=== PATIENT | female | born 1955 | race Caucasian/White ===

== ENCOUNTER 2016-05-21 22:08 | Observation (INO) | payer MEDICAID ==
[~2016-05-21 22:08] MED LIST: ALBU0.086 INH; ASCO500C PO; BECL80AE3 INH; CRAN450T PO; DIPH25 PO; DOCU1CAP39 PO; FURO1TAB93 PO; HYDR-4197 PO; INSU100V2 SQ; ISOS30 PO; KCL20 PO; LISI-363 PO; METF1000 PO; MULTTAB6 PO; NITR0.4S SL; PERC5TAB12 PO; PHEN12.5 PR; PREG25 PO; PROM25TA5 PO; PROT40TA PO; REST30CA PO; RIVA20 PO
[2016-05-21 22:14] VITALS: BP 189/84; PULSE 92; RESP 16; TEMP 98.6; O2SAT 96
[2016-05-21] MEDS ORDERED: ceFAZolin 2 GM PREMIX 50 ML IV ONE (22:45)
[2016-05-21] MEDS ORDERED: SODIUM CHLOR 0.9% 1000 ML INJ 1,000 ML IV SCH (22:45)
[2016-05-21] MEDS ORDERED: DIPHTH/TETANUS/ACEL PERTUSSIS (BOOSTER) 0.5 ML VIAL/PFS IM ONE (22:45)
[2016-05-21 23:09] LABS: AUTOMATED NEUTROPHIL # 3.4 TH/MM3 (1.8-7.7); BASOPHIL # 0.1 TH/MM3 (0-0.2); BASOPHIL % 1.3 % (0.0-2.0); EOSINOPHIL % 0.7 % (0.0-4.0); HEMATOCRIT 42.6 % (35.0-46.0); HEMO FLAGS DIFF FINAL; LYMPH % 26.2 % (9.0-44.0); LYMPHOCYTE # 1.4 TH/MM3 (1.0-4.8); MEAN CELL VOLUME 92.3 FL (80.0-100.0); MEAN CORPUSCULAR HEMOGLOBIN 32.4 PG (27.0-34.0); MEAN CORPUSCULAR HGB CONC 35.1 % (32.0-36.0); MONO % 7.5 % (0.0-8.0); NEUT % 64.3 % (16.0-70.0); PLATELET COUNT 162 TH/MM3 (150-450); RED BLOOD COUNT 4.62 MIL/MM3 (4.00-5.30); RED CELL DISTRIBUTION WIDTH 15.2 % (11.6-17.2); WHITE BLOOD COUNT 5.3 TH/MM3 (4.0-11.0)
[2016-05-21 23:19] LABS: APTT (PATIENT) 23.5 SEC (24.3-30.1)
[2016-05-21 23:25] LABS: ALKALINE PHOSPHATASE 113 U/L (45-117); ALT (GPT) 88 U/L (10-53); ANION GAP 12 MEQ/L (5-15); AST (GOT) 120 U/L (15-37); BICARBONATE 24.5 MEQ/L (21.0-32.0); BLOOD UREA NITROGEN 8 MG/DL (7-18); CHLORIDE 109 MEQ/L (98-107); GLOMERULAR FILTRATION RATE 57 ML/MIN (>89); SODIUM (NA) 145 MEQ/L (136-145); TOTAL BILIRUBIN ADULT 0.4 MG/DL (0.2-1.0)
[2016-05-21 23:27] LABS: CREATINE KINASE 55 U/L (26-192)
[2016-05-21 23:28] LABS: POTASSIUM 2.7 MEQ/L (3.5-5.1)
[2016-05-21 23:50] LABS: BACTERIA, URINE OCC /hpf; BLOOD, URINE NEG (NEG); GLUCOSE,URINE NEG (NEG); HYALINE CAST, URINE 1 /lpf (RARE); KETONE, URINE NEG (NEG); MUCUS URINE FEW /lpf (OCC); NITRITE,URINE NEG (NEG); PH, URINE 5.5 (5.0-8.5); SQUAMOUS EPITHELIAL CELL URINE 1 /hpf (0-5); URINE COLOR LIGHT-YELLOW (YELLW/STRAW)
[2016-05-21 23:55] LABS: AMPHETAMINE, URINE NEG (NEG); BARBITURATES, URINE NEG (NEG); COCAINE, URINE NEG (NEG)
[2016-05-21 23:58] LABS: COMMENT (UR) CULT NOT INDICATED; CULTURE IF INDICATED CULT NOT INDICATED
[2016-05-22] VITALS (11 sets, daily range): BP systolic 117–206; BP diastolic 67–118; PULSE 68–116; RESP 16–20; TEMP 96.8–98.6; O2SAT 95–99
--- NOTE | 2016-05-22 00:07 | RADRPT ---
EXAM DATE/TIME: 05/21/2016 23:37 [facility] COMPARISON: No previous studies available for comparison. INDICATIONS : Pelvic pain after fall. MEDICAL HISTORY : Chronic obstructive pulmonary disease. Cerebrovascular disease. Cardiovascular disease. Uterine cance r. Hypothryoidsim. Myocardial infarction. Hernia. Bladder suspension. Diabetes. Hepatitis C. SURGICAL HISTORY : Appendectomy. Cholecystectomy. Hysterectomy. ENCOUNTER: Initial ACUITY: 1 week PAIN SCORE: 5/10 LOCATION: Bilateral pelvis FINDINGS: There is motion blurring on image. A single frontal view of the pelvis demonstrates no evidence of fr acture. The bony pelvic ring is intact. Bony mineralization is normal. The soft tissues are intact . CONCLUSION: No acute disease. Jared Hathaway MD on May 22, 2016 at 0:04 Board Certified Radiologist. This report was verified electronically.
--- NOTE | 2016-05-22 00:09 | RADRPT ---
EXAM DATE/TIME: 05/21/2016 23:39 [facility] COMPARISON: CT THORAX W/O CONTRAST, July 08, 2015, 12:54. CHEST SINGLE AP, February 25, 2015, 17:02. INDICATIONS : Chest pain after fall. MEDICAL HISTORY : Chronic obstructive pulmonary disease. Cerebrovascular disease. Cardiovascular disease. Uterine cance r. Hypothryoidsim. Myocardial infarction. Hernia. Bladder suspension. Diabetes. Hepatitis C. SURGICAL HISTORY : Appendectomy. Cholecystectomy. Hysterectomy. ENCOUNTER: Initial ACUITY: 1 week PAIN SCORE: 5/10 LOCATION: Bilateral chest FINDINGS: A single view of the chest demonstrates the lungs to be symmetrically aerated without evidence of mas s, infiltrate or effusion. The cardiomediastinal contours are unremarkable. There is an old left rib fracture seen. CONCLUSION: No acute disease. Jared Hathaway MD on May 22, 2016 at 0:06 Board Certified Radiologist. This report was verified electronically.
--- NOTE | 2016-05-22 00:22 | RADRPT ---
EXAM DATE/TIME: 05/21/2016 23:52 [facility] COMPARISON: No previous studies available for comparison. INDICATIONS : ETOH, possible fall. RADIATION DOSE: 41.98 CTDIvol (mGy) MEDICAL HISTORY : Cardiovascular disease. Seizures. Hypertension. SURGICAL HISTORY : Cholecystectomy. Appendectomy.Hysterectomy. ENCOUNTER: Initial ACUITY: 1 day PAIN SCALE: 0/10 LOCATION: cranial TECHNIQUE: Multiple contiguous axial images were obtained of the head. Using automated exposure control and adj ustment of the mA and/or kV according to patient size, radiation dose was kept as low as reasonably a chievable to obtain optimal diagnostic quality images. FINDINGS: CEREBRUM: The ventricles are normal for age. No evidence of midline shift, mass lesion, hemorrhage or acute in farction. No extra-axial fluid collections are seen. POSTERIOR FOSSA: The cerebellum and brainstem are intact. The 4th ventricle is midline. The cerebellopontine angle i s unremarkable. EXTRACRANIAL: The visualized portion of the orbits is intact. SKULL: The calvaria is intact. No evidence of skull fracture. CONCLUSION: No acute disease. Jared Hathaway MD on May 22, 2016 at 0:20 Board Certified Radiologist. This report was verified electronically.
--- NOTE | 2016-05-22 00:23 | PD ---
HPI Chief Complaint: Fall Time Seen by Provider: 22:34 Travel History International Travel<30 days: No Contact w/Intl Traveler<30days: No Traveled to known affect area: No History of Present Illness HPI The patient is a 61 year old female who presents to the [facility] emergency department with a history of reportedly being trespassed by the police due to rolling onto a person's property prior to arrival. The patient was noted to be intoxicated. The patient reportedly passed out and struck her left ear on the ground. The patient arrives awake and alert in full C-spine immobilization on a backboard. The patient reports that she's had a 12 pack of beer today. The patient denies having any acute complaints. The patient has slurred speech and an odor of alcohol about her. The patient denies any recent fevers, cough, congestion, neck pain, chest pain, shortness of breath, abdominal pain, vomiting, diarrhea, urinary symptoms, or neurologic symptoms. PFSH Past Medical History Narrative Medical The patient's past medical history is significant for alcohol abuse, arthritis, asthma, anxiety and depression, COPD, diabetes mellitus, acid reflux, history of hepatitis C, hiatal hernia, hypertension, fibromyalgia, history of DVT, hypothyroidism, history of uterine cancer. Hx Anticoagulant Therapy: Yes Arthritis: Yes Asthma: Yes Autoimmune Disease: Yes Blood Disorders: No Anxiety: Yes Depression: Yes Heart Rhythm Problems: Yes Cancer: Yes (UTERINE) High Cholesterol: No Chemotherapy: Yes Chest Pain: Yes Congestive Heart Failure: Yes COPD: Yes Cerebrovascular Accident: Yes Diabetes: Yes Patient Takes Glucophage: Yes Diminished Hearing: No Gastrointestinal Disorders: Yes GERD: Yes Glaucoma: No Headaches: Yes Hepatitis: Yes (C, INTERFERON [place]) Hiatal Hernia: Yes Hypertension: Yes Immune Disorder: Yes (FIBROMYALGIA) Kidney Stones: No Psychiatric: Yes Respiratory: Yes Integumentary: Yes Myocardial Infarction: Yes Pneumonia: Yes Seizures: Yes Sickle Cell Disease: No Sleep Apnea: No Thyroid Disease: Yes (HYPO) Ulcer: No Past Surgical History Narrative Surgical The patient's past surgical history is significant for an appendectomy, C- section 3, cholecystectomy, bladder suspension, hysterectomy, dental extractions, tonsillectomy, nasal surgery, exploratory laparoscopy. Abdominal Surgery: Yes (EX LAP x4, BOWEL BLOCKAGE X 4) AICD: No Appendectomy: Yes Arteriovenous Shunt: No Section: Yes (X 3) Cholecystectomy: Yes Genitourinary Surgery: Yes (BLADDER SUSPENSION) Hysterectomy: Yes Insulin Pump: No Joint Replacement: No Oral Surgery: Yes (DENTAL EXTRACTION) Tonsillectomy: Yes Social History Alcohol Use: Yes (12 beers this evening) Tobacco Use: Yes (1 PPD) Substance Use: No (DENIES ) Allergies-Medications (Allergen,Severity, Reaction): Coded Allergies: Dairy (Verified Allergy, Severe, Anaphylaxis, 05/21/16) Iodine (Verified Allergy, Severe, Swelling, 05/21/16) Nonsteroidal Anti-Inflammatory Agts (Verified Allergy, Severe, HAS ULCERS , 05/21/16) Sulfa (Verified Allergy, Severe, HIVES AND RASH, 05/21/16) Tylenol (Verified Adverse Reaction, Unknown, STATES REFUSES DUE TO HEP C, 05/21/16) Reported Meds & Prescriptions Reported Meds & Active Scripts Active Reported Cranberry (Cranberry (Vaccinium Macrocarpon)) 450 Mg Tab 1 Tab PO BID Restoril (Temazepam) 30 Mg Cap 30 Mg PO HS PRN Xarelto (Rivaroxaban) 20 Mg Tab 20 Mg PO DAILY Phenergan (Promethazine HCl) 25 Mg Tab 25 Mg PO QID Lyrica (Pregabalin) 25 Mg Cap 25 Mg PO TID Potassium Chloride ER (Potassium Chloride) 20 Meq Tab 20 Meq PO DAILY Protonix (Pantoprazole Sodium) 40 Mg Tab 40 Mg PO DAILY Percocet (Oxycodone-Acetaminophen) 5-325 mg Tab 1-2 Tab PO Q6H PRN Nitroglycerin SL (Nitroglycerin) 0.4 Mg Subl 0.4 Mg SL DIRECTED PRN ONE TABLET UNDER THE TONGUE NEEDED FOR CHEST PAIN, MAY REPEAT EVERY FIVE MINUTES FOR A TOTAL OF 3 DOSES OR CALL 911 IF NO RELIEF Multivitamin Adults (Multiple Vitamins W/ Minerals) 1 Tab 1 Tab PO DAILY Metformin (Metformin HCl) 1,000 Mg Tab 1,000 Mg PO DAILY With a meal Lisinopril 20 Mg Tab 20 Mg PO DAILY Novolin R Inj (Insulin Human Regular) 1,000 Unit/10 Ml Vial 0 SQ DIRECTED Sliding Scale As Directed. Hydromorphone (Hydromorphone HCl) 4 Mg Tab 4 Mg PO Q4H PRN Lasix (Furosemide) 40 Mg Tab 40 Mg PO DAILY Colace (Docusate Sodium) 100 Mg Cap 100 Mg PO BID PRN Benadryl Allergy (Diphenhydramine HCl) 25 Mg Tab 25 Mg PO QID PRN Qvar Inh (Beclomethasone Dipropionate) 80 Mcg/Act Aero 2 Puff INH BID Ascorbic Acid 500 Mg Tab 500 Mg PO BID Albuterol Neb (Albuterol Sulfate) 2.5 Mg/3 Ml Neb 2.5 Mg NEB Q4HR NEB PRN While awake Review of Systems Except as stated in HPI: all other systems reviewed are Neg General / Constitutional: No: Fever Eyes: No: Visual changes HENT: No: Headaches Cardiovascular: No: Chest Pain or Discomfort Respiratory: No: Shortness of Breath Gastrointestinal: No: Abdominal Pain Genitourinary: No: Dysuria Musculoskeletal: No: Pain Skin: No Rash Neurologic: Positive: Weakness (generalized), Syncope, Slurred Speech, No: Focal Abnormalities, Change in Mentation, Sensory Disturbance Psychiatric: No: Depression Endocrine: No: Polydipsia Hematologic/Lymphatic: No: Easy Bruising Physical Exam Narrative General: The patient is a well-developed, thin appearing female, highly intoxicated on examination with slurred speech and an odor of alcohol about her. Head and Neck exam: Head is normocephalic, with an abrasion noted to the left ear. No active bleeding. Eyes: Pupils are equal round and reactive to light. Nose: Midline septum with pink mucous membranes Mouth: Dentition unremarkable. Moist mucus membranes. Posterior oropharynx is not erythematous. No tonsillar hypertrophy. Uvula midline. Airway patent. Neck: No palpable lymphadenopathy. No nuchal rigidity. No thyromegaly. Cardiovascular: Regular rate and rhythm without murmurs, gallops, or rubs. Lungs: Clear to auscultation bilaterally. No wheezes, rhonchi, or rales. Abdomen: Soft, midepigastric abdominal discomfort on palpation. No other tenderness on palpation of the other 4 quadrants of the abdomen. No guarding, rebound, or rigidity. Negative Brandywine sign. No tenderness on palpation of McBurney's point. Normal bowel sounds are audible. Extremities: No clubbing, cyanosis, or edema. 2+ pulses in all 4 extremities. No Tenderness on palpation. Back: No spinous process tenderness to palpation. No costovertebral angle tenderness to palpation. Neurologic Exam: Cranial nerves 2-12 were intact on exam. Strength is 5/5 in all 4 extremities. No sensory deficits noted. She has slurred speech with an odor of alcohol about her. She is oriented to person, place, however not time or situation. Data Data Last Documented VS Vital Signs Date Time Temp Pulse Resp B/P Pulse Ox O2 Delivery O2 Flow Rate FiO2 05/21/16 22:14 98.6 92 16 189/84 96 Orders Alcohol (Ethanol) (05/21/16 22:35) Urinalysis - C+S If Indicated (05/21/16 22:35) Chest, Single Ap (05/21/16 22:35) Pelvis, Ap Only (Routine) (05/21/16 22:35) Ct Brain W/O Iv Contrast(Rout) (05/21/16 22:35) Ct Cerv Spine W/O Contrast (05/21/16 22:35) Electrocardiogram (05/21/16 22:35) Iv Access Insert/Monitor (05/21/16 22:35) Ecg Monitoring (05/21/16 22:35) Oximetry (05/21/16 22:35) Cefazolin 2 Gm Premix (Ancef 2 Gm Premix (05/21/16 22:45) Etpv-Yff-Hrzfdv (Booster) Inj (Boostrix (05/21/16 22:45) Drug Screen, Random Urine (05/21/16 22:35) Complete Blood Count With Diff (05/21/16 22:35) Comprehensive Metabolic Panel (05/21/16 22:35) Creatine Kinase (Cpk) (05/21/16 22:35) Ckmb (Isoenzyme) Profile (05/21/16 22:35) Troponin I (05/21/16 22:35) B-Type Natriuretic Peptide (05/21/16 22:35) Prothrombin Time / Inr (Pt) (05/21/16 22:35) Act Partial Throm Time (Ptt) (05/21/16 22:35) Lipase (05/21/16 22:35) Sodium Chlor 0.9% 1000 Ml Inj (Ns 1000 M (05/21/16 22:45) Potassium Chloride Eff (K-Lyte Cl Eff) (05/22/16 02:15) Ns + Kcl 20 Meq Inj (Ns + Kcl 20 Meq Inj (05/22/16 02:15) Admit Order (Ed Use Only) (05/22/16 02:11) Labs Laboratory Tests Test 05/21/16 05/21/16 22:45 23:00 White Blood Count 5.3 TH/MM3 Red Blood Count 4.62 MIL/MM3 Hemoglobin 15.0 GM/DL Hematocrit 42.6 % Mean Corpuscular Volume 92.3 FL Mean Corpuscular Hemoglobin 32.4 PG Mean Corpuscular Hemoglobin 35.1 % Concent Red Cell Distribution Width 15.2 % Platelet Count 162 TH/MM3 Mean Platelet Volume 8.2 FL Neutrophils (%) (Auto) 64.3 % Lymphocytes (%) (Auto) 26.2 % Monocytes (%) (Auto) 7.5 % Eosinophils (%) (Auto) 0.7 % Basophils (%) (Auto) 1.3 % Neutrophils # (Auto) 3.4 TH/MM3 Lymphocytes # (Auto) 1.4 TH/MM3 Monocytes # (Auto) 0.4 TH/MM3 Eosinophils # (Auto) 0.0 TH/MM3 Basophils # (Auto) 0.1 TH/MM3 CBC Comment DIFF FINAL Differential Comment Prothrombin Time 11.0 SEC Prothromb Time International 1.0 RATIO Ratio Activated Partial 23.5 SEC Thromboplast Time Sodium Level 145 MEQ/L Potassium Level 2.7 MEQ/L Chloride Level 109 MEQ/L Carbon Dioxide Level 24.5 MEQ/L Anion Gap 12 MEQ/L Blood Urea Nitrogen 8 MG/DL Creatinine 0.99 MG/DL Estimat Glomerular Filtration 57 ML/MIN Rate Random Glucose 176 MG/DL Calcium Level 7.6 MG/DL Total Bilirubin 0.4 MG/DL Aspartate Amino Transf 120 U/L (AST/SGOT) Alanine Aminotransferase 88 U/L (ALT/SGPT) Alkaline Phosphatase 113 U/L Total Creatine Kinase 55 U/L Troponin I LESS THAN 0.02 NG/ML B-Type Natriuretic Peptide 42 PG/ML Total Protein 6.5 GM/DL Albumin 2.9 GM/DL Lipase 520 U/L Ethyl Alcohol Level 360 MG/DL Urine Color LIGHT-YELLOW Urine Turbidity CLEAR Urine pH 5.5 Urine Specific [place] 1.003 Urine Protein NEG mg/dL Urine Glucose (UA) NEG mg/dL Urine Ketones NEG mg/dL Urine Occult Blood NEG Urine Nitrite NEG Urine Bilirubin NEG Urine Urobilinogen LESS THAN 2.0 MG/DL Urine Leukocyte Esterase MOD Urine RBC 1 /hpf Urine WBC 1 /hpf Urine Squamous Epithelial 1 /hpf Cells Urine Bacteria OCC /hpf Urine Hyaline Casts 1 /lpf Urine Mucus FEW /lpf Microscopic Urinalysis Comment CULT NOT INDICATED Urine Opiates Screen NEG Urine Barbiturates Screen NEG Urine Amphetamines Screen NEG Urine Benzodiazepines Screen NEG Urine Cocaine Screen NEG Urine Cannabinoids Screen NEG MDM Medical Decision Making Medical Screen Exam Complete: Yes Emergency Medical Condition: Yes Medical Record Reviewed: Yes Interpretation(s) Last Impressions Pelvis X-Ray 05/21/[id number] Signed Impressions: Service Date/Time: Saturday, May 21, 2016 23:37 - CONCLUSION: No acute disease. Jared Hathaway MD Head CT [id number]/21/162234 Signed Impressions: Service Date/Time: Saturday, May 21, 2016 23:52 - CONCLUSION: No acute disease. Jared Hathaway MD Chest X-Ray [id number]/21/[id number] Signed Impressions: Service Date/Time: Saturday, May 21, 2016 23:39 - CONCLUSION: No acute disease. Jared Hathaway MD Cervical Spine CT 05/21/162234 Signed Impressions: Service Date/Time: Saturday, May 21, 2016 23:52 - CONCLUSION: 1. No acute bony injury seen. 2. Degenerative change. Jared Hathaawy MD Differential Diagnosis Syncope related to acute alcohol intoxication, versus electrolyte abnormality, versus cardiac arrhythmia, versus intracranial abnormality Narrative Course During the course of the patients emergency department visit, the patients history, examination, and differential diagnosis were reviewed with the patient. The patient had IV access obtained and blood work sent for analysis. The patient was placed on a educational institution president with oximetry and blood pressure monitoring. An EKG was done on arrival. The patient's EKG shows a sinus rhythm heart rate of 82, minimal voltage criteria for LVH, moderate T-wave abnormality, T waves inverted in V1, no acute ST segment elevation is noted. T waves are also inverted in V2, V3. The patient was provided normal saline IV fluids, tetanus was updated. Ancef 2 g were given IV. The patients laboratory studies were reviewed and remarkable for a CMP that is remarkable for an elevated AST and ALT, ALT greater than AST suspicious for viral hepatitis and the patient does have a known history of hepatitis C. The patient's lipase is elevated at 520, potassium 2.7 which will be supplemented orally and in her IV fluids, PTT 23.5, PT 11, urine drug screen is negative, alcohol level CCCLX, urinalysis is unremarkable. Radiology studies were reviewed and remarkable for a chest x-ray shows no acute abnormality. CT scan of the head and neck show no acute abnormality. Pelvic x- ray shows no acute abnormality. The patient will be admitted to the hospital for acute alcohol intoxication with syncope, acute pancreatitis and hypokalemia. The patients results were discussed with the patient, including the plan of care. I explained that further testing and/ or monitoring is indicated based on the patients history, examination, and/ or laboratory findings. Therefore, I recommended admission for additional evaluation. The patient expressed understanding and was agreeable with this plan. The patient was admitted to the hospital in stable condition and sent to a bed under the care of the [facility]. Physician Communication Physician Communication The patient's case was discussed with Dr. Sanchez who did agree to admit the patient for further evaluation and treatment at this time. Diagnosis Primary Impression: Syncope Qualified Code: R55 - Syncope, unspecified syncope type Additional Impressions: Alcohol intoxication Qualified Code: F10.129 - Alcohol intoxication, with unspecified complication Acute pancreatitis Qualified Code: K85.20 - Alcohol-induced acute pancreatitis, unspecified complication status Hypokalemia Admitting Information Admitting Physician Requests: Admit Scripts Pregabalin (Lyrica)25 Mg Cap25 Mg PO TID #60 CAP Ref 0 Prov:Deedee Cisneros MD 05/23/16 Oxycodone-Acetaminophen (Percocet)5-325 mg Tab1-2 Tab PO Q6H PRN (PAIN) #14 TAB Ref 0 Prov:Deedee Cisneros MD 05/23/16 Sharri Spencer MD May 22, 2016 00:23
--- NOTE | 2016-05-22 00:30 | RADRPT ---
EXAM DATE/TIME: 05/21/2016 23:52 [facility] COMPARISON: No previous studies available for comparison. INDICATIONS : ETOH, possible fall. RADIATION DOSE: 35.65 CTDIvol (mGy) MEDICAL HISTORY : Cerebrovascular disease. Seizures. Hypertension. SURGICAL HISTORY : Hysterectomy. Cholecystectomy.Appendectomy. ENCOUNTER: Initial ACUITY: 1 day PAIN SCALE: 0/10 LOCATION: neck TECHNIQUE: Volumetric scanning of the cervical spine was performed. Multiplanar reconstructions in the sagittal, coronal and oblique axial planes were performed. Using automated exposure control and adjustment o f the mA and/or kV according to patient size, radiation dose was kept as low as reasonably achievable to obtain optimal diagnostic quality images. FINDINGS: VERTEBRAE: Normal vertebral body height. ALIGNMENT: No evidence of subluxation. C2-C3: The bony spinal canal is normal in size. No evidence of disc bulge or herniation. The neural forami na are bilaterally patent. C3-C4: The disc demonstrates mild decrease height. There is minimal old and posterior osteophytic ridging. T he bony spinal canal is normal in size. The neural foramina are bilaterally patent. C4-C5: The bony spinal canal is normal in size. No evidence of disc bulge or herniation. The neural forami na are bilaterally patent. C5-C6: The disc demonstrates decreased height. There is minimal bulging and posterior osteophytic ridging. T here is uncovertebral hypertrophy particular on the left. There is mild narrowing of the left neural foramina. The right neural foramina is patent. C6-C7: The bony spinal canal is normal in size. No evidence of disc bulge or herniation. The neural forami na are bilaterally patent. C7-T1: The bony spinal canal is normal in size. No evidence of disc bulge or herniation. The neural forami na are bilaterally patent. CONCLUSION: 1. No acute bony injury seen. 2. Degenerative change. Jared Hathaway MD on May 22, 2016 at 0:21 Board Certified Radiologist. This report was verified electronically.
[2016-05-22] MEDS ORDERED: NS + KCL 20 MEQ INJ 1,000 ML IV SCH (02:15)
[2016-05-22] MEDS ORDERED: POTASSIUM CHLORIDE 25 MEQ EFFERVESCENT TAB PO ONE (02:15)
[2016-05-22] MEDS ORDERED: NALOXONE HCL 0.4 MG/ML AMP IV PRN (02:30)
[2016-05-22] MEDS ORDERED: SODIUM CHLORIDE 0.9% FLUSH 5 ML FLUSH FLUSH PRN (02:30)
[2016-05-22 04:09] LABS: BASOPHIL % 0.4 % (0.0-2.0); EOSINOPHIL % 0.7 % (0.0-4.0); HEMATOCRIT 43.2 % (35.0-46.0); HEMO FLAGS DIFF FINAL; LYMPH % 33.1 % (9.0-44.0); LYMPHOCYTE # 1.7 TH/MM3 (1.0-4.8); MEAN CELL VOLUME 92.5 FL (80.0-100.0); MEAN CORPUSCULAR HEMOGLOBIN 30.9 PG (27.0-34.0); MEAN CORPUSCULAR HGB CONC 33.4 % (32.0-36.0); NEUT % 56.8 % (16.0-70.0); PLATELET COUNT 150 TH/MM3 (150-450); RED BLOOD COUNT 4.67 MIL/MM3 (4.00-5.30); RED CELL DISTRIBUTION WIDTH 15.6 % (11.6-17.2); WHITE BLOOD COUNT 5.3 TH/MM3 (4.0-11.0)
[2016-05-22 04:42] LABS: ALKALINE PHOSPHATASE 111 U/L (45-117); ALT (GPT) 88 U/L (10-53); ANION GAP 7 MEQ/L (5-15); AST (GOT) 116 U/L (15-37); BICARBONATE 29.1 MEQ/L (21.0-32.0); BLOOD UREA NITROGEN 6 MG/DL (7-18); CHLORIDE 114 MEQ/L (98-107); GLOMERULAR FILTRATION RATE 68 ML/MIN (>89); SODIUM (NA) 150 MEQ/L (136-145); TOTAL BILIRUBIN ADULT 0.3 MG/DL (0.2-1.0)
[2016-05-22] MEDS: SODIUM CHLOR 0.45% 1000 ML INJ 1,000 ML IV SCH ×4 (07:05→20:13)
--- NOTE | 2016-05-22 07:09 | HHI.HP ---
HPI Service [facility] Primary Care Physician Elkin Rodriguez MD Admission Diagnosis ETOH intoxication, pancreatitis, hypokalemia Diagnoses: Chief Complaint: altered mental status Travel History International Travel<30 Days: No Contact w/Intl Traveler <30 Da: No Traveled to Known Affected Are: No History of Present Illness 61 year old female with multiple medical problems who presented to the [facility] emergency department with a history of reportedly being trespassed by the police due to rolling onto a person's property prior to arrival. The patient was noted to be intoxicated. The patient reportedly passed out and struck her left ear on the ground. The patient arrived awake and alert in full C-spine immobilization on a backboard. The patient reported that she's had a 12 pack of beer. The patient denies having any acute complaints. The patient has slurred speech and an odor of alcohol and tobacco. The patient denies any recent fevers, cough, congestion, neck pain, chest pain, shortness of breath, abdominal pain, vomiting, diarrhea, urinary symptoms, or neurologic symptoms. Says she is homeless now. Patient denies cp, sob, n/v/d/c. Says she has pain, chronic pain in her back. Says also that her Bp is gettign into a higher side at times. and is not controlled. She is also having tremors. Review of Systems 12 system ROS reviewed and negative except as noted in HPI Past Family Social History Past Medical History Arthritis Asthma Anxiety with depression COPD Diabetes mellitus GERD History of hepatitis C, status post treatment with interferon Hiatal hernia Hypertension Fibromyalgia History of DVT Hypothyroidism History of uterine cancer Past Surgical History Appendectomy section x3 Cholecystectomy Bladder suspension Hysterectomy Dental extraction Tonsillectomy Nasal surgery Exploratory laparoscopy Allergies: Coded Allergies: Dairy (Verified Allergy, Severe, Anaphylaxis, 05/21/16) Iodine (Verified Allergy, Severe, Swelling, 05/21/16) Nonsteroidal Anti-Inflammatory Agts (Verified Allergy, Severe, HAS ULCERS , 05/21/16) Sulfa (Verified Allergy, Severe, HIVES AND RASH, 05/21/16) Tylenol (Verified Adverse Reaction, Unknown, STATES REFUSES DUE TO HEP C, 05/21/16) Family History Brother had CAD and bipass at ~50 ya Mother with lymphoma, at 50 ya Social History Smokes one pack per day. Denies illicit drug use. Physical Exam Vital Signs Vital Signs Date Time Temp Pulse Resp B/P Pulse Ox O2 Delivery O2 Flow Rate FiO2 05/22/16 06:47 82 05/22/16 05:42 98.4 68 18 141/74 97 05/22/16 03:00 75 16 146/78 96 Room Air 05/21/16 22:14 98.6 92 16 189/84 96 Physical Exam GENERAL: This is a 61 yo female, appearing older than the stated age, well- nourished, well-developed patient, in no apparent distress. SKIN: No rashes. Some ecchymoses noted on the left shoulder. Cool and dry. HEAD: Atraumatic. Normocephalic. No temporal or scalp tenderness. EYES: Pupils equal round and reactive. Extraocular motions intact. No scleral icterus. No injection or drainage. ENT: Nose without bleeding, purulent drainage or septal hematoma. Throat without erythema, tonsillar hypertrophy or exudate. Uvula midline. Airway patent. NECK: Trachea midline. No JVD or lymphadenopathy. Supple, nontender, no meningeal signs. CARDIOVASCULAR: Regular rate and rhythm without murmurs, gallops, or rubs. RESPIRATORY: Clear to auscultation. Breath sounds equal bilaterally. No wheezes , rales, or rhonchi. GASTROINTESTINAL: Surgical scars on abdomen from prior surgeries. Abdomen soft , non-tender, nondistended. No hepato-splenomegaly, or palpable masses. No guarding. MUSCULOSKELETAL: Extremities without clubbing, cyanosis, or edema. No joint tenderness, effusion, or edema noted. No calf tenderness. Negative Homans sign bilaterally. NEUROLOGICAL: Awake and alert. Cranial nerves II through XII intact. Motor and sensory grossly within normal limits. Five out of 5 muscle strength in all muscle groups. Normal speech. Laboratory Laboratory Tests Test 05/21/16 05/21/16 05/22/16 22:45 23:00 03:53 White Blood Count 5.3 5.3 Red Blood Count 4.62 4.67 Hemoglobin 15.0 14.4 Hematocrit 42.6 43.2 Mean Corpuscular Volume 92.3 92.5 Mean Corpuscular Hemoglobin 32.4 30.9 Mean Corpuscular Hemoglobin 35.1 33.4 Concent Red Cell Distribution Width 15.2 15.6 Platelet Count 162 150 Mean Platelet Volume 8.2 7.6 Neutrophils (%) (Auto) 64.3 56.8 Lymphocytes (%) (Auto) 26.2 33.1 Monocytes (%) (Auto) 7.5 9.0 Eosinophils (%) (Auto) 0.7 0.7 Basophils (%) (Auto) 1.3 0.4 Neutrophils # (Auto) 3.4 3.0 Lymphocytes # (Auto) 1.4 1.7 Monocytes # (Auto) 0.4 0.5 Eosinophils # (Auto) 0.0 0.0 Basophils # (Auto) 0.1 0.0 CBC Comment DIFF FINAL DIFF FINAL Differential Comment Prothrombin Time 11.0 Prothromb Time International 1.0 Ratio Activated Partial 23.5 Thromboplast Time Sodium Level 145 150 Potassium Level 2.7 4.0 Chloride Level 109 114 Carbon Dioxide Level 24.5 29.1 Anion Gap 12 7 Blood Urea Nitrogen 8 6 Creatinine 0.99 0.85 Estimat Glomerular Filtration 57 68 Rate Random Glucose 176 96 Calcium Level 7.6 7.7 Total Bilirubin 0.4 0.3 Aspartate Amino Transf 120 116 (AST/SGOT) Alanine Aminotransferase 88 88 (ALT/SGPT) Alkaline Phosphatase 113 111 Total Creatine Kinase 55 Troponin I LESS THAN 0.02 B-Type Natriuretic Peptide 42 Total Protein 6.5 6.5 Albumin 2.9 3.0 Lipase 520 267 Ethyl Alcohol Level 360 Urine Color LIGHT-YELLOW Urine Turbidity CLEAR Urine pH 5.5 Urine Specific [place] 1.003 Urine Protein NEG Urine Glucose (UA) NEG Urine Ketones NEG Urine Occult Blood NEG Urine Nitrite NEG Urine Bilirubin NEG Urine Urobilinogen LESS THAN 2.0 Urine Leukocyte Esterase MOD Urine RBC 1 Urine WBC 1 Urine Squamous Epithelial 1 Cells Urine Bacteria OCC Urine Hyaline Casts 1 Urine Mucus FEW Microscopic Urinalysis Comment CULT NOT INDICATED Urine Opiates Screen NEG Urine Barbiturates Screen NEG Urine Amphetamines Screen NEG Urine Benzodiazepines Screen NEG Urine Cocaine Screen NEG Urine Cannabinoids Screen NEG Result Diagram: 05/22/16 0353 05/22/16 0353 Imaging Last Impressions Pelvis X-Ray 05/21/16 1041 Signed Impressions: Service Date/Time: Saturday, May 21, 2016 23:37 - CONCLUSION: No acute disease. Jared Hathaway MD Head CT 05/21/162234 Signed Impressions: Service Date/Time: Saturday, May 21, 2016 23:52 - CONCLUSION: No acute disease. Jared Hathaway MD Chest X-Ray 05/21/162234 Signed Impressions: Service Date/Time: Saturday, May 21, 2016 23:39 - CONCLUSION: No acute disease. Jared Hathaway MD Cervical Spine CT 05/21/162234 Signed Impressions: Service Date/Time: Saturday, May 21, 2016 23:52 - CONCLUSION: 1. No acute bony injury seen. 2. Degenerative change. Jared Hathaway MD Assessment and Plan Assessment and Plan Alcohol intoxication: EtOH level on admission 300s. Monitor. Seizure precautions. EtOH withdrawal,. protocol. Patient with multiple admission with the same. Monitor VS Hypokalemia: K 2.8 on admission replaced , repeat K level of 4. Monitor and replace. Patient is on lasix and replace with daily KCl Hypertension uncontrolled at this time. Resume home meds. Chronic medical problems including asthma, anxiety/depression, COPD, hepatitis C , fibromyalgia, chronic pain, hypothyroidism: Continue home medications. Diabetes mellitus: Monitor Accu-Cheks and cover with sliding scale insulin. H/o DVT/on xarelto DVT prophylaxis: xarelto CM consult for DC plan Code Status full Discussed Condition With patient, nurse Deedee Cisneros MD May 22, 2016 07:09
[2016-05-22] MEDS ORDERED: FLUMAZENIL 0.5 MG/5 ML VIAL IV PUSH PRN ×2 (07:15→10:15)
[2016-05-22] MEDS ORDERED: MAGNESIUM HYDROXIDE SUSP 30 ML CUP PO PRN (07:15)
[2016-05-22] MEDS ORDERED: ONDANSETRON HCL 4 MG/2 ML VIAL IVP PRN (07:15)
[2016-05-22] MEDS ORDERED: BISACODYL 10 MG SUPP PR PRN (07:15)
[2016-05-22] MEDS ORDERED: ENOXAPARIN SODIUM 40 MG/0.4 ML SYRINGE SQ SCH (08:00)
[2016-05-22 08:05] LABS: MAGNESIUM 1.7 MG/DL (1.5-2.5)
[2016-05-22] MEDS: THIAMINE HCL 100 MG TAB PO SCH (09:00)
[2016-05-22] MEDS: FAMOTIDINE 20 MG TAB PO SCH ×2 (09:00→20:04)
[2016-05-22] MEDS: FOLIC ACID 1 MG TAB PO SCH (09:00)
[2016-05-22] MEDS: SODIUM CHLORIDE 0.9% FLUSH 5 ML FLUSH FLUSH SCH ×2 (09:00→20:02)
[2016-05-22] MEDS ORDERED: GLUCAGON 1 MG/ML VIAL OTHER PRN (10:00)
[2016-05-22] MEDS ORDERED: DEXTROSE 50% IN WATER 50 ML VIAL(D50) IV PUSH PRN (10:00)
[2016-05-22] MEDS ORDERED: cloNIDine HCL 0.1 MG TAB PO PRN (10:15)
[2016-05-22] MEDS ORDERED: LORazepam 2 MG/ML VIAL IV PUSH PRN ×4 (10:15)
[2016-05-22] MEDS ORDERED: LORazepam 2 MG TAB PO PRN (10:15)
[2016-05-22] MEDS ORDERED: HALOPERIDOL LACTATE 5 MG/ML AMP IM PRN (10:15)
[2016-05-22] MEDS: INSULIN ASPART SUPPLEMENTAL SCALE SQ SCH ×3 (11:00→20:05)
[2016-05-22] MEDS ORDERED: ALBU0.08 NEB (11:40)
[2016-05-22] MEDS ORDERED: ASCO500T PO (11:44)
[2016-05-22] MEDS ORDERED: BECL80AE3 INH (11:47)
[2016-05-22] MEDS ORDERED: BENA25TA3 PO (11:50)
[2016-05-22] MEDS ORDERED: COLA100C3 PO (11:51)
[2016-05-22] MEDS ORDERED: FURO1TAB60 PO (11:52)
[2016-05-22] MEDS ORDERED: HYDR4TAB PO (11:53)
[2016-05-22] MEDS ORDERED: NOVORP2 SQ (11:57)
[2016-05-22] MEDS ORDERED: LISI-515 PO (11:59)
[2016-05-22] MEDS ORDERED: METF1000 PO (11:59)
[2016-05-22] MEDS ORDERED: MULT1TAB84 PO (12:00)
[2016-05-22] MEDS ORDERED: NITR1SUB3 SL (12:00)
[2016-05-22] MEDS ORDERED: PROT40TA PO (12:01)
[2016-05-22] MEDS ORDERED: PERC5TAB12 PO (12:01)
[2016-05-22] MEDS ORDERED: POTA-163 PO (12:02)
[2016-05-22] MEDS ORDERED: PREG25 PO (12:03)
[2016-05-22] MEDS ORDERED: PROM25TA5 PO (12:05)
[2016-05-22] MEDS ORDERED: XARE20TA PO (12:06)
[2016-05-22] MEDS ORDERED: REST30CA PO (12:08)
[2016-05-22] MEDS ORDERED: CRAN450T PO (12:12)
[2016-05-22] MEDS: LORazepam 1 MG TAB PO PRN ×3 (12:26→23:13)
[2016-05-22] MEDS ORDERED: DOCUSATE SODIUM 100 MG CAP PO PRN (12:30)
[2016-05-22] MEDS ORDERED: NITROGLYCERIN 0.4 MG SL 25 TABS/BTL SL PRN (12:30)
[2016-05-22] MEDS ORDERED: RESP: ALBUTEROL 2.5 MG/3 ML NEB (PRN) NEB (12:30)
[2016-05-22] MEDS: PREGABALIN 25 MG CAP PO SCH ×2 (13:00→18:00)
[2016-05-22] MEDS ORDERED: FUROSEMIDE 40 MG TAB PO ONE (13:00)
[2016-05-22] MEDS: PROMETHAZINE HCL 25 MG TAB PO SCH ×3 (14:16→20:03)
[2016-05-22] MEDS: RIVAROXABAN 20 MG TAB PO SCH (14:18)
[2016-05-22] MEDS: oxyCODONE/ACETAMINOPHEN 5 MG/325 MG TAB PO PRN (14:18)
[2016-05-22] MEDS: LISINOPRIL 20 MG TAB PO SCH (14:19)
[2016-05-22] MEDS: PANTOPRAZOLE SOD 40 MG DELAYED RELEASE TAB PO SCH (14:19)
--- NOTE | 2016-05-22 17:01 | EKG ---
Date Performed: 05/22/2016 Time Performed: 00:14:27 PTAGE: 61 years EKG: Sinus rhythm MINIMAL VOLTAGE CRITERIA FOR LVH, CONSIDER NORMAL VARIANT MODERATE T-WAVE ABNORMALITY, CONSIDER ANTE RIOR ISCHEMIA Since previous tracing, no significant change noted ABNORMAL ECG PREVIOUS TRACING : 07/08/2015 11.58 DOCTOR: Arturo Chen Interpretating Date/Time 05/22/2016 16:59:47
[2016-05-22] MEDS: ASCORBIC ACID 500 MG TAB PO SCH (20:04)
[2016-05-22] MEDS: BECLOMETHASONE DIPROPIONATE 80 MCG/ACT 8.7 GM INHALER INH SCH (20:48)
[2016-05-22] MEDS ORDERED: CRANBERRY PO SCH (21:00)
[2016-05-23 04:03] VITALS: BP 164/77; PULSE 81; RESP 16; TEMP 97; O2SAT 96
[2016-05-23] MEDS: LORazepam 1 MG TAB PO PRN ×2 (04:55→09:55)
[2016-05-23 04:56] LABS: ANION GAP 4 MEQ/L (5-15); AST (GOT) 72 U/L (15-37); BICARBONATE 31.1 MEQ/L (21.0-32.0); BLOOD UREA NITROGEN 9 MG/DL (7-18); CHLORIDE 108 MEQ/L (98-107); GLOMERULAR FILTRATION RATE 71 ML/MIN (>89); POTASSIUM 3.7 MEQ/L (3.5-5.1); SODIUM (NA) 143 MEQ/L (136-145)
[2016-05-23] MEDS: oxyCODONE/ACETAMINOPHEN 5 MG/325 MG TAB PO PRN (04:56)
[2016-05-23 04:59] LABS: ALKALINE PHOSPHATASE 109 U/L (45-117); ALT (GPT) 62 U/L (10-53); TOTAL BILIRUBIN ADULT 0.4 MG/DL (0.2-1.0)
[2016-05-23] MEDS: INSULIN ASPART SUPPLEMENTAL SCALE SQ SCH ×2 (06:27→11:00)
[2016-05-23] MEDS ORDERED: METF1000 PO (07:47)
[2016-05-23] MEDS ORDERED: PREG25 PO (07:47)
[2016-05-23] MEDS ORDERED: COLA100C3 PO (07:47)
[2016-05-23] MEDS ORDERED: XARE20TA PO (07:47)
[2016-05-23] MEDS ORDERED: PROM25TA5 PO (07:47)
[2016-05-23] MEDS ORDERED: PROT40TA PO (07:47)
[2016-05-23] MEDS ORDERED: NOVORP2 SQ (07:47)
[2016-05-23] MEDS ORDERED: POTA-163 PO (07:47)
[2016-05-23] MEDS ORDERED: LISI-515 PO (07:47)
[2016-05-23] MEDS ORDERED: PERC5TAB12 PO (07:47)
[2016-05-23] MEDS ORDERED: ALBU0.08 NEB (07:47)
[2016-05-23] MEDS ORDERED: FURO1TAB60 PO (07:47)
[2016-05-23] MEDS ORDERED: BECL80AE3 INH (07:47)
--- NOTE | 2016-05-23 07:47 | HHI.DCPOC ---
Discharge Care Plan Goals to Promote Your Health * To prevent worsening of your condition and complications * To maintain your health at the optimal level Directions to Meet Your Goals Take your medications as prescribed Follow your dietary instruction Follow activity as directed Keep your appointments as scheduled Take your immunizations and boosters as scheduled If your symptoms worsen call your PCP, if no PCP go to Urgent Care Center or Emergency Room Smoking is Dangerous to Your Health. Avoid second hand smoke Call the 24-hour hour crisis hotline for domestic abuse at Deedee Cisneros MD May 23, 2016 07:47
[2016-05-23] MEDS ORDERED: VITA100T2 PO (07:48)
[2016-05-23] MEDS ORDERED: CHLO10CA2 PO (07:48)
[2016-05-23 07:56] VITALS: BP 186/84; PULSE 64; RESP 17; TEMP 98; O2SAT 95
--- NOTE | 2016-05-23 07:57 | HHI.PR ---
Subjective Remarks Back to baseline mentation. Patient say sshe run out of her medications. Says she has an upcoming appointment with a new PCP. No fever or chills. Appear in nad. No n/v/d/c. Denies fever or chills. Objective Vitals Vital Signs Date Time Temp Pulse Resp B/P Pulse Ox O2 Delivery O2 Flow Rate FiO2 05/23/16 04:03 97.0 81 16 164/77 96 05/22/16 23:30 98.3 116 16 154/82 95 05/22/16 20:00 82 05/22/16 19:55 98.6 108 18 142/90 95 05/22/16 15:18 20 05/22/16 15:12 98 18 199/91 97 05/22/16 14:13 101 204/118 05/22/16 11:54 86 18 206/103 96 05/22/16 09:00 91 18 180/100 99 I/O 05/22/16 05/22/16 05/22/16 05/23/16 05/23/16 05/23/16 07:00 15:00 23:00 07:00 15:00 23:00 Intake Total 500 ml 550 ml Balance 500 ml 550 ml Intake Oral 500 ml 550 ml # Voids 1 2 # Bowel Movements 0 0 Result Diagram: 05/22/16 0353 05/23/16 0353 Imaging Last Impressions Pelvis X-Ray 05/21/162234 Signed Impressions: Service Date/Time: Saturday, May 21, 2016 23:37 - CONCLUSION: No acute disease. Jared Hathaway MD Head CT 05/21/162234 Signed Impressions: Service Date/Time: Saturday, May 21, 2016 23:52 - CONCLUSION: No acute disease. Jared Hathaway MD Chest X-Ray 05/21/162234 Signed Impressions: Service Date/Time: Saturday, May 21, 2016 23:39 - CONCLUSION: No acute disease. Jared Hathaway MD Cervical Spine CT 05/21/162234 Signed Impressions: Service Date/Time: Saturday, May 21, 2016 23:52 - CONCLUSION: 1. No acute bony injury seen. 2. Degenerative change. Jared Hathaway MD Objective Remarks GENERAL: This is a 61 yo female, appearing older than the stated age, well- nourished, well-developed patient, in no apparent distress. SKIN: No rashes. Some ecchymoses noted on the left shoulder. Cool and dry. HEAD: Atraumatic. Normocephalic. No temporal or scalp tenderness. EYES: Pupils equal round and reactive. Extraocular motions intact. No scleral icterus. No injection or drainage. ENT: Nose without bleeding, purulent drainage or septal hematoma. Throat without erythema, tonsillar hypertrophy or exudate. Uvula midline. Airway patent. NECK: Trachea midline. No JVD or lymphadenopathy. Supple, nontender, no meningeal signs. CARDIOVASCULAR: Regular rate and rhythm without murmurs, gallops, or rubs. RESPIRATORY: Clear to auscultation. Breath sounds equal bilaterally. No wheezes , rales, or rhonchi. GASTROINTESTINAL: Surgical scars on abdomen from prior surgeries. Abdomen soft , non-tender, nondistended. No hepato-splenomegaly, or palpable masses. No guarding. MUSCULOSKELETAL: Extremities without clubbing, cyanosis, or edema. No joint tenderness, effusion, or edema noted. No calf tenderness. Negative Homans sign bilaterally. NEUROLOGICAL: Awake and alert. Cranial nerves II through XII intact. Motor and sensory grossly within normal limits. Five out of 5 muscle strength in all muscle groups. Normal speech. A/P Assessment and Plan Alcohol intoxication: EtOH level on admission 300s. Monitor. Seizure precautions. EtOH withdrawal,. protocol. Patient with multiple admission with the same. Monitor VS Hypokalemia: K 2.8 on admission replaced , repeat K level of 4. Monitor and replace. Patient is on lasix and replace with daily KCl. K level normal Hypertension uncontrolled on admission. Resume home meds. Patient says she run out of meds. BP better controlled. Monitor. Chronic medical problems including asthma, anxiety/depression, COPD, hepatitis C , fibromyalgia, chronic pain, hypothyroidism: Continue home medications. Diabetes mellitus: Monitor Accu-Cheks and cover with sliding scale insulin. H/o DVT/on xarelto DVT prophylaxis: xarelto CM consult for DC plan Code Status full Discussed Condition With patient, nurse,? family at bedside Discharge plan DC home in fairly stable condition Meds per med reconciliations, meds refilled. To follow up with PCP and consultants Diet healthy heart diet and diabetic diet Activity ad juan carlos as tolerated. Stop EtOH use. Cosma,Deedee MD May 23, 2016 07:57
[2016-05-23] MEDS ORDERED: ENALAPRILAT 2.5 MG/2 ML VIAL IV PUSH PRN (08:00)
[2016-05-23] MEDS: SODIUM CHLORIDE 0.9% FLUSH 5 ML FLUSH FLUSH SCH (08:25)
[2016-05-23] MEDS: PROMETHAZINE HCL 25 MG TAB PO SCH ×2 (08:25→12:09)
[2016-05-23] MEDS: RIVAROXABAN 20 MG TAB PO SCH (08:26)
[2016-05-23] MEDS: ASCORBIC ACID 500 MG TAB PO SCH (08:26)
[2016-05-23] MEDS: PANTOPRAZOLE SOD 40 MG DELAYED RELEASE TAB PO SCH (08:26)
[2016-05-23] MEDS: THIAMINE HCL 100 MG TAB PO SCH (08:26)
[2016-05-23] MEDS: PREGABALIN 25 MG CAP PO SCH ×2 (08:26→12:09)
[2016-05-23] MEDS: FAMOTIDINE 20 MG TAB PO SCH (08:27)
[2016-05-23] MEDS: BECLOMETHASONE DIPROPIONATE 80 MCG/ACT 8.7 GM INHALER INH SCH (08:27)
[2016-05-23] MEDS: FOLIC ACID 1 MG TAB PO SCH (08:27)
[2016-05-23] MEDS: LISINOPRIL 20 MG TAB PO SCH (08:27)
[2016-05-23] MEDS ORDERED: POTASSIUM CHLORIDE 20 MEQ CONTROLLED RELEASE TAB PO SCH (09:00)
[2016-05-23] MEDS ORDERED: FUROSEMIDE 40 MG TAB PO SCH (09:00)
[2016-05-23] MEDS ORDERED: LORA-475 PO (11:12)
[2016-05-23 11:25] VITALS: BP 173/86
[2016-05-23 13:11] VITALS: RESP 18
[2016-05-23] MEDS ORDERED: LORA-392 PO (13:20)
[2016-05-23] MEDS ORDERED: WALKER/ADULT/FO1 MIS (13:22)
== END 2016-05-23 14:03 | disposition home or self-care (01) ==
LOC: NEPC 22:08 → NEDA 05-22 02:13 → NEPFCDU 05-22 04:41
PROVIDERS: ADMIT Hospitalist; ATTEND Hospitalist
DX: F10.239 Alcohol dependence with withdrawal, unspecified (principal); K85.20 Alcohol induced acute pancreatitis without necrosis or infection; Y90.8 Blood alcohol level of 240 mg/100 ml or more; E87.6 Hypokalemia; B19.20 Unspecified viral hepatitis C without hepatic coma; R47.81 Slurred speech; F17.210 Nicotine dependence, cigarettes, uncomplicated; I11.0 Hypertensive heart disease with heart failure; I50.9 Heart failure, unspecified; J44.9 Chronic obstructive pulmonary disease, unspecified; E11.9 Type 2 diabetes mellitus without complications; I25.2 Old myocardial infarction; M79.7 Fibromyalgia; J45.909 Unspecified asthma, uncomplicated; G89.29 Other chronic pain; Z86.718 Personal history of other venous thrombosis and embolism; Z59.0 Homelessness; Z79.84 Long term (current) use of oral hypoglycemic drugs; Z79.01 Long term (current) use of anticoagulants; Z86.73 Personal history of transient ischemic attack (TIA), and cerebral infarction without residual deficits; Z23 Encounter for immunization
CPT/HCPCS: 70450; 71010; 72125; 72170; 80053; 80307; 80320; 81001; 82550; 82948; 83690; 83735; 83880; 84100; 84484; 85025; 85610; 85730; 90471; 90715; 93005; 96374; 97161; 99285; G0378; J0690; J1815; J3480; J7030; Q0169

== ENCOUNTER 2017-05-11 14:36 | Emergency (ER) | payer MEDICAID, OTHER ==
[~2017-05-11] VITALS: Ht 152.4 cm; Wt 56.0 kg
[~2017-05-11 14:36] MED LIST changes: +ALBU0.08 NEB; -ALBU0.086 INH; -ASCO500C PO; +ASCO500T PO; -CRAN450T PO; -DIPH25 PO; -DOCU1CAP39 PO; +FURO1TAB60 PO; -FURO1TAB93 PO; -HYDR-4197 PO; -INSU100V2 SQ; -ISOS30 PO; -KCL20 PO; +LACT PO; -LISI-363 PO; +LISI-515 PO; -MULTTAB6 PO; -NITR0.4S SL; +NITR1SUB3 SL; +NOVORP2 SQ; -PERC5TAB12 PO; -PHEN12.5 PR; +POTA-163 PO; -PROM25TA5 PO; +REME30TA PO; -REST30CA PO; -RIVA20 PO; +WALKER/ADULT/FO1 MIS; +XARE20TA PO
[2017-05-11 14:50] VITALS: BP 139/69; PULSE 80; RESP 18; TEMP 98.4; O2SAT 98
--- NOTE | 2017-05-11 16:00 | PD ---
HPI Chief Complaint: Alcohol/Drug Intoxication Time Seen by Provider: 14:46 Travel History International Travel<30 days: No Contact w/Intl Traveler<30days: No Traveled to known affect area: No History of Present Illness HPI 62-year-old female arrives to the emergency department under [place] act for alcohol intoxication. Patient reports drinking 1-1/2 beers and vodka. She denies suicidal or homicidal ideations. Denies illicit drug use. Reports alcohol use is "very rare." She has no emergent medical complaints at this time. Denies chest pain, shortness of breath, abdominal pain, vomiting, fevers. Duration unknown. Onset unknown. No known aggravating or relieving factors. Primary care provider is Dr. Blackwood. History of non-Hodgkin's lymphoma. Multiple allergies as listed on the chart. Has no other medical complaints. No other modifying factors or associated signs and symptoms. PFSH Past Medical History Hx Anticoagulant Therapy: Yes Arthritis: Yes Asthma: Yes Autoimmune Disease: Yes Blood Disorders: No Anxiety: Yes Depression: Yes Heart Rhythm Problems: Yes Cancer: Yes (UTERINE) High Cholesterol: No Chemotherapy: Yes Chest Pain: Yes Congestive Heart Failure: Yes COPD: Yes Cerebrovascular Accident: Yes Diabetes: Yes Patient Takes Glucophage: No (UNKNOWN) Diminished Hearing: No Endocrine: Yes (DM) Gastrointestinal Disorders: Yes (see emr) GERD: Yes Glaucoma: No Headaches: Yes Hepatitis: Yes (C, INTERFERON TX) Hiatal Hernia: Yes Heparin Induced Thrombocytopen: No Hypertension: Yes Immune Disorder: Yes (FIBROMYALGIA) Implanted Vascular Access Dvce: No Kidney Stones: No Psychiatric: Yes Respiratory: Yes Integumentary: Yes Myocardial Infarction: Yes Pneumonia: Yes Radiation Therapy: Yes Seizures: Yes Sickle Cell Disease: No Sleep Apnea: No Thyroid Disease: Yes (HYPO) Ulcer: No Past Surgical History Abdominal Surgery: Yes (exploratory x4, BOWEL BLOCKAGE X 4) AICD: No Appendectomy: Yes Arteriovenous Shunt: No Section: Yes (X 3) Cholecystectomy: Yes Genitourinary Surgery: Yes (BLADDER SUSPENSION) Hysterectomy: Yes Insulin Pump: No Joint Replacement: No Oral Surgery: Yes (DENTAL EXTRACTION) Tonsillectomy: Yes Social History Alcohol Use: Yes (12 beers DAILY) Tobacco Use: Yes (1 PPD) Substance Use: Yes Allergies-Medications (Allergen,Severity, Reaction): Coded Allergies: Sulfa (Sulfonamide Antibiotics) (Verified Allergy, Severe, HIVES AND RASH , 04/14/17) diclofenac (Verified Allergy, Severe, HAS ULCERS, 04/14/17) etodolac (Verified Allergy, Severe, HAS ULCERS, 04/14/17) flurbiprofen (Verified Allergy, Severe, HAS ULCERS, 04/14/17) ibuprofen (Verified Allergy, Severe, HAS ULCERS, 04/14/17) indomethacin (Verified Allergy, Severe, HAS ULCERS, 04/14/17) iodine (Verified Allergy, Severe, Swelling, 04/14/17) ketoprofen (Verified Allergy, Severe, HAS ULCERS, 04/14/17) ketorolac (Verified Allergy, Severe, HAS ULCERS, 04/14/17) naproxen (Verified Allergy, Severe, HAS ULCERS, 04/14/17) oxaprozin (Verified Allergy, Severe, HAS ULCERS, 04/14/17) potassium iodide (Verified Allergy, Severe, Swelling, 04/14/17) povidone-iodine (Verified Allergy, Severe, Swelling, 04/14/17) sodium iodide (Verified Allergy, Severe, Swelling, 04/14/17) sodium iodide (Verified Allergy, Severe, Swelling, 04/14/17) acetaminophen (Verified Adverse Reaction, Unknown, STATES REFUSES DUE TO HEP C, 04/14/17) Reported Meds & Prescriptions Reported Meds & Active Scripts Active Remeron (Mirtazapine) 30 Mg Tab 30 Mg PO HS Acidophilus/l-Sporogenes (Lactobacillus Acidophilus) 35 Million Cell-25 Million Cell Tab 1 Tab PO TID Xarelto (Rivaroxaban) 20 Mg Tab 20 Mg PO DAILY Lyrica (Pregabalin) 25 Mg Cap 25 Mg PO TID Potassium Chloride ER (Potassium Chloride) 20 Meq Tab 20 Meq PO DAILY Protonix (Pantoprazole Sodium) 40 Mg Tab 40 Mg PO DAILY Metformin (Metformin HCl) 1,000 Mg Tab 1,000 Mg PO DAILY With a meal Lisinopril 20 Mg Tab 20 Mg PO DAILY Lasix (Furosemide) 40 Mg Tab 40 Mg PO DAILY Qvar Inh (Beclomethasone Dipropionate) 80 Mcg/Act Aero 2 Puff INH BID Albuterol Neb (Albuterol Sulfate) 2.5 Mg/3 Ml Neb 2.5 Mg NEB Q4HR NEB PRN While awake Nitroglycerin SL (Nitroglycerin) 0.4 Mg Subl 0.4 Mg SL DIRECTED PRN ONE TABLET UNDER THE TONGUE NEEDED FOR CHEST PAIN, MAY REPEAT EVERY FIVE MINUTES FOR A TOTAL OF 3 DOSES OR CALL 911 IF NO RELIEF Ascorbic Acid 500 Mg Tab 500 Mg PO BID Walker/Adult/Folding (Device) 1 Mis Mis 1 Ea .ROUTE DIRECTED Novolin R Inj (Insulin Human Regular) 1,000 Unit/10 Ml Vial 0 SQ DIRECTED Sliding Scale As Directed. Review of Systems Except as stated in HPI: all other systems reviewed are Neg Physical Exam Narrative GENERAL: Well-nourished, well-developed female patient, in no acute distress; disheveled, smells of EtOH SKIN: Warm and dry. HEAD: Atraumatic. Normocephalic. EYES: Pupils equal and round. ENT: Mucosa pink and moist. NECK: Supple. Trachea midline. CARDIOVASCULAR: Regular rate and rhythm. No murmur appreciated. RESPIRATORY: No accessory muscle use. Clear to auscultation. Breath sounds equal bilaterally. GASTROINTESTINAL: Abdomen soft, non-tender, nondistended. Hepatic and splenic margins not palpable. Bowel sounds are active 4 quadrants. MUSCULOSKELETAL: No obvious deformities. No clubbing. No cyanosis. No edema. NEUROLOGICAL: Awake and alert. Oriented 3. No obvious cranial nerve deficits. Motor grossly within normal limits. Normal speech. Moves all extremities. 5/5 strength to all extremities. PSYCHIATRIC: No delusional thought processes. No hallucinations. Data Data Last Documented VS Vital Signs Date Time Temp Pulse Resp B/P (MAP) Pulse Ox O2 Delivery O2 Flow Rate FiO2 05/11/17 16:38 78 18 130/76 (94) 95 Room Air 05/11/17 14:50 98.4 Orders Orders Lorazepam Inj (Ativan Inj) (05/11/17 16:15) Haloperidol Inj (Haldol Inj) (05/11/17 16:15) [facility] Medical Decision Making Medical Screen Exam Complete: Yes Emergency Medical Condition: Yes Medical Record Reviewed: Yes Differential Diagnosis Alcohol intoxication, alcohol abuse, alcohol dependence, medical clearance Narrative Course 62-year-old female presents under [place] act for alcohol intoxication. Physical exam is unremarkable. Patient has no emergent medical complaints. Patient is being verbally aggressive at times but is easily calmed. She is yelling and cussing intermittently. Patient will be given time to sleep and sober up and will be reevaluated at a later time. 1600: Patient is up ambulating in the hallway and continuing to yell and cuss and be verbally aggressive towards staff and getting in staffs face. I called the patients next of kin and he said he is unable to come pick her up. 1606: Patient continues to be verbally aggressive and threatening. I do not feel the patient is safe for discharge at this time. Patient will be given Haldol and Ativan to calm her and give her time to sober up. Instructed patient to follow up with primary care provider. Patient verbalizes understanding and agreement with treatment plan. Patient is medically cleared and stable for discharge. Discussed reasons to return to the emergency department. Patient agrees with treatment plan. The patients vital signs are stable and the patient is stable for outpatient follow-up and treatment. Patient discharged home, stable and in no acute distress. Diagnosis Primary Impression: Alcohol intoxication Qualified Codes: F10.920 - Alcohol use, unspecified with intoxication, uncomplicated Referrals: [facility] Primary Care Physician Patient Instructions: Alcohol Intoxication (ED), General Instructions Additional Instructions: Stop drinking alcohol Follow-up with primary care provider Follow-up with Duy Velázquez/DAVID Return to the emergency department immediately with worsening of symptoms Med/Other Pt SpecificInfo: No Change to Meds, No Meds Exist/No RX given Disposition: DISCHARGE HOME Condition: Stable Laly Messer May 11, 2017 16:00
[2017-05-11] MEDS ORDERED: HALOPERIDOL LACTATE 5 MG/ML AMP IM ONE (16:15)
[2017-05-11] MEDS ORDERED: LORazepam 2 MG/ML VIAL IM ONE (16:15)
[2017-05-11 16:38] VITALS: BP 130/76; PULSE 78; RESP 18; O2SAT 95
[2017-05-11 20:51] VITALS: PULSE 68; RESP 17; O2SAT 97
== END 2017-05-12 01:14 | disposition home or self-care (01) ==
LOC: NEPD 14:36 → NEDAMB 05-12 01:14
DX: F10.920 Alcohol use, unspecified with intoxication, uncomplicated (principal); J45.909 Unspecified asthma, uncomplicated; E11.9 Type 2 diabetes mellitus without complications; I10 Essential (primary) hypertension; E03.9 Hypothyroidism, unspecified; F17.210 Nicotine dependence, cigarettes, uncomplicated; Z85.72 Personal history of non-Hodgkin lymphomas; Z79.01 Long term (current) use of anticoagulants
CPT/HCPCS: 96372; 99283; J1630; J2060

== ENCOUNTER 2017-07-31 13:04 | Emergency (ER) | payer MEDICAID ==
[~2017-07-31] VITALS: Ht 160 cm; Wt 62.0 kg
[2017-07-31] MEDS ORDERED: TETANUS/DIPHTHERIA TOXOID ADULT 0.5 ML VIAL IM ONE (13:15)
--- NOTE | 2017-07-31 13:21 | PD ---
HPI Chief Complaint: Fall Time Seen by Provider: 13:11 Travel History International Travel<30 days: No Contact w/Intl Traveler<30days: No Traveled to known affect area: No History of Present Illness HPI The patient is a 62-year-old female who presents to the emergency department via EMS after she apparently fell out of a chair while intoxicated. Upon arrival the patient is a somewhat limited historian, does admit to drinking alcohol earlier today. She complains of left-sided facial pain. She is unsure if there is any loss of consciousness during the fall. Last tetanus shot is unknown. EMS did note the patient had a contusion to the left face as well as an abrasion to the left ear. The patient was able to move her upper and lower extremities. She denies any chest pain, shortness breath, nausea, vomiting, or abdominal pain. Symptoms are moderate. PFSH Past Medical History Hx Anticoagulant Therapy: Yes Arthritis: Yes Asthma: Yes Autoimmune Disease: Yes Blood Disorders: No Anxiety: Yes Depression: Yes Heart Rhythm Problems: Yes Cancer: Yes (UTERINE) High Cholesterol: No Chemotherapy: Yes Chest Pain: Yes Congestive Heart Failure: Yes COPD: Yes Cerebrovascular Accident: Yes Diabetes: Yes Diminished Hearing: No Endocrine: Yes (DM) Gastrointestinal Disorders: Yes (see emr) GERD: Yes Glaucoma: No Headaches: Yes Hepatitis: Yes (C, INTERFERON TX) Hiatal Hernia: Yes Heparin Induced Thrombocytopen: No Hypertension: Yes Immune Disorder: Yes (FIBROMYALGIA) Implanted Vascular Access Dvce: No Kidney Stones: No Psychiatric: Yes Respiratory: Yes Integumentary: Yes Myocardial Infarction: Yes Pneumonia: Yes Radiation Therapy: Yes Seizures: Yes Sickle Cell Disease: No Sleep Apnea: No Thyroid Disease: Yes (HYPO) Ulcer: No Past Surgical History Abdominal Surgery: Yes (exploratory x4, BOWEL BLOCKAGE X 4) AICD: No Appendectomy: Yes Arteriovenous Shunt: No Section: Yes (X 3) Cholecystectomy: Yes Genitourinary Surgery: Yes (BLADDER SUSPENSION) Hysterectomy: Yes Insulin Pump: No Joint Replacement: No Oral Surgery: Yes (DENTAL EXTRACTION) Tonsillectomy: Yes Social History Alcohol Use: Yes (12 beers DAILY) Tobacco Use: Yes (1 PPD) Substance Use: Yes Allergies-Medications (Allergen,Severity, Reaction): Coded Allergies: Sulfa (Sulfonamide Antibiotics) (Verified Allergy, Severe, HIVES AND RASH , 07/31/17) diclofenac (Verified Allergy, Severe, HAS ULCERS, 07/31/17) etodolac (Verified Allergy, Severe, HAS ULCERS, 07/31/17) flurbiprofen (Verified Allergy, Severe, HAS ULCERS, 07/31/17) ibuprofen (Verified Allergy, Severe, HAS ULCERS, 07/31/17) indomethacin (Verified Allergy, Severe, HAS ULCERS, 07/31/17) iodine (Verified Allergy, Severe, Swelling, 07/31/17) ketoprofen (Verified Allergy, Severe, HAS ULCERS, 07/31/17) ketorolac (Verified Allergy, Severe, HAS ULCERS, 07/31/17) naproxen (Verified Allergy, Severe, HAS ULCERS, 07/31/17) oxaprozin (Verified Allergy, Severe, HAS ULCERS, 07/31/17) potassium iodide (Verified Allergy, Severe, Swelling, 07/31/17) povidone-iodine (Verified Allergy, Severe, Swelling, 07/31/17) sodium iodide (Verified Allergy, Severe, Swelling, 07/31/17) sodium iodide (Verified Allergy, Severe, Swelling, 07/31/17) acetaminophen (Verified Adverse Reaction, Unknown, STATES REFUSES DUE TO HEP C, 07/31/17) Reported Meds & Prescriptions Reported Meds & Active Scripts Active Remeron (Mirtazapine) 30 Mg Tab 30 Mg PO HS Acidophilus/l-Sporogenes (Lactobacillus Acidophilus) 35 Million Cell-25 Million Cell Tab 1 Tab PO TID Xarelto (Rivaroxaban) 20 Mg Tab 20 Mg PO DAILY Lyrica (Pregabalin) 25 Mg Cap 25 Mg PO TID Potassium Chloride ER (Potassium Chloride) 20 Meq Tab 20 Meq PO DAILY Protonix (Pantoprazole Sodium) 40 Mg Tab 40 Mg PO DAILY Metformin (Metformin HCl) 1,000 Mg Tab 1,000 Mg PO DAILY With a meal Lisinopril 20 Mg Tab 20 Mg PO DAILY Lasix (Furosemide) 40 Mg Tab 40 Mg PO DAILY Qvar Inh (Beclomethasone Dipropionate) 80 Mcg/Act Aero 2 Puff INH BID Albuterol Neb (Albuterol Sulfate) 2.5 Mg/3 Ml Neb 2.5 Mg NEB Q4HR NEB PRN While awake Nitroglycerin SL (Nitroglycerin) 0.4 Mg Subl 0.4 Mg SL DIRECTED PRN ONE TABLET UNDER THE TONGUE NEEDED FOR CHEST PAIN, MAY REPEAT EVERY FIVE MINUTES FOR A TOTAL OF 3 DOSES OR CALL 911 IF NO RELIEF Ascorbic Acid 500 Mg Tab 500 Mg PO BID Walker/Adult/Folding (Device) 1 Mis Mis 1 Ea .ROUTE DIRECTED Novolin R Inj (Insulin Human Regular) 1,000 Unit/10 Ml Vial 0 SQ DIRECTED Sliding Scale As Directed. Review of Systems Except as stated in HPI: all other systems reviewed are Neg Eyes: No: Blurred Vision HENT: Positive: Headaches, Other (Left-sided facial pain), No: Neck Pain Cardiovascular: No: Chest Pain or Discomfort Respiratory: No: Shortness of Breath Gastrointestinal: No: Nausea, Vomiting, Abdominal Pain Musculoskeletal: No: Weakness Neurologic: No: Headache, Change in Mentation Psychiatric: Positive: Substance Abuse (Alcohol use) Physical Exam Narrative GENERAL: Awake, alert, 62-year-old female who appears her stated age and is in no acute respiratory distress. Initially evaluated on a backboard with cervical collar in place. SKIN: Contusion and swelling noted over the left maxilla as well as an abrasion to the left ear. HEAD: Contusion and swelling over the left maxilla. Abrasion to the left ear. EYES: Pupils equal and round. 3 mm bilateral and reactive. ENT: No nasal bleeding or discharge. Poor dentition with very few teeth left. Cervical collar in place. Smell of alcohol on the patient's breath. NECK: Trachea midline. No JVD. CARDIOVASCULAR: Regular rate and rhythm. No murmur appreciated. RESPIRATORY: No accessory muscle use. Clear to auscultation. Breath sounds equal bilaterally. GASTROINTESTINAL: Abdomen soft, non-tender, nondistended. No rebound tenderness. MUSCULOSKELETAL: Superficial abrasion lateral aspect of the left knee. The patient is able flex the hips and knees bilaterally. NEUROLOGICAL: Awake and alert. No obvious cranial nerve deficits. Motor grossly within normal limits. Normal speech. Nonfocal. PSYCHIATRIC: Appears intoxicated. Data Data Last Documented VS Vital Signs Date Time Temp Pulse Resp B/P (MAP) Pulse Ox O2 Delivery O2 Flow Rate FiO2 07/31/17 13:33 97.9 81 20 144/67 (92) 96 Orders Orders Basic Metabolic Panel (Bmp) (07/31/17 13:14) Alcohol (Ethanol) (07/31/17 13:14) Ct Brain W/O Iv Contrast(Rout) (07/31/17 ) Ct Cerv Spine W/O Contrast (07/31/17 ) Ct Facial Bones W/O Iv Cont (07/31/17 ) Tetanus/Diphtheria Tox Adult (Tetanus/Di (07/31/17 13:15) Labs Laboratory Tests Test 07/31/17 13:30 Blood Urea Nitrogen 8 MG/DL Creatinine 0.72 MG/DL Random Glucose 96 MG/DL Calcium Level 8.5 MG/DL Sodium Level 137 MEQ/L Potassium Level 3.5 MEQ/L Chloride Level 104 MEQ/L Carbon Dioxide Level 23.0 MEQ/L Anion Gap 10 MEQ/L Estimat Glomerular Filtration Rate 82 ML/MIN Ethyl Alcohol Level 307 MG/DL [facility] Medical Decision Making Medical Screen Exam Complete: Yes Emergency Medical Condition: Yes Medical Record Reviewed: Yes Interpretation(s) Laboratory Tests Test 07/31/17 13:30 Blood Urea Nitrogen 8 MG/DL Creatinine 0.72 MG/DL Random Glucose 96 MG/DL Calcium Level 8.5 MG/DL Sodium Level 137 MEQ/L Potassium Level 3.5 MEQ/L Chloride Level 104 MEQ/L Carbon Dioxide Level 23.0 MEQ/L Anion Gap 10 MEQ/L Estimat Glomerular Filtration Rate 82 ML/MIN Ethyl Alcohol Level 307 MG/DL Last Impressions Maxillofacial CT 07/31/17 0000 Signed Impressions: Service Date/Time: Monday, July 31, 2017 14:05 - CONCLUSION: 1. Soft tissue swelling over the left orbit. 2. No acute bony fractures. Alfonso Aranda MD Head CT 07/31/17 0000 Signed Impressions: Service Date/Time: Monday, July 31, 2017 14:05 - CONCLUSION: Normal examination for a patient of this age. No significant change has occurred. Alfonso Aranda MD Cervical Spine CT 07/31/17 0000 Signed Impressions: Service Date/Time: Monday, July 31, 2017 14:05 - CONCLUSION: Stable CT Cervical Spine compared to the prior study. Alfonso Aranda MD Differential Diagnosis Differential diagnosis includes alcohol intoxication, closed head injury, intracranial hemorrhage, facial fracture, cervical fracture, hyponatremia. Narrative Course CT of the brain, facial bones, cervical spine was ordered. Alcohol level and BMP were sent to lab. BMP is unremarkable. Alcohol level is elevated at 307. CT of the brain is negative. Diagnosis Primary Impression: Alcohol intoxication Qualified Codes: F10.920 - Alcohol use, unspecified with intoxication, uncomplicated Additional Impressions: Closed head injury Qualified Codes: S09.90XA - Unspecified injury of head, initial encounter Facial contusion Qualified Codes: S00.83XA - Contusion of other part of head, initial encounter Ear abrasion Qualified Codes: S00.412A - Abrasion of left ear, initial encounter Patient Instructions: General Instructions Additional Instructions: Decrease alcohol intake. Wound care instructions. Please provide the patient a copy of her CT results and lab results at discharge. Follow-up with your primary physician. Ride home. Disposition: DISCHARGE HOME Condition: Stable Troy Kramer MD July 31, 2017 13:20
[2017-07-31 13:33] VITALS: BP 144/67; PULSE 81; RESP 20; TEMP 97.9; O2SAT 96
--- NOTE | 2017-07-31 14:17 | RADRPT ---
EXAM DATE/TIME: 07/31/2017 14:05 [facility] COMPARISON: CT BRAIN W/O CONTRAST, January 15, 2017, 19:25. INDICATIONS : TRauma, patient fell, hitting head. RADIATION DOSE: 46.08 CTDIvol (mGy) MEDICAL HISTORY : Cerebrovascular disease. Cardiovascular disease Seizures.diabetic SURGICAL HISTORY : Pacemaker. Hysterectomy. ENCOUNTER: Initial ACUITY: 1 day PAIN SCALE: 5/10 LOCATION: cranial TECHNIQUE: Multiple contiguous axial images were obtained of the head. Using automated exposure control and adj ustment of the mA and/or kV according to patient size, radiation dose was kept as low as reasonably a chievable to obtain optimal diagnostic quality images. DICOM format image data is available electro nically for review and comparison. FINDINGS: CEREBRUM: The ventricles are normal for age. No evidence of midline shift, mass lesion, hemorrhage or acute in farction. No extra-axial fluid collections are seen. POSTERIOR FOSSA: The cerebellum and brainstem are intact. The 4th ventricle is midline. The cerebellopontine angle i s unremarkable. EXTRACRANIAL: The visualized portion of the orbits is intact. SKULL: The calvaria is intact. No evidence of skull fracture. CONCLUSION: Normal examination for a patient of this age. No significant change has occurred. Alfonso Aranda MD on July 31, 2017 at 14:14 Board Certified Radiologist. This report was verified electronically.
[2017-07-31 14:23] LABS: CALCIUM 8.5 MG/DL (8.5-10.1); CREATININE 0.72 MG/DL (0.50-1.00)
--- NOTE | 2017-07-31 15:02 | RADRPT ---
EXAM DATE/TIME: 07/31/2017 14:05 [facility] COMPARISON: CT CERVICAL SPINE W/O CONTRAST, January 15, 2017, 19:25. INDICATIONS : Trauma, patient fell hit head. RADIATION DOSE: 31.52 CTDIvol (mGy) MEDICAL HISTORY : Cerebrovascular disease. Cardiovascular disease Seizures.diabetic SURGICAL HISTORY : Pacemaker. Hysterectomy. ENCOUNTER: Initial ACUITY: 1 day PAIN SCALE: 5/10 LOCATION: neck TECHNIQUE: Volumetric scanning of the cervical spine was performed. Multiplanar reconstructions in the sagittal, coronal and oblique axial planes were performed. Using automated exposure control and adjustment o f the mA and/or kV according to patient size, radiation dose was kept as low as reasonably achievable to obtain optimal diagnostic quality images. DICOM format image data is available electronically f or review and comparison. FINDINGS: Today's exam is compared to the prior study of 01/15/2017. There's been no new or significant changes with the overall appearance of the cervical spine. No acute bony fractures. There continues to be de generative changes involving the cervical spine with disc space narrowing at multiple levels includin g C3-4, C4-5 and C5-6. No spondylolisthesis. CONCLUSION: Stable CT Cervical Spine compared to the prior study. Alfonso Aranda MD on July 31, 2017 at 14:57 Board Certified Radiologist. This report was verified electronically.
--- NOTE | 2017-07-31 15:05 | RADRPT ---
EXAM DATE/TIME: 07/31/2017 14:05 [facility] COMPARISON: No previous studies available for comparison. INDICATIONS : Trauma, abrasion left side of face. RADIATION DOSE: 55.35 CTDIvol (mGy) MEDICAL HISTORY : Cerebrovascular disease. Cardiovascular disease Seizures.diabetic SURGICAL HISTORY : Pacemaker. Hysterectomy. ENCOUNTER: Initial ACUITY: 1 day PAIN SCORE: 5/10 LOCATION: facial TECHNIQUE: Volumetric scanning of the facial bones was performed. Using automated exposure control and adjustme nt of the mA and/or kV according to patient size, radiation dose was kept as low as reasonably achiev able to obtain optimal diagnostic quality images. DICOM format image data is available electronicall y for review and comparison. FINDINGS: ORBITS: The orbital and infraorbital osseous structures are intact. The retroconal structures have a normal configuration. No radiopaque foreign bodies are seen. There is soft tissue swelling overlying the le ft orbit. NASAL BONE: The nasal bone and maxillary spine are intact ZYGOMATIC ARCHES: Symmetric without evidence of fracture. SINUSES: The maxillary, ethmoid and frontal sinuses are intact. No air-fluid levels seen. NASAL CAVITY: Mild nasal septal deviation to the left. SOFT TISSUES: Soft-tissue swelling over left orbit. INTRACRANIAL: No intracranial air seen. CRIBIFORM PLATE: Grossly intact. CONCLUSION: 1. Soft tissue swelling over the left orbit. 2. No acute bony fractures. Alfonso Aranda MD on July 31, 2017 at 15:00 Board Certified Radiologist. This report was verified electronically.
[2017-07-31] MEDS ORDERED: IBUPROFEN 600 MG TAB PO ONE (18:45)
[2017-07-31 19:29] VITALS: BP 135/69; PULSE 85; RESP 18; O2SAT 97
[2017-07-31] MEDS ORDERED: methylPREDNISolone SOD SUCC 125 MG/2 ML VIAL IM ONE (19:45)
--- NOTE | 2017-07-31 19:55 | PD ---
Physical Exam Date Seen by Provider: July 31, 2017 Time Seen by Provider: 19:53 Narrative For full history and physical examination please see previous providers note. Patient was a sleep it off in the emergency department, she was medically cleared by previous provider. She then woke up complaining of feeling short of breath. She has a history of COPD but does not use any inhalers. Symptoms seem to have started when she was about to be discharged from the hospital. Data Data Last Documented VS Vital Signs Date Time Temp Pulse Resp B/P (MAP) Pulse Ox O2 Delivery O2 Flow Rate FiO2 07/31/17 19:29 85 18 135/69 (91) 97 Room Air 07/31/17 13:33 97.9 Orders Orders Basic Metabolic Panel (Bmp) (07/31/17 13:14) Alcohol (Ethanol) (07/31/17 13:14) Ct Brain W/O Iv Contrast(Rout) (07/31/17 ) Ct Cerv Spine W/O Contrast (07/31/17 ) Ct Facial Bones W/O Iv Cont (07/31/17 ) Tetanus/Diphtheria Tox Adult (Tetanus/Di (07/31/17 13:15) Ibuprofen (Motrin) (07/31/17 18:45) Oximetry (07/31/17 19:37) Chest, Single Ap (07/31/17 19:37) Methylprednisolone So Succ Inj (Solumedr (07/31/17 19:45) Albuterol-Ipratropium Neb (Duoneb Neb) (07/31/17 19:45) Labs Laboratory Tests Test 07/31/17 13:30 Blood Urea Nitrogen 8 MG/DL Creatinine 0.72 MG/DL Random Glucose 96 MG/DL Calcium Level 8.5 MG/DL Sodium Level 137 MEQ/L Potassium Level 3.5 MEQ/L Chloride Level 104 MEQ/L Carbon Dioxide Level 23.0 MEQ/L Anion Gap 10 MEQ/L Estimat Glomerular Filtration Rate 82 ML/MIN Ethyl Alcohol Level 307 MG/DL [facility] Medical Record Reviewed: Yes Supervised Visit with LINDA: No Interpretation(s) Vital Signs Date Time Temp Pulse Resp B/P (MAP) Pulse Ox O2 Delivery O2 Flow Rate FiO2 07/31/17 19:29 85 18 135/69 (91) 97 Room Air 07/31/17 19:29 97 Room Air 07/31/17 13:33 97.9 81 20 144/67 (92) 96 Laboratory Tests Test 07/31/17 13:30 Blood Urea Nitrogen 8 MG/DL Creatinine 0.72 MG/DL Random Glucose 96 MG/DL Calcium Level 8.5 MG/DL Sodium Level 137 MEQ/L Potassium Level 3.5 MEQ/L Chloride Level 104 MEQ/L Carbon Dioxide Level 23.0 MEQ/L Anion Gap 10 MEQ/L Estimat Glomerular Filtration Rate 82 ML/MIN Ethyl Alcohol Level 307 MG/DL Vital Signs Date Time Temp Pulse Resp B/P (MAP) Pulse Ox O2 Delivery O2 Flow Rate FiO2 07/31/17 19:29 85 18 135/69 (91) 97 Room Air 07/31/17 19:29 97 Room Air 07/31/17 13:33 97.9 81 20 144/67 (92) 96 Differential Diagnosis COPD exacerbation versus bronchitis versus pneumonia versus malingering versus other Narrative Course Patient is a 62-year-old female initially seen and evaluated by previous provider. She is medically cleared and was sleeping off a blood alcohol level of 307. She awoke complaining of feeling short of breath. Chest x-ray and duo nebs as well as Solu-Medrol IM ordered. On exam patient has coarse breath sounds bilaterally. No wheezes noted. Chest x-ray shows no acute disease, cardiomegaly noted. Lung sounds improved after administration of DuoNeb's. Patient will be given refills of Qvar and albuterol nebulizers. She is advised to follow-up with her primary doctor. She was educated on the [place] [facility] because she states she can get to [place] to see her primary doctor. Case management has arranged a taxi voucher to bring patient home. Patient was given a dose of Librium prior to discharge. Patient stable for discharge. Diagnosis Primary Impression: Alcohol intoxication Qualified Codes: F10.920 - Alcohol use, unspecified with intoxication, uncomplicated Additional Impressions: Ear abrasion Qualified Codes: S00.412A - Abrasion of left ear, initial encounter Closed head injury Qualified Codes: S09.90XA - Unspecified injury of head, initial encounter Facial contusion Qualified Codes: S00.83XA - Contusion of other part of head, initial encounter COPD (chronic obstructive pulmonary disease) Qualified Codes: J44.9 - Chronic obstructive pulmonary disease, unspecified Patient Instructions: General Instructions Additional Instruction: Decrease alcohol intake. Wound care instructions. Please provide the patient a copy of her CT results and lab results at discharge. Follow-up with your primary physician. Ride home. Med/Other Pt SpecificInfo: Prescription(s) given Scripts Beclomethasone Inh (Qvar Inh) 80 Mcg/Act Aero 2 PUFF INH BID for Asthma Management, #1 INHALER 0 Refills Prov: Arleen Sinha 07/31/17 Albuterol Neb (Albuterol Neb) 2.5 Mg/3 Ml Neb 2.5 MG NEB Q4HR NEB Y for SHORTNESS OF BREATH, #60 NEBULE 0 Refills While awake Prov: Arleen Sinha 07/31/17 Disposition: 01 DISCHARGE HOME Condition: Stable Arleen Sinha July 31, 2017 19:55
--- NOTE | 2017-07-31 19:59 | RADRPT ---
EXAM DATE/TIME: 07/31/2017 19:43 [facility] COMPARISON: CHEST SINGLE AP, April 14, 2017, 5:06. INDICATIONS : Short of breath. MEDICAL HISTORY : Chronic obstructive pulmonary disease. Congestive heart failure. asthma. SURGICAL HISTORY : None. ENCOUNTER: Initial ACUITY: 1 day PAIN SCORE: 0/10 LOCATION: Bilateral chest FINDINGS: A single view of the chest demonstrates the lungs to be symmetrically aerated without evidence of mas s, infiltrate or effusion. Cardiomegaly. The cardiomediastinal contours are unremarkable. Old left-s ided rib fractures. CONCLUSION: No acute disease. Cardiomegaly. [place] Jo MD on July 31, 2017 at 19:57 Board Certified Radiologist. This report was verified electronically.
[2017-07-31] MEDS: RESP: ALBUTEROL 2.5 MG/IPRATROPIUM 0.5 MG NEB (SCH) INH ×2 (20:14→20:15)
[2017-07-31] MEDS ORDERED: ALBU0.08 NEB (20:40)
[2017-07-31] MEDS ORDERED: BECL80AE3 INH (20:40)
[2017-07-31] MEDS ORDERED: chlordiazePOXIDE 25 MG CAP PO ONE (21:00)
== END 2017-07-31 21:44 | disposition home or self-care (01) ==
LOC: NEPD 13:04
DX: F10.129 Alcohol abuse with intoxication, unspecified (principal); S00.412A Abrasion of left ear, initial encounter; S00.83XA Contusion of other part of head, initial encounter; J44.9 Chronic obstructive pulmonary disease, unspecified; F17.200 Nicotine dependence, unspecified, uncomplicated; E11.9 Type 2 diabetes mellitus without complications; W07.XXXA Fall from chair, initial encounter; Y90.8 Blood alcohol level of 240 mg/100 ml or more; Z79.4 Long term (current) use of insulin; Z79.899 Other long term (current) drug therapy
CPT/HCPCS: 70450; 70486; 71045; 72125; 80048; 80307; 94640; 94664; 96372; 99284; J2930

== ENCOUNTER 2018-03-07 06:21 | Inpatient (IN) ==
--- NOTE | 2018-03-07 07:29 | ED ---
HPI General Chief complaint: Chest Pain Stated complaint: Chest Pain Time Seen by Provider: 03/07/18 06:53 Source: patient Limitations: no limitations History of Present Illness HPI narrative: Patient is a 62-year-old female with history of asthma, COPD, hypertension, history of alcohol abuse, coronary artery disease, presents to emergency room with multiple complaints. Patient reports that for the past few days, she has been nauseous and has been vomiting, reports that she is unable to keep anything down. In addition to this, patient also reports that she has been falling. Patient reports that she is an alcoholic, she has not drink for - she does not know how many days. Overall, patient is a poor historian. Patient reports that she was just seen at [facility] and was discharged, reports that she was seen there because she was having problems with her high blood pressure. Reports that she thinks that she was also being seen as she has been nauseous and has been vomiting. Patient thinks that she is in alcohol withdrawal and is currently requesting ativan. Patient is a poor historian, patient is unable to provide me in HPI and is unable to tell me the reason why she is in the emergency room. Patient also complains that she has been having chest pain, reports that she has had a productive cough, reports no fever or chills. Patient thinks that she is a smoker, she is vague with all of her comments. Patient is unsure of how much she drinks per day Related Data Home Medications Medication Instructions Recorded Confirmed No Known Home Medications 03/02/18 03/07/18 Allergies Allergy/AdvReac Type Severity Reaction Status Date / Time diclofenac Allergy Severe HAS ULCERS Verified 03/02/18 08:36 etodolac Allergy Severe HAS ULCERS Verified 03/02/18 08:36 flurbiprofen Allergy Severe HAS ULCERS Verified 03/02/18 08:36 indomethacin Allergy Severe HAS ULCERS Verified 03/02/18 08:36 iodine Allergy Severe Swelling Verified 03/02/18 08:36 ketoprofen Allergy Severe Hives Verified 03/02/18 08:36 ketorolac Allergy Severe Hives Verified 03/02/18 08:36 naproxen Allergy Severe Hives Verified 03/02/18 08:36 oxaprozin Allergy Severe Hives Verified 03/02/18 08:36 potassium iodide Allergy Severe Hives Verified 03/02/18 08:36 povidone-iodine Allergy Severe Swelling Verified 07/31/17 13:30 sodium iodide Allergy Severe Swelling Verified 07/31/17 13:30 sodium iodide Allergy Severe Swelling Verified 07/31/17 13:30 Sulfa (Sulfonamide Allergy Severe HIVES AND Verified 07/31/17 13:30 Antibiotics) RASH acetaminophen AdvReac Intermediate Hives Verified 03/02/18 08:36 Review of Systems ROS: all other systems reviewed are negative [facility] Medical History Medical History Asthma (Acute) COPD (chronic obstructive pulmonary disease) (Acute) HBP (high blood pressure) (Acute) History of hysterectomy (Acute) Smoker (Acute) Surgical History Surgical History Hx of cholecystectomy (Acute) Social History Social History Substance History: No History of Abuse Second Hand Smoke Exposure: Yes Smoking Status: Current every day smoker Tobacco Type: Cigarettes How Often Do You Have a Drink Containing Alcohol: Monthly or less Recent Travel in [facility] within the Last 8 Weeks: No Recent Out of Country Travel within the Last 8 Weeks: No Immunization History Tetanus Immunization: Unsure Exam Narrative Exam Narrative: GENERAL: Moderate distress SKIN: Focused skin assessment warm/dry. HEAD: Atraumatic. Normocephalic. EYES: Pupils equal and round. No scleral icterus. No injection or drainage. ENT: No nasal bleeding or discharge. Mucous membranes pink and moist. NECK: Trachea midline. No JVD. CARDIOVASCULAR:Tachcyardic. No murmur appreciated. RESPIRATORY: No accessory muscle use. Scattered wheezing. GASTROINTESTINAL: Abdomen soft, non-tender, nondistended. Hepatic and splenic margins not palpable. MUSCULOSKELETAL: No obvious deformities. No clubbing. No cyanosis. No edema. NEUROLOGICAL: Awake and alert. No obvious cranial nerve deficits. Motor grossly within normal limits. Normal speech. PSYCHIATRIC: Anxious mood and affect; insight and judgment normal. Course Initial Documented Vital Signs Temperature 97.8 F 03/07/18 06:27 Respiratory Rate 24 03/07/18 06:27 Blood Pressure 226/107 H 03/07/18 06:27 Pulse Oximetry 96 03/07/18 06:27 Last Documented Vital Signs Temperature 98.7 F 03/07/18 07:53 Pulse Rate 110 H 03/07/18 09:55 Respiratory Rate 24 03/07/18 07:53 Blood Pressure 226/92 H 03/07/18 09:55 Pulse Oximetry 100 03/07/18 09:05 Medical Decision Making MDM Narrative Medical decision making narrative: During the course of the patients emergency department visit, the patients history, examination, and differential diagnosis were reviewed with the patient. The patient was placed on a bus driver/monitor with oximetry and frequent blood pressure monitoring. The patient had an IV access obtained and blood work sent for analysis. Patient with a vague HPI, patient cannot tell me why she is here, as she has a multitude of complaints. Patient is tachycardic, she is taking at bedside, patient tells me that she is alcoholic and cannot remember when she had her last drink. I do believe that patient is having symptoms from alcohol withdrawal. Plan to obtain an IV access, will obtain blood work and administer IV Ativan. In reviewing patient's chart from [facility], patient was there for nausea and vomiting, she was discharged home with a prescription from [facility]. Multiple attempts were made from nursing as well as myself to place an IV line, we are unable to obtain access. I will administer IM Ativan for her withdrawal symptoms, I did place an order for the PICC team to assist with a line placement. The patient was initially provided IV fluids as well as Ativan. The patients laboratory studies were reviewed Patient continues to be tachycardic and hypertensive, patient with most likely alcohol withdrawal with uncontrolled hypertension. Patient was admitted to [facility] resident [facility] for further workup Medical Screen Exam Complete: Yes Emergency Medical Condition: Yes Lab Data Result diagrams: 03/07/18 08:45 03/07/18 09:14 Lab Results 03/07/18 03/07/18 03/07/18 Range/Units 07:59 07:59 08:45 WBC 9.2 (4.0-11.0) th/mm3 RBC 4.74 (4.00-5.30) mil/mm3 Hgb 14.5 (11.6-15.3) gm/dL Hct 42.8 (35.0-46.0) % MCV 90.3 (80.0-100.0) fL MCH 30.5 (27.0-34.0) pg MCHC 33.8 (32.0-36.0) % RDW 15.7 (11.6-17.2) % Plt Count 180 (150-450) th/mm3 MPV 7.9 (7.0-11.0) fL Neut % (Auto) 91.1 H (16.0-70.0) % Lymph % (Auto) 3.7 L (9.0-44.0) % [place] % (Auto) 4.4 (0.0-8.0) % Eos % (Auto) 0.0 (0.0-4.0) % Baso % (Auto) 0.8 (0.0-2.0) % Neut # (Auto) 8.4 H (1.8-7.7) th/mm3 Lymph # (Auto) 0.3 L (1.0-4.8) th/mm3 [place] # (Auto) 0.4 (0.0-0.9) th/mm3 Eos # (Auto) 0.0 (0.0-0.4) th/mm3 Baso # (Auto) 0.1 (0.0-0.2) th/mm3 WBC Differential . Differential Comment Auto diff final PT (9.8-11.6) sec INR Ratio APTT (23.4-31.7) sec Sodium (136-145) meq/L Potassium (3.5-5.1) meq/L Chloride (98-107) meq/L Carbon Dioxide (21.0-32.0) meq/L Anion Gap (5-15) meq/L BUN (7-18) mg/dL Creatinine (0.50-1.00) mg/dL Estimated GFR (>89) mL/min Random Glucose (74-106) mg/dL Calcium (8.5-10.1) mg/dL Magnesium (1.5-2.5) mg/dL Total Bilirubin (0.2-1.0) mg/dL AST (15-37) U/L ALT (10-53) U/L Alkaline Phosphatase (45-117) U/L Total Creatine Kinase (26-192) U/L CK-MB (CK-2) (0.5-3.6) ng/mL Troponin I (0.02-0.05) ng/mL B-Natriuretic Peptide (0-100) pg/mL Total Protein (6.4-8.2) g/dL Albumin (3.4-5.0) g/dL Lipase (73-393) U/L Urine Color [place] (Yellw/Straw) Urine Clarity Hazy H (Clear) Urine pH 5.0 (5.0-8.5) Ur Specific [place] 1.023 (1.002-1.035) Urine Protein 100 H (Neg-Trace) mg/dL Urine Glucose (UA) Negative (Negative) mg/dL Urine Ketones 80 or greater H (Negative) mg/dL Urine Occult Blood Small H (Negative) Urine Nitrate Positive H (Negative) Urine Bilirubin Negative (Negative) Urine Urobilinogen 1.0 (Less than 2) mg/dL Ur Leukocyte Esterase Trace H (Negative) Urine RBC 8 H (0-3) /hpf Urine WBC 13 H (0-5) /hpf Ur Squamous Epith Cells 5 (0-5) /hpf Urine Bacteria Moderate H (None) /hpf Urine Mucus Few H (Occasional) /lpf Micro UA Comment Culture indicated Ur Microscopic Review Not Reportable Urine Culture Comments Culture indicated Urine Opiates Screen Neg (Neg) Ur Barbiturates Screen Neg (Neg) Ur Amphetamines Screen Neg (Neg) U Benzodiazepines Scrn Neg (Neg) Urine Cocaine Screen Neg (Neg) U Cannabinoids Screen Neg (Neg) Serum Alcohol (0-5) mg/dL 03/07/18 03/07/18 03/07/18 Range/Units 08:45 08:45 09:14 WBC (4.0-11.0) th/mm3 RBC (4.00-5.30) mil/mm3 Hgb (11.6-15.3) gm/dL Hct (35.0-46.0) % MCV (80.0-100.0) fL MCH (27.0-34.0) pg MCHC (32.0-36.0) % RDW (11.6-17.2) % Plt Count (150-450) th/mm3 MPV (7.0-11.0) fL Neut % (Auto) (16.0-70.0) % Lymph % (Auto) (9.0-44.0) % [place] % (Auto) (0.0-8.0) % Eos % (Auto) (0.0-4.0) % Baso % (Auto) (0.0-2.0) % Neut # (Auto) (1.8-7.7) th/mm3 Lymph # (Auto) (1.0-4.8) th/mm3 [place] # (Auto) (0.0-0.9) th/mm3 Eos # (Auto) (0.0-0.4) th/mm3 Baso # (Auto) (0.0-0.2) th/mm3 WBC Differential Differential Comment PT 11.0 (9.8-11.6) sec INR 1.1 Ratio APTT 23.8 (23.4-31.7) sec Sodium 139 (136-145) meq/L Potassium 3.9 (3.5-5.1) meq/L Chloride 104 (98-107) meq/L Carbon Dioxide 26.8 (21.0-32.0) meq/L Anion Gap 8 (5-15) meq/L BUN 16 (7-18) mg/dL Creatinine 0.86 (0.50-1.00) mg/dL Estimated GFR 67 L (>89) mL/min Random Glucose 131 H (74-106) mg/dL Calcium 8.2 L (8.5-10.1) mg/dL Magnesium 1.5 (1.5-2.5) mg/dL Total Bilirubin 1.5 H (0.2-1.0) mg/dL AST 87 H (15-37) U/L ALT 93 H (10-53) U/L Alkaline Phosphatase 141 H (45-117) U/L Total Creatine Kinase 130 (26-192) U/L CK-MB (CK-2) 2.7 (0.5-3.6) ng/mL Troponin I 0.02 (0.02-0.05) ng/mL B-Natriuretic Peptide 74 (0-100) pg/mL Total Protein 8.1 (6.4-8.2) g/dL Albumin 3.5 (3.4-5.0) g/dL Lipase 165 (73-393) U/L Urine Color (Yellw/Straw) Urine Clarity (Clear) Urine pH (5.0-8.5) Ur Specific [place] (1.002-1.035) Urine Protein (Neg-Trace) mg/dL Urine Glucose (UA) (Negative) mg/dL Urine Ketones (Negative) mg/dL Urine Occult Blood (Negative) Urine Nitrate (Negative) Urine Bilirubin (Negative) Urine Urobilinogen (Less than 2) mg/dL Ur Leukocyte Esterase (Negative) Urine RBC (0-3) /hpf Urine WBC (0-5) /hpf Ur Squamous Epith Cells (0-5) /hpf Urine Bacteria (None) /hpf Urine Mucus (Occasional) /lpf Micro UA Comment Ur Microscopic Review Urine Culture Comments Urine Opiates Screen (Neg) Ur Barbiturates Screen (Neg) Ur Amphetamines Screen (Neg) U Benzodiazepines Scrn (Neg) Urine Cocaine Screen (Neg) U Cannabinoids Screen (Neg) Serum Alcohol Less than 3 (0-5) mg/dL Imaging Data Radiologist's impression: Chest X-Ray 03/07/18 07:04 CONCLUSION: No acute cardiopulmonary abnormality is identified. Discharge Plan Discharge Disposition Patient Disposition: ED Admit(ED Internal Use Only) Discharge Condition Condition: Stable Discharge Order Discharge Orders: ED Use Only Admit Order (Routine); Ordered 03/07/18 Ordered By: Ani Boo Discharge Details Diagnosis: Alcohol withdrawal, Hypertensive urgency Physicians Team ED Provider: Ani Boo Primary Care Provider: UNKNOWN, Attending Provider: Jami Beckford Discharge Interventions Interventions: Vital Signs Last Done: 03/07/18 09:55 Status ED Status: Admitted Observation Patient
--- NOTE | 2018-03-07 07:56 | XR ---
EXAM DATE: 03/07/2018 7:53 AM EST AGE/SEX: 62 years / Female INDICATIONS: Chest pain and cough. CLINICAL DATA: This is the patient's initial encounter. Patient reports that signs and symptoms have been present for 3 days and indicates a pain score of 5/10. MEDICAL/SURGICAL HISTORY: . Hypertension. Diabetes mellitus type II. Chronic obstructive pulmon fan disease. Asthma. None. COMPARISON: [facility] [place], CHEST 1V SINGLE AP, 03/02/2018. . FINDINGS: Portable AP view of the chest demonstrates a normal-sized cardiac silhouette. No effusion, consolidat ion, or pneumothorax is identified. The bones and soft tissues demonstrate no acute finding. EKG jonah es overlie the patient. CONCLUSION: No acute cardiopulmonary abnormality is identified. Electronically signed by: Jared Healy MD 03/07/2018 7:55 AM EST
[2018-03-07 08:30] LABS: Amphetamine Screen,Urine Neg (Neg); Barbiturate Screen,Urine Neg (Neg); Cannabinoid Screen,Urine Neg (Neg); Cocaine Screen,Urine Neg (Neg)
[2018-03-07 08:39] LABS: Bacteria,Urine Moderate /hpf; Bilirubin,Urine Negative (Negative); Clarity,Urine Hazy (Clear); Color,Urine Amber (Yellw/Straw); Glucose,Urine (UA) Negative (Negative); Leukocyte Esterase,Urine Trace (Negative); Mucus,Urine Few /lpf (Occasional); Nitrite,Urine Positive (Negative); Specific Gravity,Urine 1.023 (1.002-1.035); Squamous Epithelial Cell,Urine 5 /hpf (0-5)
[2018-03-07 08:44] LABS: Opiate Screen,Urine Neg (Neg)
[2018-03-07 08:57] LABS: Baso # (Auto) 0.1 th/mm3 (0.0-0.2); Baso % (Auto) 0.8 % (0.0-2.0); Hematocrit 42.8 % (35.0-46.0); Hemoglobin 14.5 gm/dL (11.6-15.3); Lymph # (Auto) 0.3 th/mm3 (1.0-4.8); Lymph % (Auto) 3.7 % (9.0-44.0); Mean Corpuscular HGB Conc 33.8 % (32.0-36.0); Mean Corpuscular Hemoglobin 30.5 pg (27.0-34.0); Mean Corpuscular Volume 90.3 fL (80.0-100.0); Mean Platelet Volume 7.9 fL (7.0-11.0); Mono # (Auto) 0.4 th/mm3 (0.0-0.9); Mono % (Auto) 4.4 % (0.0-8.0); Neut # (Auto) 8.4 th/mm3 (1.8-7.7); Neut % (Auto) 91.1 % (16.0-70.0); Platelet Count 180 th/mm3 (150-450); Red Blood Count 4.74 mil/mm3 (4.00-5.30); Red Cell Distribution Width 15.7 % (11.6-17.2); White Blood Count 9.2 th/mm3 (4.0-11.0)
[2018-03-07 09:04] LABS: Activated Partial Thrombo Time 23.8 sec (23.4-31.7); INR 1.1 Ratio
[2018-03-07] MEDS: Sod Chloride 0.9% Inj 1,000 ML IV.SIG SCH (09:18)
[2018-03-07 09:36] LABS: Albumin 3.5 g/dL (3.4-5.0); Anion Gap 8 meq/L (5-15); Aspartate Aminotransferase 87 U/L (15-37); Blood Urea Nitrogen 16 mg/dL (7-18); Calcium 8.2 mg/dL (8.5-10.1); Carbon Dioxide 26.8 meq/L (21.0-32.0); Chloride 104 meq/L (98-107); Glomerular Filtration Rate 67 mL/min (>89); Glucose,Random 131 mg/dL (74-106); Lipase 165 U/L (73-393); Magnesium 1.5 mg/dL (1.5-2.5); Potassium 3.9 meq/L (3.5-5.1); Sodium 139 meq/L (136-145)
[2018-03-07 09:37] LABS: Alanine Aminotransferase 93 U/L (10-53)
[2018-03-07 09:40] LABS: Alkaline Phosphatase 141 U/L (45-117); Creatine Kinase 130 U/L (26-192); Total Protein 8.1 g/dL (6.4-8.2); Troponin I 0.02 ng/mL (0.02-0.05)
[2018-03-07] MEDS ORDERED: hydrALAZINE HCl Inj 20 MG/ML Vial IV.PUSH ONE ×2 (09:47→10:38)
[2018-03-07 10:00] LABS: Creatine Kinase MB 2.7 ng/mL (0.5-3.6)
--- NOTE | 2018-03-07 10:59 | P.HPFP ---
History of Present Illness Primary Care Physician: UNKNOWN <AnalyJami R - 03/08/18 06:54> UNKNOWN <ValeriyBrennan B - 03/07/18 10:59> History of Present Illness: 62 yo F with PMH of COPD, CAD, alcohol abuse, DM HTN presenting to the ED with complaints of falling, chest pain. She states she feels like she "loses her equilibrium" and falls. States she has been doing this for some time. She also complains of n/v. chest pain radiates to her L arm and neck. She is concerned about alcohol withdrawal - last drink was yesterday. Usually drinks 10 double shots of fireball whiskey per day. She endorses history of alcohol withdrawal, seizures in the past. She is a somewhat poor historian and is pyle positive on her ROS No fevers, ROS are plye positive: Reports face pain, headache, vision changes, productive cough, yellow sputum, belly pain, dysuria PMH: HTN, COPD (states she is on 3 L of O2 NC at home), CAD w/ [place] 6 years ago, TIA, DVT 1 year ago, liver disease, DM Meds: Not currently taking any medications, states she was supposed to be on Xarelto, inhalers, lantus and Humulin R SS Surgical history: cholecystectomy, C section, Nasal repair, hysterectomy ( complete) Family Hx: CAD, mother of non-hodgkins lymphoma Social: Lives alone in a hotel room, 5 cig per day, no substance abuse, alcohol as above Would want her brother to be her medical decision maker if she were unable to - Junior Mora [phone] <Brennan Crooks B - 03/07/18 18:24> - Diagnosis (1) Alcohol withdrawal (2) UTI (urinary tract infection) (3) Hypertensive urgency (4) COPD (chronic obstructive pulmonary disease) (5) Tachycardia (6) History of DVT (deep vein thrombosis) (7) Nausea & vomiting (8) Diabetes (9) Nutrition, metabolism, and development symptoms <Jami Beckford R - 03/08/18 06:54> (1) Alcohol withdrawal (2) UTI (urinary tract infection) (3) Hypertensive urgency (4) COPD (chronic obstructive pulmonary disease) (5) Tachycardia (6) History of DVT (deep vein thrombosis) (7) Nausea & vomiting (8) Diabetes (9) Nutrition, metabolism, and development symptoms <Brennan Crooks 03/07/18 18:16> Inpatient Certification: I certify that the inpatient services were ordered in accordance with Medicare regulations governing the order. This includes certification that hospital inpatient services are reasonable and necessary and in the case of services not specified as inpatient-only under 42 CFR 419.22(n), that they are appropriately provided as inpatient services in accordance to with the 2-midnight benchmark under 43 CFR 412.3(e) <OnimingglennJami R 03/08/18 06:54> Review of Systems All other systems reviewed negative except as stated in HPI <CrooksBrennan 03/07/18 17:02> PMFSH - History History Provided By: Patient <Brennan Crooks 03/07/18 10:59> - Medical History Medical History: Medical History (Last Reviewed 03/07/18 @ 13:52 by Rashida Urias) Asthma COPD (chronic obstructive pulmonary disease) HBP (high blood pressure) History of hysterectomy Smoker <Jami Beckford 03/08/18 06:54> Medical History (Last Reviewed 03/07/18 @ 13:52 by Rashida Urias) Asthma COPD (chronic obstructive pulmonary disease) HBP (high blood pressure) History of hysterectomy Smoker <Brennan Crooks 03/07/18 17:02> - Surgical History Surgical History: Surgical History (Last Reviewed 03/07/18 @ 13:52 by Rashida Urias) Hx of cholecystectomy <Jami Beckford 03/08/18 06:54> Surgical History (Last Reviewed 03/07/18 @ 13:52 by Rashida Urias) Hx of cholecystectomy <CrooksBrennan [facility] 03/07/18 17:02> - Tobacco History Second Hand Smoke Exposure: Yes <Brennan Crooks 03/07/18 10:59> Tobacco Use In Past 30 Days: Yes <Brennan Crooks 03/07/18 10:59> Smoking Status: Current every day smoker <Brennan Crooks 03/07/18 10:59> Tobacco Type: Cigarettes <Brennan Crooks 03/07/18 10:59> - Alcohol History How Often Do You Have a Drink Containing Alcohol: Monthly or less <Brennan Crooks - 03/07/18 10:59> - Substance Use History Substance History: No History of Abuse <CrooksBrennan Epstein - 03/07/18 10:59> - Travel History Recent Travel in the [place] Within the Last 8 Weeks: No <Brennan Crooks - 03/07 10:59> Recent Travel Out of the Country Within the Last 8 Weeks: No <Brennan Crooks [place] - 03/07/18 10:59> - Immunization History Tetanus Immunization: Unsure <CrooksBrennan Epstein - 03/07/18 10:59> Medications and Allergies Allergies Allergy/AdvReac Type Severity Reaction Status Date / Time diclofenac Allergy Severe HAS ULCERS Verified 03/02/18 08:36 etodolac Allergy Severe HAS ULCERS Verified 03/02/18 08:36 flurbiprofen Allergy Severe HAS ULCERS Verified 03/02/18 08:36 indomethacin Allergy Severe HAS ULCERS Verified 03/02/18 08:36 iodine Allergy Severe Swelling Verified 03/02/18 08:36 ketoprofen Allergy Severe Hives Verified 03/02/18 08:36 ketorolac Allergy Severe Hives Verified 03/02/18 08:36 naproxen Allergy Severe Hives Verified 03/02/18 08:36 oxaprozin Allergy Severe Hives Verified 03/02/18 08:36 potassium iodide Allergy Severe Hives Verified 03/02/18 08:36 povidone-iodine Allergy Severe Swelling Verified 07/31/17 13:30 sodium iodide Allergy Severe Swelling Verified 07/31/17 13:30 sodium iodide Allergy Severe Swelling Verified 07/31/17 13:30 Sulfa (Sulfonamide Allergy Severe HIVES AND Verified 07/31/17 13:30 Antibiotics) RASH acetaminophen AdvReac Intermediate Hives Verified 03/02/18 08:36 <Jami Beckford - 03/08/18 06:54> Home Medications Medication Instructions Recorded Confirmed Type No Known Home Medications 03/02/18 03/07/18 History <Jami Beckford - 03/08/18 06:54> Active Medications: Active Medications Al Hydroxide/Mg Hydroxide (Milk Of Magnesia Liq) 30 ml PO Q12H PRN PRN Reason: Mild Constipation Albuterol (Ventolin Hfa Inh) 2 puff INH Q4H PRN PRN Reason: SHORTNESS OF BREATH/WHEEZING Albuterol (Duoneb Neb (Ajith)) 1 ampul NEB Q4HR NEB [facility] Last Admin: 03/08/18 03:59 Dose: Not Given Clonidine HCl (Catapres) 0.1 mg PO Q6H PRN PRN Reason: SEE LABEL COMMENTS Dextrose (D50w Vial) 50 ml IV.PUSH UNSCH PRN PRN Reason: PER HYPOGLYCEMIA PROTOCOL Enoxaparin Sodium (Lovenox Inj) 40 mg SQ Q24H [facility] Last Admin: 03/07/18 13:28 Dose: 40 mg Flumazenil (Romazecon Inj) 0.2 mg IV.PUSH Q1M PRN PRN Reason: OVERSEDATION Glucagon (Glucagon Inj) 1 mg OTHER PRN PRN PRN Reason: for Hypoglycemia Protocol Haloperidol Lactate (Haldol Inj) 1 mg IV.PUSH Q15M PRN PRN Reason: for severe agitation Sodium Chloride (Ns Inj) 1,000 mls @ 100 mls/hr IV.CONT .Q10H [facility] Last Admin: 03/08/18 00:58 Dose: Not Given Ceftriaxone Sodium 1,000 mg/ (Sodium Chloride) 100 mls @ 200 mls/hr IV.SIG Q24H [facility] Insulin Aspart (Novolog Insulin Correctional Sugar Inj) 0 unit SQ ACHS [facility]; Protocol Last Admin: 03/07/18 22:07 Dose: Not Given Lisinopril (Prinivil) 10 mg PO DAILY [facility] Last Admin: 03/07/18 13:28 Dose: 10 mg Lorazepam (Ativan) 1 mg PO Q4H PRN PRN Reason: for CIWA 8-10 Lorazepam (Ativan) 2 mg PO Q2H PRN PRN Reason: for CIWA 11-14 Last Admin: 03/07/18 21:02 Dose: 2 mg Lorazepam (Ativan Inj) 2 mg IV.PUSH Q1H PRN PRN Reason: for CIWA 15-20 Last Admin: 03/07/18 15:46 Dose: 2 mg Lorazepam (Ativan Inj) 2 mg IV.PUSH Q15M PRN PRN Reason: for CIWA > 20 Lorazepam (Ativan Inj) 1 mg IV.PUSH Q4H PRN PRN Reason: for CIWA 8-10 Lorazepam (Ativan Inj) 2 mg IV.PUSH Q2H PRN PRN Reason: for CIWA 11-14 Lorazepam (Ativan) 1 mg PO Q6HR [facility] Last Admin: 03/08/18 06:09 Dose: 1 mg Naloxone HCl (Narcan Inj) 0.4 mg IV.PUSH UNSCH PRN PRN Reason: SEE LABEL COMMENTS Ondansetron HCl (Zofran Inj) 4 mg IV.PUSH Q6H PRN PRN Reason: NAUSEA OR VOMITING Senna/Docusate Sodium (Zohreh-Colace) 1 tab PO BID [facility] Last Admin: 03/07/18 21:02 Dose: Not Given Sodium Chloride (Ns Flush) 2 ml IV.FLUSH UNSCH PRN PRN Reason: FLUSH AFTER USING IV ACCESS Sodium Chloride (Ns Flush) 2 ml IV.FLUSH PRN PRN PRN Reason: FLUSH AFTER USING IV ACCESS Sodium Chloride (Ns Flush) 2 ml IV.FLUSH BID [facility] Last Admin: 03/07/18 21:02 Dose: 2 ml <Jami Beckford - 03/08/18 06:54> Active Medications Ceftriaxone Sodium 1,000 mg/ (Sodium Chloride) 100 mls @ 200 mls/hr IV.SIG ONCE ONE Stop: 03/07/18 11:06 Last Admin: 03/07/18 10:51 Dose: 200 mls/hr Sodium Chloride (Ns Flush) 2 ml IV.FLUSH UNSCH PRN PRN Reason: FLUSH AFTER USING IV ACCESS <Brennan Crooks - 03/07/18 10:59> Exam Vital signs: Vital Signs 03/07/18 07:53 03/07/18 09:02 03/07/18 09:05 Temperature 98.7 F Pulse Rate 120 H 109 H Respiratory Rate 24 Blood Pressure 258/127 H Pulse Oximetry 97 100 03/07/18 09:55 03/07/18 12:02 03/07/18 14:27 Temperature 98.3 F Pulse Rate 110 H 134 H 119 H Respiratory Rate 20 20 Blood Pressure 226/92 H 152/67 H 147/71 H Pulse Oximetry 96 95 03/07/18 17:03 03/07/18 20:00 03/07/18 21:06 Temperature 98.3 F 98 F Pulse Rate 123 H 97 H Respiratory Rate 20 20 Blood Pressure 146/85 H 156/70 H Pulse Oximetry 95 98 98 03/08/18 00:00 Temperature 98.2 F Pulse Rate 79 Respiratory Rate 20 Blood Pressure 117/55 L Pulse Oximetry 94 L Intake & Output 03/07/18 03/07/18 03/08/18 06:59 18:59 06:59 Intake Total 2340 / 2340 Balance 234 / 2340 Weight 79.379 kg 71.6 kg Intake: IV 2099 / 2099 NS Inj 1,000 ML @ 2000 mls/hr 1999 IV.SIG Q30M [facility] Rx#:[id number] Rocephin Inj 1,000 MG In NS Inj 100 / 100 100 ML @ 200 mls/hr IV.SIG ONCE ONE Rx#:[id number] Oral 240 / 240 Other: # Voids 2 Date of Last Bowel Movement 03/07/18 <Jami Beckford R - 03/08/18 06:54> Vital Signs 03/07/18 06:27 03/07/18 06:51 03/07/18 07:53 Temperature 97.8 F 98.7 F Pulse Rate 118 H 120 H Respiratory Rate 24 18 24 Blood Pressure 226/107 H 210/104 H 258/127 H Pulse Oximetry 96 93 L 97 03/07/18 09:02 03/07/18 09:05 03/07/18 09:55 Temperature Pulse Rate 109 H 110 H Respiratory Rate Blood Pressure 226/92 H Pulse Oximetry 100 Intake & Output 03/06/18 03/07/18 03/07/18 18:59 06:59 18:59 Intake Total 1999 Balance 1999 Weight 79.379 kg Intake: IV 1999 NS Inj 1,000 ML @ 2000 mls/hr 1999 IV.SIG Q30M [facility] Rx#:[id number] <Brennan Crooks B - 03/07/18 10:59> Narrative: GENERAL: Well-nourished female sitting upright in bed in no acute distress. Answering questions appropriately. SKIN: Warm and dry. HEAD: Atraumatic. Normocephalic. EYES: Pupils equal and round. No scleral icterus. No injection or drainage. ENT: No nasal bleeding or discharge. Mucous membranes pink and moist. NECK: Trachea midline. No JVD. CARDIOVASCULAR: Tachycardic to 120. No murmurs appreciated. RESPIRATORY: No accessory muscle use. Coarse breath sounds bilaterally with occasional wheezes. GASTROINTESTINAL: Abdomen soft, non-tender, nondistended. Hepatic and splenic margins not palpable. MUSCULOSKELETAL: Extremities without clubbing, cyanosis, or edema. No obvious deformities. NEUROLOGICAL: Awake and alert. Cranial nerves II through XII intact. No pronator drift. Motor grossly within normal limits. Five out of 5 muscle strength in the arms and legs. Sensation intact and equal bilaterally. Normal speech. PSYCHIATRIC: Appropriate mood and affect; insight and judgment normal. <Brennan Crooks B - 03/07/18 18:07> Results - Labs Result diagrams: 03/07/18 08:45 03/07/18 09:14 <aJmi Beckford R - 03/08/18 06:54> Abnormal lab results 03/07/18 03/07/18 03/07/18 Range/Units 07:59 08:45 09:14 Neut % (Auto) 91.1 H (16.0-70.0) % Lymph % (Auto) 3.7 L (9.0-44.0) % Neut # (Auto) 8.4 H (1.8-7.7) th/mm3 Lymph # (Auto) 0.3 L (1.0-4.8) th/mm3 Estimated GFR 67 L (>89) mL/min POC Glucose (68-110) mg/dl Random Glucose 131 H (74-106) mg/dL Calcium 8.2 L (8.5-10.1) mg/dL Total Bilirubin 1.5 H (0.2-1.0) mg/dL AST 87 H (15-37) U/L ALT 93 H (10-53) U/L Alkaline Phosphatase 141 H (45-117) U/L Urine Clarity Hazy H (Clear) Urine Protein 100 H (Neg-Trace) mg/dL Urine Ketones 80 or greater H (Negative) mg/dL Urine Occult Blood Small H (Negative) Urine Nitrate Positive H (Negative) Ur Leukocyte Esterase Trace H (Negative) Urine RBC 8 H (0-3) /hpf Urine WBC 13 H (0-5) /hpf Urine Bacteria Moderate H (None) /hpf Urine Mucus Few H (Occasional) /lpf 03/07/18 Range/Units 12:09 Neut % (Auto) (16.0-70.0) % Lymph % (Auto) (9.0-44.0) % Neut # (Auto) (1.8-7.7) th/mm3 Lymph # (Auto) (1.0-4.8) th/mm3 Estimated GFR (>89) mL/min POC Glucose 133 H (68-110) mg/dl Random Glucose (74-106) mg/dL Calcium (8.5-10.1) mg/dL Total Bilirubin (0.2-1.0) mg/dL AST (15-37) U/L ALT (10-53) U/L Alkaline Phosphatase (45-117) U/L Urine Clarity (Clear) Urine Protein (Neg-Trace) mg/dL Urine Ketones (Negative) mg/dL Urine Occult Blood (Negative) Urine Nitrate (Negative) Ur Leukocyte Esterase (Negative) Urine RBC (0-3) /hpf Urine WBC (0-5) /hpf Urine Bacteria (None) /hpf Urine Mucus (Occasional) /lpf Short CBC 03/07/18 Range/Units 08:45 WBC 9.2 (4.0-11.0) th/mm3 Hgb 14.5 (11.6-15.3) gm/dL Hct 42.8 (35.0-46.0) % Plt Count 180 (150-450) th/mm3 BMP 03/07/18 09:14 Sodium 139 Potassium 3.9 Chloride 104 Carbon Dioxide 26.8 BUN 16 Creatinine 0.86 Calcium 8.2 L Cardiac Enzymes 03/07/18 03/07/18 03/07/18 Range/Units 09:14 10:27 12:40 Total Creatine Kinase 130 152 (26-192) U/L CK-MB (CK-2) 2.7 (0.5-3.6) ng/mL Troponin I 0.02 0.03 0.04 (0.02-0.05) ng/mL Liver Function 03/07/18 Range/Units 09:14 Total Bilirubin 1.5 H (0.2-1.0) mg/dL AST 87 H (15-37) U/L ALT 93 H (10-53) U/L Alkaline Phosphatase 141 H (45-117) U/L Albumin 3.5 (3.4-5.0) g/dL Urine 03/07/18 Range/Units 07:59 Urine Color [place] (Yellw/Straw) Urine Clarity Hazy H (Clear) Urine pH 5.0 (5.0-8.5) Ur Specific [place] 1.023 (1.002-1.035) Urine Protein 100 H (Neg-Trace) mg/dL Urine Glucose (UA) Negative (Negative) mg/dL <Jami Beckford R - 03/08/18 06:54> Abnormal lab results 03/07/18 03/07/18 03/07/18 Range/Units 07:59 08:45 09:14 Neut % (Auto) 91.1 H (16.0-70.0) % Lymph % (Auto) 3.7 L (9.0-44.0) % Neut # (Auto) 8.4 H (1.8-7.7) th/mm3 Lymph # (Auto) 0.3 L (1.0-4.8) th/mm3 Estimated GFR 67 L (>89) mL/min Random Glucose 131 H (74-106) mg/dL Calcium 8.2 L (8.5-10.1) mg/dL Total Bilirubin 1.5 H (0.2-1.0) mg/dL AST 87 H (15-37) U/L ALT 93 H (10-53) U/L Alkaline Phosphatase 141 H (45-117) U/L Urine Clarity Hazy H (Clear) Urine Protein 100 H (Neg-Trace) mg/dL Urine Ketones 80 or greater H (Negative) mg/dL Urine Occult Blood Small H (Negative) Urine Nitrate Positive H (Negative) Ur Leukocyte Esterase Trace H (Negative) Urine RBC 8 H (0-3) /hpf Urine WBC 13 H (0-5) /hpf Urine Bacteria Moderate H (None) /hpf Urine Mucus Few H (Occasional) /lpf Short CBC 03/07/18 Range/Units 08:45 WBC 9.2 (4.0-11.0) th/mm3 Hgb 14.5 (11.6-15.3) gm/dL Hct 42.8 (35.0-46.0) % Plt Count 180 (150-450) th/mm3 BMP 03/07/18 09:14 Sodium 139 Potassium 3.9 Chloride 104 Carbon Dioxide 26.8 BUN 16 Creatinine 0.86 Calcium 8.2 L Cardiac Enzymes 03/07/18 Range/Units 09:14 Total Creatine Kinase 130 (26-192) U/L CK-MB (CK-2) 2.7 (0.5-3.6) ng/mL Troponin I 0.02 (0.02-0.05) ng/mL Liver Function 03/07/18 Range/Units 09:14 Total Bilirubin 1.5 H (0.2-1.0) mg/dL AST 87 H (15-37) U/L ALT 93 H (10-53) U/L Alkaline Phosphatase 141 H (45-117) U/L Albumin 3.5 (3.4-5.0) g/dL Urine 03/07/18 Range/Units 07:59 Urine Color [place] (Yellw/Straw) Urine Clarity Hazy H (Clear) Urine pH 5.0 (5.0-8.5) Ur Specific [place] 1.023 (1.002-1.035) Urine Protein 100 H (Neg-Trace) mg/dL Urine Glucose (UA) Negative (Negative) mg/dL <Brennan Crooks - 03/07/18 10:59> - Imaging Impressions Chest X-Ray 03/07/18 07:04 CONCLUSION: No acute cardiopulmonary abnormality is identified. <Jami Beckford R - 03/08/18 06:54> Impressions Chest X-Ray 03/07/18 07:04 CONCLUSION: No acute cardiopulmonary abnormality is identified. <Brennan Crooks - 03/07/18 10:59> Caprini VTE Risk Assessment Caprini VTE Risk Assessment: Moderate/High Risk (score >= 2) <Brennan Crooks - 03/07/18 12:24> Caprini Risk Assessment Model: Point Value = 1 Point Value = 2 Point Value = 3 Point Value = 5 Age 41-60 Minor surgery BMI > 25 kg/m2 Swollen legs Varicose veins or History of unexplained or recurrent spontaneous Oral contraceptives or hormone replacement Sepsis (< 1 month) Serious lung disease, including pneumonia (< 1 month) Abnormal pulmonary function Acute myocardial infarction Congestive heart failure (< 1 month) History of inflammatory bowel disease Medical patient at bed rest Age 61-74 Arthroscopic surgery Major open surgery (> 45 min) Laparoscopic surgery (> 45 min) Malignancy Confined to bed (> 72 hours) Immobilizing plaster cast Central venous access Age >= 75 History of VTE Family history of VTE Factor V Leiden Prothrombin [id number] Lupus anticoagulant Anticardiolipin antibodies Elevated serum homocysteine Heparin-induced thrombocytopenia Other congenital or acquired thrombophilia Stroke (< 1 month) Elective arthroplasty Hip, pelvis, or leg fracture Acute spinal cord injury (< 1 month) <Jami Beckford R - 03/08/18 06:54> Point Value = 1 Point Value = 2 Point Value = 3 Point Value = 5 Age 41-60 Minor surgery BMI > 25 kg/m2 Swollen legs Varicose veins or History of unexplained or recurrent spontaneous Oral contraceptives or hormone replacement Sepsis (< 1 month) Serious lung disease, including pneumonia (< 1 month) Abnormal pulmonary function Acute myocardial infarction Congestive heart failure (< 1 month) History of inflammatory bowel disease Medical patient at bed rest Age 61-74 Arthroscopic surgery Major open surgery (> 45 min) Laparoscopic surgery (> 45 min) Malignancy Confined to bed (> 72 hours) Immobilizing plaster cast Central venous access Age >= 75 History of VTE Family history of VTE Factor V Leiden Prothrombin [id number] Lupus anticoagulant Anticardiolipin antibodies Elevated serum homocysteine Heparin-induced thrombocytopenia Other congenital or acquired thrombophilia Stroke (< 1 month) Elective arthroplasty Hip, pelvis, or leg fracture Acute spinal cord injury (< 1 month) <Brennan Crooks B - 03/07/18 10:59> Prophylaxis Regimen: Total Risk Factor Score Risk Level Prophylaxis Regimen 0-1 Low Early ambulation 2 Moderate Order ONE of the following: *Sequential Compression Device (SCD) *Heparin 5000 units SQ BID 3-4 Higher Order ONE of the following medications: *Heparin 5000 units SQ TID *Enoxaparin/Lovenox 40 mg SQ daily (WT < 150 kg, CrCl > 30 mL/min) *Enoxaparin/Lovenox 30 mg SQ daily (WT < 150 kg, CrCl > 10-29 mL/min) *Enoxaparin/Lovenox 30 mg SQ BID (WT < 150 kg, CrCl > 30 mL/min) AND/OR *Sequential Compression Device (SCD) 5 or more Highest Order ONE of the following medications: *Heparin 5000 units SQ TID (Preferred with Epidurals) *Enoxaparin/Lovenox 40 mg SQ daily (WT < 150 kg, CrCl > 30 mL/min) *Enoxaparin/Lovenox 30 mg SQ daily (WT < 150 kg, CrCl > 10-29 mL/min) *Enoxaparin/Lovenox 30 mg SQ BID (WT < 150 kg, CrCl > 30 mL/min) AND *Sequential Compression Device (SCD) <Jami Beckford R - 03/08/18 06:54> Total Risk Factor Score Risk Level Prophylaxis Regimen 0-1 Low Early ambulation 2 Moderate Order ONE of the following: *Sequential Compression Device (SCD) *Heparin 5000 units SQ BID 3-4 Higher Order ONE of the following medications: *Heparin 5000 units SQ TID *Enoxaparin/Lovenox 40 mg SQ daily (WT < 150 kg, CrCl > 30 mL/min) *Enoxaparin/Lovenox 30 mg SQ daily (WT < 150 kg, CrCl > 10-29 mL/min) *Enoxaparin/Lovenox 30 mg SQ BID (WT < 150 kg, CrCl > 30 mL/min) AND/OR *Sequential Compression Device (SCD) 5 or more Highest Order ONE of the following medications: *Heparin 5000 units SQ TID (Preferred with Epidurals) *Enoxaparin/Lovenox 40 mg SQ daily (WT < 150 kg, CrCl > 30 mL/min) *Enoxaparin/Lovenox 30 mg SQ daily (WT < 150 kg, CrCl > 10-29 mL/min) *Enoxaparin/Lovenox 30 mg SQ BID (WT < 150 kg, CrCl > 30 mL/min) AND *Sequential Compression Device (SCD) <Brennan Crooks B - 03/07/18 10:59> Assessment and Plan - Assessment (1) Alcohol withdrawal Code(s): F10.239 - Alcohol dependence with withdrawal, unspecified Status: Acute (2) UTI (urinary tract infection) Code(s): N39.0 - Urinary tract infection, site not specified Status: Acute (3) Hypertensive urgency Code(s): I16.0 - Hypertensive urgency Status: Acute (4) COPD (chronic obstructive pulmonary disease) Code(s): J44.9 - Chronic obstructive pulmonary disease, unspecified Status: Acute (5) Tachycardia Code(s): R00.0 - Tachycardia, unspecified Status: Acute (6) History of DVT (deep vein thrombosis) Code(s): Z86.718 - Personal history of other venous thrombosis and embolism Status: Acute (7) Nausea & vomiting Code(s): R11.2 - Nausea with vomiting, unspecified Status: Acute (8) Diabetes Code(s): E11.9 - Type 2 diabetes mellitus without complications Status: Acute (9) Nutrition, metabolism, and development symptoms Code(s): R63.8 - Other symptoms and signs concerning food and fluid intake Status: Acute <Jami Beckford - 03/08/18 06:54> (1) Alcohol withdrawal Code(s): F10.239 - Alcohol dependence with withdrawal, unspecified Status: Acute Plan: Known history of alcohol abuse with a history of seizures and delirium tremens Patient is roughly 2 days out from her last drink Is tachycardic with tremors on admission ANO x3 on admission Ordering CIWA protocol Gave 500 mL infusion of multivitamin/thiamine/folic acid on admission Scheduled Ativan 1 mg p.o. every 6 hours (2) UTI (urinary tract infection) Code(s): N39.0 - Urinary tract infection, site not specified Status: Acute Plan: Urinalysis on admission showing positive nitrates, trace leukocyte esterase, 13 WBC and moderate bacteria Received Rocephin in the ED Rocephin 1 g daily Urine cultures pending (3) Hypertensive urgency Code(s): I16.0 - Hypertensive urgency Status: Acute Plan: Patient presented with a blood pressure of 226/92 Was given 2 separate hydralazine injections in the ED Blood pressure improved to 152/67 Patient has continued to be tachycardic, so will do clonidine 0.1 mg every 6 hours as needed for SBP over 180, DBP over 100 Also started on lisinopril 10 mg p.o. daily (4) COPD (chronic obstructive pulmonary disease) Code(s): J44.9 - Chronic obstructive pulmonary disease, unspecified Status: Acute Plan: Known history of COPD, has not been on any type of inhaler for some time Has some diffuse wheezing and coarse breath sounds on admission Chest x-ray was negative Ordering duo nebs and will monitor (5) Tachycardia Code(s): R00.0 - Tachycardia, unspecified Status: Acute Plan: Noted to be tachycardic on admission up to 130s EKG on admission just showed sinus tachycardia Initial troponin was 0.02 Patient does have a known history of CAD Will trend troponins, EKGs At this point suspect tachycardia to be secondary to alcohol withdrawal No leukocytosis or other signs of sepsis (6) History of DVT (deep vein thrombosis) Code(s): Z86.718 - Personal history of other venous thrombosis and embolism Status: Acute Plan: Patient with reported history of a DVT states that she was previously prescribed Xarelto No calf tenderness or positive Homans sign on physical exam Ordering Lovenox for DVT prophylaxis and will continue to monitor (7) Nausea & vomiting Code(s): R11.2 - Nausea with vomiting, unspecified Status: Acute Plan: Patient reporting significant nausea vomiting prior to arrival Continue Zofran, no electrolyte abnormalities on admission (8) Diabetes Code(s): E11.9 - Type 2 diabetes mellitus without complications Status: Acute Plan: Reportedly has a history of diabetes and been prescribed Lantus and Humulin sliding scale Has not been on either of these for some time Ordering low-dose sliding scale (9) Nutrition, metabolism, and development symptoms Code(s): R63.8 - Other symptoms and signs concerning food and fluid intake Status: Acute Plan: Clear liquid diet No electrolyte abnormalities on admission Lovenox for DVT prophylaxis <Brennan Crooks B - 03/07/18 18:16> - Assessment and Plan 62-year-old female with a history of COPD, diabetes, history of DVT, CAD, history of alcohol abuse presented to the ED with multiple complaints including nausea vomiting, falling recently, concern for alcohol withdrawal. Found to be in hypertensive urgency and tachycardic on admission. Also found to have UTI on admission. Concern of highs priority is alcohol withdrawal at this time. Scheduling Ativan and putting on CIWA protocol. Treat with Rocephin for UTI. Initial ACS workup was negative, will trend. <Brennan Crooks B - 03/07/18 18:24> - Attending Attestation Patient seen and examined with the resident team and agree with the assessment and plan. Patient extremely poor historian and ROS is pyle-positive. She is in obvious alcohol withdrawal and is high risk for DT. Place on scheduled PO benzo as well to attempt to prevent DT. Work up other medical problems and concerns as above. <Jami Beckford R - 03/08/18 06:54> <Brennan Crooks B - Last Filed: 03/07/18 18:16> (1) Alcohol withdrawal Qualifiers: Complication of substance-induced condition: with unspecified complication Qualified Code(s): F10.239 - Alcohol dependence with withdrawal, unspecified <Jami Beckford R - Last Filed: 03/08/18 06:54> (1) Alcohol withdrawal Qualifiers: Complication of substance-induced condition: with unspecified complication Qualified Code(s): F10.239 - Alcohol dependence with withdrawal, unspecified <Brennan Crooks B - Last Filed: 03/07/18 18:16> (1) Alcohol withdrawal Qualifiers: Complication of substance-induced condition: with unspecified complication Qualified Code(s): F10.239 - Alcohol dependence with withdrawal, unspecified <Jami Beckford R - Last Filed: 03/08/18 06:54> (1) Alcohol withdrawal Qualifiers: Complication of substance-induced condition: with unspecified complication Qualified Code(s): F10.239 - Alcohol dependence with withdrawal, unspecified
[2018-03-07 11:23] LABS: Troponin I 0.03 ng/mL (0.02-0.05)
[2018-03-07] MEDS ORDERED: Haloperidol Inj 5 MG/ML Ampul IV.PUSH PRN (11:43)
[2018-03-07] MEDS ORDERED: Dextrose 50% in Water 50 ML Vial IV.PUSH PRN (11:43)
[2018-03-07] MEDS ORDERED: Naloxone Inj 0.4 MG/ML Vial IV.PUSH PRN (11:43)
[2018-03-07] MEDS: Sod Chloride 0.9% Inj 1,000 ML IV.CONT SCH (12:49)
[2018-03-07] MEDS: Insulin NovoLOG Aspart Correctional Sugar Inj SQ SCH ×3 (12:50→22:07)
[2018-03-07] MEDS: Lisinopril 10 MG Tablet PO SCH (13:28)
[2018-03-07] MEDS: Enoxaparin Inj 40 MG/0.4 ML Syringe SQ SCH (13:28)
[2018-03-07] MEDS ORDERED: Multivitamin Inj 10 ML, Thiamine Inj 100 MG, Folic Acid Inj 1 MG in Sodium Chloride 0.4... IV.SIG ONE (14:00)
[2018-03-07] MEDS: LORazepam 1 MG Tablet PO SCH (18:07)
[2018-03-07] MEDS: Senna/Docusate Sodium 8.6/50 MG Tablet PO SCH (21:02)
[2018-03-08] MEDS: Sod Chloride 0.9% Inj 1,000 ML IV.CONT SCH ×2 (00:58→18:24)
[2018-03-08] MEDS: LORazepam 1 MG Tablet PO SCH ×5 (01:15→17:10)
[2018-03-08] MEDS: Insulin NovoLOG Aspart Correctional Sugar Inj SQ SCH ×4 (08:21→20:19)
[2018-03-08] MEDS: Lisinopril 10 MG Tablet PO SCH (08:28)
[2018-03-08] MEDS: LORazepam 1 MG Tablet PO PRN ×2 (08:28→20:18)
[2018-03-08] MEDS: Senna/Docusate Sodium 8.6/50 MG Tablet PO SCH ×2 (08:29→20:20)
[2018-03-08 10:55] LABS: Baso % (Auto) 0.5 % (0.0-2.0); Eos # (Auto) 0.1 th/mm3 (0.0-0.4); Eos % (Auto) 1.1 % (0.0-4.0); Hematocrit 39.6 % (35.0-46.0); Hemoglobin 13.6 gm/dL (11.6-15.3); Lymph # (Auto) 0.4 th/mm3 (1.0-4.8); Lymph % (Auto) 8.8 % (9.0-44.0); Mean Corpuscular HGB Conc 34.4 % (32.0-36.0); Mean Corpuscular Hemoglobin 31.3 pg (27.0-34.0); Mean Corpuscular Volume 90.9 fL (80.0-100.0); Mean Platelet Volume 7.9 fL (7.0-11.0); Mono # (Auto) 0.4 th/mm3 (0.0-0.9); Mono % (Auto) 9.2 % (0.0-8.0); Neut # (Auto) 3.9 th/mm3 (1.8-7.7); Neut % (Auto) 80.4 % (16.0-70.0); Platelet Count 122 th/mm3 (150-450); Red Blood Count 4.36 mil/mm3 (4.00-5.30); White Blood Count 4.9 th/mm3 (4.0-11.0)
--- NOTE | 2018-03-08 11:08 | P.PNFP ---
Subjective Interval history: Patient is less shaky since admission. She is more coherent but she is still a very poor historian and has pyle-positive review of systems. She is most concerned about some pain in her neck and back. States that she fell recently. She c/o black tarry loose stools and states she was living in an [facility] 1 day prior to admission but had left there and checked into a motel the day prior to admission. She c/o cough/congestion and states she is vomiting - but when dw nurse and looking at what she is talking about -- it appears to be just phlegm. No fevers/chills. She wants pain medication and IV ativan. She has refused her nebs today Results - Labs Result diagrams: 03/07/18 08:45 03/07/18 09:14 Abnormal lab results 03/07/18 03/08/18 Range/Units 12:09 08:07 POC Glucose 133 H 112 H (68-110) mg/dl Cardiac Enzymes 03/07/18 03/07/18 Range/Units 10:27 12:40 Total Creatine Kinase 152 (26-192) U/L Troponin I 0.03 0.04 (0.02-0.05) ng/mL - Imaging Chest X-Ray 03/07/18 07:04 CONCLUSION: No acute cardiopulmonary abnormality is identified. Physical Exam Vital signs: Vital Signs 03/07/18 12:02 03/07/18 14:27 03/07/18 17:03 Temperature 98.3 F 98.3 F Pulse Rate 134 H 119 H 123 H Respiratory Rate 20 20 20 Blood Pressure 152/67 H 147/71 H 146/85 H Pulse Oximetry 96 95 95 03/07/18 20:00 03/07/18 21:06 03/08/18 00:00 Temperature 98 F 98.2 F Pulse Rate 97 H 79 Respiratory Rate 20 20 Blood Pressure 156/70 H 117/55 L Pulse Oximetry 98 98 94 L 03/08/18 07:19 Temperature 98.0 F Pulse Rate 89 Respiratory Rate 20 Blood Pressure 175/78 H Pulse Oximetry 98 Intake & Output 03/07/18 03/08/18 03/08/18 18:59 06:59 18:59 Intake Total 2340 / 2340 Balance 2340 / 2340 Weight 71.6 kg Intake: IV 2100 / 2100 NS Inj 1,000 ML @ 2000 mls/hr 1999 IV.SIG Q30M JUANPABLO Rx#:[id number] Rocephin Inj 1,000 MG In NS Inj 100 / 100 100 ML @ 200 mls/hr IV.SIG ONCE ONE Rx#:[id number] Oral 240 / 240 Other: # Voids 2 Date of Last Bowel Movement 03/07/18 03/08/18 - Constitutional chronically ill appearing, disheveled - Routine HEENT Exam Head: Present: normocephalic, atraumatic. Absent: abrasion, scalp tenderness, facial swelling Eye: Present: PERRL. Absent: conjunctival icterus, periorbital ecchymosis ENT: Present: mucous membranes moist, external ear normal - Routine Neck Exam Present: supple, tenderness. Absent: swelling, trauma Comments: no tenderness along the c-spine, she has dowagers hump, no bruising seen - Routine Respiratory Exam Present: wheezes, crackles. Absent: accessory muscle use, rales, respiratory distress - Routine Abdominal Exam Present: soft, normoactive bowel sounds. Absent: tenderness - Routine Extremities Exam Absent: clubbing, edema, tenderness - Routine Skin Exam Present: intact, ecchymosis Comments: small ecchymoses with soft tissue swelling around the left lower back -- tender - Routine Neurological Exam Present: alert, oriented X3, normal tone, normal speech, tremors Assessment and Plan - Assessment (1) Black stools Code(s): K92.1 - Melena Status: Acute Plan: Patient reports last few days of black loose stools. She states is tarry. No h /o GI bleed. Check hemoccult and C.Dif (2) Neck pain Code(s): M54.2 - Cervicalgia Status: Acute Plan: Exam is benign. Patient likes has a degenerative process. If Hemoccult negative will consider giving NSAIDS. Will try to avoid opiates in this patient (3) Alcohol withdrawal Code(s): F10.239 - Alcohol dependence with withdrawal, unspecified Status: Acute Plan: Less tremors today. A&O, Continue current plan of scheduled Ativan 1 mg p.o. every 6 hours with CIWA protocol for prn coverage. Will need to wean PO Ativan as well perhaps starting tomorrow based on the patients clinical progress (4) UTI (urinary tract infection) Code(s): N39.0 - Urinary tract infection, site not specified Status: Acute Plan: Continue the Rocephin and follow cultures (5) Hypertensive urgency Code(s): I16.0 - Hypertensive urgency Status: Acute Plan: BP improving. Likely a lot of the reason her BP was elevated was due to the acute ETOH withdrawal. Continue current treatment plan. (6) COPD (chronic obstructive pulmonary disease) Code(s): J44.9 - Chronic obstructive pulmonary disease, unspecified Status: Acute Plan: Continue DUONEBS scheduled (7) Tachycardia Code(s): R00.0 - Tachycardia, unspecified Status: Acute Plan: Improved -- likely secondary to not taking meds and also Acute ETOH withdrawal. (8) History of DVT (deep vein thrombosis) Code(s): Z86.718 - Personal history of other venous thrombosis and embolism Status: Acute Plan: Patient with reported history of a DVT states that she was previously prescribed Xarelto No calf tenderness or positive Homans sign on physical exam Ordering Lovenox for DVT prophylaxis and will continue to monitor (9) Nausea & vomiting Code(s): R11.2 - Nausea with vomiting, unspecified Status: Acute Plan: Patient reporting significant nausea vomiting prior to arrival Continue Zofran, no electrolyte abnormalities on admission No vomiting appreciated. Patient has been asked to show any vomit to the nurse (10) Diabetes Code(s): E11.9 - Type 2 diabetes mellitus without complications Status: Acute Plan: Reportedly has a history of diabetes and been prescribed Lantus and Humulin sliding scale Has not been on either of these for some time Ordering low-dose sliding scale (11) Nutrition, metabolism, and development symptoms Code(s): R63.8 - Other symptoms and signs concerning food and fluid intake Status: Acute Plan: Clear liquid diet No electrolyte abnormalities on admission Lovenox for DVT prophylaxis - Assessment and Plan 62-year-old female with a history of COPD, diabetes, history of DVT, CAD, history of alcohol abuse presented to the ED with multiple complaints including nausea vomiting, falling recently, and alcohol withdrawal. Found to be in hypertensive urgency and tachycardic on admission. Also found to have UTI on admission. Improved since admission - no sign of seizures and patient remains alert and oriented. Continue plan as above Discussed Condition With: Resident team -- Dr. Pinzon, Dr. Francois (3) Alcohol withdrawal Qualifiers: Complication of substance-induced condition: with unspecified complication Qualified Code(s): F10.239 - Alcohol dependence with withdrawal, unspecified
[2018-03-08 11:24] LABS: Alanine Aminotransferase 73 U/L (10-53); Albumin 3.4 g/dL (3.4-5.0); Anion Gap 6 meq/L (5-15); Aspartate Aminotransferase 71 U/L (15-37); Blood Urea Nitrogen 14 mg/dL (7-18); Calcium 8.4 mg/dL (8.5-10.1); Carbon Dioxide 28.2 meq/L (21.0-32.0); Chloride 106 meq/L (98-107); Glomerular Filtration Rate 64 mL/min (>89); Glucose,Random 142 mg/dL (74-106); Potassium 3.3 meq/L (3.5-5.1); Sodium 140 meq/L (136-145)
[2018-03-08 11:27] LABS: Alkaline Phosphatase 119 U/L (45-117); Total Protein 7.5 g/dL (6.4-8.2)
[2018-03-08 12:11] LABS: Hepatitis A IgM Antibody Nonreactive (Nonreactive); Hepatitits B Surface Antigen Reactive (Nonreactive)
[2018-03-08] MEDS: Enoxaparin Inj 40 MG/0.4 ML Syringe SQ SCH (13:37)
--- NOTE | 2018-03-08 17:35 | ECG ---
Date Performed: 03/07/2018 Time Performed: 07:49:38 PTAGE: 62 years EKG: SINUS TACHYCARDIA ABNORMAL RHYTHM ECG INTERPRETATION BASED ON A DEFAULT AGE OF 39 YEARS PREVIOUS TRACING : 03/02/2018 08.45 DOCTOR: Sanjay Gomes Interpretating Date/Time 03/08/2018 17:26:25
[2018-03-08 19:45] LABS: Hematocrit 37.1 % (35.0-46.0); Hemoglobin 12.5 gm/dL (11.6-15.3)
[2018-03-09] MEDS: LORazepam 1 MG Tablet PO SCH ×4 (00:02→17:52)
[2018-03-09] MEDS: Sod Chloride 0.9% Inj 1,000 ML IV.CONT SCH ×2 (03:10→19:25)
[2018-03-09] MEDS: Insulin NovoLOG Aspart Correctional Sugar Inj SQ SCH ×4 (08:39→20:36)
[2018-03-09] MEDS: Senna/Docusate Sodium 8.6/50 MG Tablet PO SCH ×3 (08:40→20:36)
[2018-03-09] MEDS: LORazepam 1 MG Tablet PO PRN ×3 (08:40→20:42)
[2018-03-09] MEDS: Lisinopril 10 MG Tablet PO SCH (08:40)
[2018-03-09 08:49] LABS: Hematocrit 37.8 % (35.0-46.0); Hemoglobin 12.9 gm/dL (11.6-15.3); Mean Corpuscular HGB Conc 34.1 % (32.0-36.0); Mean Corpuscular Volume 91.2 fL (80.0-100.0); Mean Platelet Volume 7.5 fL (7.0-11.0); Platelet Count 109 th/mm3 (150-450); Red Blood Count 4.15 mil/mm3 (4.00-5.30); Red Cell Distribution Width 14.9 % (11.6-17.2); White Blood Count 4.8 th/mm3 (4.0-11.0)
[2018-03-09 09:20] LABS: Alanine Aminotransferase 61 U/L (10-53); Albumin 2.8 g/dL (3.4-5.0); Alkaline Phosphatase 105 U/L (45-117); Anion Gap 6 meq/L (5-15); Aspartate Aminotransferase 66 U/L (15-37); Blood Urea Nitrogen 9 mg/dL (7-18); Calcium 8.2 mg/dL (8.5-10.1); Carbon Dioxide 28.2 meq/L (21.0-32.0); Chloride 106 meq/L (98-107); Glomerular Filtration Rate 72 mL/min (>89); Glucose,Random 111 mg/dL (74-106); Potassium 3.4 meq/L (3.5-5.1); Sodium 140 meq/L (136-145); Total Protein 6.7 g/dL (6.4-8.2)
--- NOTE | 2018-03-09 10:22 | P.PNFP ---
Subjective Interval history: No acute events overnight. Nurse reported she found patient smoking cigarettes in the bathroom. She continues to have loose stools but otherwise complains of generalized pain. Denies any chest pain, worsening shortness of breath. She is requesting a regular diet at this time. She has also been refusing breathing treatments. <Brennan Crooks B - 03/09/18 11:54> Results - Labs Result diagrams: 03/10/18 07:25 03/10/18 07:25 <Jami Beckford R - 03/10/18 10:18> Abnormal lab results 03/08/18 03/10/18 03/10/18 Range/Units 10:00 07:25 07:25 Plt Count 89 L (150-450) th/mm3 [place] % (Auto) 12.7 H (0.0-8.0) % Lymph # (Auto) 0.8 L (1.0-4.8) th/mm3 Potassium 3.4 L (3.5-5.1) meq/L Hemoglobin A1c 6.1 H (4.3-6.0) % Calcium 7.7 L (8.5-10.1) mg/dL AST 57 H (15-37) U/L ALT 55 H (10-53) U/L Albumin 2.5 L (3.4-5.0) g/dL Short CBC 03/10/18 Range/Units 07:25 WBC 4.9 (4.0-11.0) th/mm3 Hgb 12.5 (11.6-15.3) gm/dL Hct 37.5 (35.0-46.0) % Plt Count 89 L (150-450) th/mm3 BMP 03/10/18 07:25 Sodium 140 Potassium 3.4 L Chloride 106 Carbon Dioxide 28.9 BUN 8 Creatinine 0.65 Calcium 7.7 L Liver Function 03/10/18 Range/Units 07:25 Total Bilirubin 0.8 (0.2-1.0) mg/dL AST 57 H (15-37) U/L ALT 55 H (10-53) U/L Alkaline Phosphatase 94 (45-117) U/L Albumin 2.5 L (3.4-5.0) g/dL <Jami Beckford R - 03/10/18 10:18> Abnormal lab results 03/07/18 03/08/18 03/08/18 Range/Units 07:59 10:00 10:00 Plt Count 122 L D (150-450) th/mm3 Neut % (Auto) 80.4 H (16.0-70.0) % Lymph % (Auto) 8.8 L (9.0-44.0) % [place] % (Auto) 9.2 H (0.0-8.0) % Lymph # (Auto) 0.4 L (1.0-4.8) th/mm3 Potassium (3.5-5.1) meq/L Estimated GFR (>89) mL/min POC Glucose (68-110) mg/dl Random Glucose (74-106) mg/dL Calcium (8.5-10.1) mg/dL Total Bilirubin (0.2-1.0) mg/dL AST (15-37) U/L ALT (10-53) U/L Alkaline Phosphatase (45-117) U/L Albumin (3.4-5.0) g/dL Urine Clarity Hazy H (Clear) Urine Protein 100 H (Neg-Trace) mg/dL Urine Ketones 80 or greater H (Negative) mg/dL Urine Occult Blood Small H (Negative) Urine Nitrate Positive H (Negative) Ur Leukocyte Esterase Trace H (Negative) Urine RBC 8 H (0-3) /hpf Urine WBC 13 H (0-5) /hpf Urine Bacteria Moderate H (None) /hpf Urine Mucus Few H (Occasional) /lpf Hep Bs Antigen Reactive H (Nonreactive) Hep C IgG Ab Reactive H (Nonreactive) 03/08/18 03/08/18 03/09/18 Range/Units 10:00 12:23 08:26 Plt Count 109 L (150-450) th/mm3 Neut % (Auto) (16.0-70.0) % Lymph % (Auto) (9.0-44.0) % [place] % (Auto) (0.0-8.0) % Lymph # (Auto) (1.0-4.8) th/mm3 Potassium 3.3 L (3.5-5.1) meq/L Estimated GFR 64 L (>89) mL/min POC Glucose 144 H (68-110) mg/dl Random Glucose 142 H (74-106) mg/dL Calcium 8.4 L (8.5-10.1) mg/dL Total Bilirubin 1.3 H (0.2-1.0) mg/dL AST 71 H (15-37) U/L ALT 73 H (10-53) U/L Alkaline Phosphatase 119 H (45-117) U/L Albumin (3.4-5.0) g/dL Urine Clarity (Clear) Urine Protein (Neg-Trace) mg/dL Urine Ketones (Negative) mg/dL Urine Occult Blood (Negative) Urine Nitrate (Negative) Ur Leukocyte Esterase (Negative) Urine RBC (0-3) /hpf Urine WBC (0-5) /hpf Urine Bacteria (None) /hpf Urine Mucus (Occasional) /lpf Hep Bs Antigen (Nonreactive) Hep C IgG Ab (Nonreactive) 03/09/18 Range/Units 08:26 Plt Count (150-450) th/mm3 Neut % (Auto) (16.0-70.0) % Lymph % (Auto) (9.0-44.0) % [place] % (Auto) (0.0-8.0) % Lymph # (Auto) (1.0-4.8) th/mm3 Potassium 3.4 L (3.5-5.1) meq/L Estimated GFR 72 L (>89) mL/min POC Glucose (68-110) mg/dl Random Glucose 111 H (74-106) mg/dL Calcium 8.2 L (8.5-10.1) mg/dL Total Bilirubin 1.3 H (0.2-1.0) mg/dL AST 66 H (15-37) U/L ALT 61 H (10-53) U/L Alkaline Phosphatase (45-117) U/L Albumin 2.8 L D (3.4-5.0) g/dL Urine Clarity (Clear) Urine Protein (Neg-Trace) mg/dL Urine Ketones (Negative) mg/dL Urine Occult Blood (Negative) Urine Nitrate (Negative) Ur Leukocyte Esterase (Negative) Urine RBC (0-3) /hpf Urine WBC (0-5) /hpf Urine Bacteria (None) /hpf Urine Mucus (Occasional) /lpf Hep Bs Antigen (Nonreactive) Hep C IgG Ab (Nonreactive) Short CBC 03/08/18 03/08/18 03/09/18 Range/Units 10:00 19:31 08:26 WBC 4.9 4.8 (4.0-11.0) th/mm3 Hgb 13.6 12.5 12.9 (11.6-15.3) gm/dL Hct 39.6 37.1 37.8 (35.0-46.0) % Plt Count 122 L D 109 L (150-450) th/mm3 BMP 03/08/18 03/09/18 10:00 08:26 Sodium 140 140 Potassium 3.3 L 3.4 L Chloride 106 106 Carbon Dioxide 28.2 28.2 BUN 14 9 Creatinine 0.89 0.80 Calcium 8.4 L 8.2 L Liver Function 03/08/18 03/09/18 Range/Units 10:00 08:26 Total Bilirubin 1.3 H 1.3 H (0.2-1.0) mg/dL AST 71 H 66 H (15-37) U/L ALT 73 H 61 H (10-53) U/L Alkaline Phosphatase 119 H 105 (45-117) U/L Albumin 3.4 2.8 L D (3.4-5.0) g/dL Urine 03/07/18 Range/Units 07:59 Urine Color [place] (Yellw/Straw) Urine Clarity Hazy H (Clear) Urine pH 5.0 (5.0-8.5) Ur Specific [place] 1.023 (1.002-1.035) Urine Protein 100 H (Neg-Trace) mg/dL Urine Glucose (UA) Negative (Negative) mg/dL <Brennan Crooks B - 03/09/18 10:22> - Imaging Impressions Liver Ultrasound 03/09/18 00:00 CONCLUSION: 1. No acute finding is identified to explain the abdominal pain. 2. Stable nonspecific cystic lesions within the spleen. However, the lack of significant change since July 2015 is consistent with a benign process. <Jami Beckford - 03/10/18 10:18> Physical Exam Vital signs: Vital Signs 03/09/18 11:43 03/09/18 11:56 03/09/18 16:00 Temperature 98.4 F 99.1 F Pulse Rate 86 98 H Respiratory Rate 16 20 Blood Pressure 169/81 H 152/76 H Pulse Oximetry 95 95 99 03/09/18 20:00 03/10/18 00:00 03/10/18 03:11 Temperature 99.5 F 98.0 F Pulse Rate 95 H 77 78 Respiratory Rate 20 20 Blood Pressure 165/72 H 142/67 H Pulse Oximetry 95 98 03/10/18 04:00 Temperature 98.0 F Pulse Rate 69 Respiratory Rate 18 Blood Pressure 127/61 Pulse Oximetry 98 Intake & Output 03/09/18 03/10/18 03/10/18 18:59 06:59 18:59 Intake Total 340 / 340 Balance 340 / 340 Weight 72.5 kg Intake: IV 100 / 100 Rocephin Inj 1,000 MG In NS Inj 100 / 100 100 ML @ 200 mls/hr IV.SIG Q24H [facility]LO Rx#:[id number] Oral 240 / 240 Other: # Voids 3 Date of Last Bowel Movement 03/08/18 03/09/18 # Bowel Movements 1 # Incontinent Bowel Movements 1 <Jami Beckford - 03/10/18 10:18> Vital Signs 03/08/18 11:49 03/08/18 16:00 03/08/18 20:00 Temperature 98.3 F 98.2 F 98.7 F Pulse Rate 66 91 H 87 Respiratory Rate 18 18 18 Blood Pressure 161/69 H 166/79 H 173/79 H Pulse Oximetry 96 97 96 03/09/18 04:00 03/09/18 08:00 Temperature 98.9 F 98 F Pulse Rate 81 71 Respiratory Rate 18 18 Blood Pressure 155/70 H 132/60 Pulse Oximetry 95 96 Intake & Output 03/08/18 03/09/18 03/09/18 18:59 06:59 18:59 Intake Total 1040 / 1040 Output Total 200 / 200 50 / 50 Balance 840 / 840 -50 / -50 Weight 72.3 kg Intake: IV 100 / 100 Rocephin Inj 1,000 MG In NS Inj 100 / 100 100 ML @ 200 mls/hr IV.SIG Q24H JUANPABLO Rx#:[id number] Oral 940 / 940 Output: Urine 200 / 200 50 / 50 Other: # Voids 2 Date of Last Bowel Movement 03/08/18 03/08/18 # Bowel Movements 2 <Brennan Crooks - 03/09/18 10:22> Narrative: GENERAL: Well-nourished female sitting upright in bed in no acute distress. Answering questions appropriately. SKIN: Warm and dry. HEAD: Atraumatic. Normocephalic. EYES: Pupils equal and round. No scleral icterus. No injection or drainage. ENT: No nasal bleeding or discharge. Mucous membranes pink and moist. NECK: Trachea midline. No JVD. CARDIOVASCULAR: regular rate and rhythm. No murmurs appreciated. RESPIRATORY: No accessory muscle use. Coarse breath sounds bilaterally with occasional wheezes -improved from prior exam. GASTROINTESTINAL: Abdomen soft, non-tender, nondistended. Hepatic and splenic margins not palpable. MUSCULOSKELETAL: Extremities without clubbing, cyanosis, or edema. No obvious deformities. NEUROLOGICAL: Awake and alert. Cranial nerves II through XII intact. No pronator drift. Motor grossly within normal limits. Five out of 5 muscle strength in the arms and legs. Sensation intact and equal bilaterally. Normal speech. PSYCHIATRIC: Appropriate mood and affect; insight and judgment normal. <Brennan Crooks B - 03/09/18 11:54> Assessment and Plan - Assessment (1) Alcohol withdrawal Code(s): F10.239 - Alcohol dependence with withdrawal, unspecified Status: Acute (2) Positive hepatitis test Code(s): R76.8 - Other specified abnormal immunological findings in serum Status: Acute (3) UTI (urinary tract infection) Code(s): N39.0 - Urinary tract infection, site not specified Status: Acute (4) Black stools Code(s): K92.1 - Melena Status: Acute (5) Neck pain Code(s): M54.2 - Cervicalgia Status: Acute (6) Hypertensive urgency Code(s): I16.0 - Hypertensive urgency Status: Acute (7) COPD (chronic obstructive pulmonary disease) Code(s): J44.9 - Chronic obstructive pulmonary disease, unspecified Status: Acute (8) History of DVT (deep vein thrombosis) Code(s): Z86.718 - Personal history of other venous thrombosis and embolism Status: Acute (9) Nausea & vomiting Code(s): R11.2 - Nausea with vomiting, unspecified Status: Acute (10) Diabetes Code(s): E11.9 - Type 2 diabetes mellitus without complications Status: Acute (11) Tobacco dependence Code(s): F17.200 - Nicotine dependence, unspecified, uncomplicated Status: Acute (12) Nutrition, metabolism, and development symptoms Code(s): R63.8 - Other symptoms and signs concerning food and fluid intake Status: Acute <Jami Beckford R - 03/10/18 10:18> (1) Alcohol withdrawal Code(s): F10.239 - Alcohol dependence with withdrawal, unspecified Status: Acute Plan: Less tremors today. A&O, Continue current plan of scheduled Ativan 1 mg p.o. every 6 hours with CIWA protocol for prn coverage. Will need to wean PO Ativan as well perhaps starting tomorrow based on the patients clinical progress. Avoiding opiates for pain as we did not want any other sedating medications on board at this time. (2) UTI (urinary tract infection) Code(s): N39.0 - Urinary tract infection, site not specified Status: Acute Plan: Started on Rocephin for UTI, cultures now growing ESBL E. coli. Consulting ID (3) Black stools Code(s): K92.1 - Melena Status: Acute Plan: Patient reports last few days of black loose stools. She states is tarry. No h /o GI bleed. Hemoccult and C. difficile negative, continue to monitor (4) Neck pain Code(s): M54.2 - Cervicalgia Status: Acute Plan: Exam is benign. Patient likes has a degenerative process. Patient states she is allergic to all NSAIDs Avoiding opiates as above (5) Hypertensive urgency Code(s): I16.0 - Hypertensive urgency Status: Acute Plan: BP improving. Likely a secondary to the acute ETOH withdrawal. Continue current treatment plan. (6) COPD (chronic obstructive pulmonary disease) Code(s): J44.9 - Chronic obstructive pulmonary disease, unspecified Status: Acute Plan: Continue DUONEBS scheduled, however patient is refusing breathing treatments (7) History of DVT (deep vein thrombosis) Code(s): Z86.718 - Personal history of other venous thrombosis and embolism Status: Acute Plan: Patient with reported history of a DVT states that she was previously prescribed Xarelto No calf tenderness or positive Homans sign on physical exam Lovenox for DVT prophylaxis and will continue to monitor (8) Nausea & vomiting Code(s): R11.2 - Nausea with vomiting, unspecified Status: Acute Plan: Patient reporting significant nausea vomiting prior to arrival Continue Zofran, no electrolyte abnormalities on admission No vomiting appreciated. Patient has been asked to show any vomit to the nurse (9) Diabetes Code(s): E11.9 - Type 2 diabetes mellitus without complications Status: Acute Plan: Reportedly has a history of diabetes and been prescribed Lantus and Humulin sliding scale Low-dose sliding scale (10) Tobacco dependence Code(s): F17.200 - Nicotine dependence, unspecified, uncomplicated Status: Acute Plan: Nurse reported finding patient in the bathroom smoking cigarettes Counseled patient that this is an appropriate Ordering nicotine patch (11) Nutrition, metabolism, and development symptoms Code(s): R63.8 - Other symptoms and signs concerning food and fluid intake Status: Acute Plan: Regular diet No electrolyte abnormalities on admission Lovenox for DVT prophylaxis <Brennan Crooks - 03/09/18 11:46> - Assessment and Plan 62-year-old female with a history of COPD, diabetes, history of DVT, CAD, history of alcohol abuse presented to the ED with multiple complaints including nausea vomiting, falling recently, and alcohol withdrawal. Band of UTI on admission and is now growing ESBL E. coli. Consulted ID Improved since admission - no sign of seizures and patient remains alert and oriented. <Brennan Crooks - 03/09/18 11:54> - Attending Attestation Patient dw resident team. Agree with assessment and plan <Jami Beckford - 03/10/18 10:18> <Brennan Crooks B - Last Filed: 03/09/18 11:46> (1) Alcohol withdrawal Qualifiers: Complication of substance-induced condition: with unspecified complication Qualified Code(s): F10.239 - Alcohol dependence with withdrawal, unspecified <Jami Beckford - Last Filed: 03/10/18 10:18> (1) Alcohol withdrawal Qualifiers: Complication of substance-induced condition: with unspecified complication Qualified Code(s): F10.239 - Alcohol dependence with withdrawal, unspecified <Brennan Crooks - Last Filed: 03/09/18 11:46> (1) Alcohol withdrawal Qualifiers: Complication of substance-induced condition: with unspecified complication Qualified Code(s): F10.239 - Alcohol dependence with withdrawal, unspecified <Jami Beckford R - Last Filed: 03/10/18 10:18> (1) Alcohol withdrawal Qualifiers: Complication of substance-induced condition: with unspecified complication Qualified Code(s): F10.239 - Alcohol dependence with withdrawal, unspecified
[2018-03-09 12:06] LABS: Hemoglobin A1c 6.1 % (4.3-6.0)
[2018-03-09] MEDS: Enoxaparin Inj 40 MG/0.4 ML Syringe SQ SCH (12:31)
--- NOTE | 2018-03-09 15:11 | P.CONID ---
History of Present Illness Service: Infectious disease Consult date: 03/09/18 Requesting Physician: Jami Beckford Reason for Consult: Evaluation and Mment of ESBL E.coli UTI Primary Care Provider: UNKNOWN History of Present Illness: is a 62y/o CF who is not very forth coming with history. Dw RN patient keeps to herself and mostly communicates for pain medications. Most of the history was obtained by review of medical records. Patient's past medical history significant for COPD, coronary artery disease, alcohol abuse, diabetes and hypertension. With this background patient presents to the emergency department with falls as well as chest pain. Patient is reported to others history of alcohol withdrawal seizures in the past. It appears that upon performing a review of systems she was positive for almost all symptoms. Patient had reported no urinary symptoms on admission. She had no fevers, chills. Family Hx: CAD, mother of non-hodgkins lymphoma Social: Lives alone in a hotel room, 5 cig per day, no substance abuse, alcohol as above Infectious Disease consulted for evaluation and Mment of ESBL E.coli UTI. Review of Systems All other systems reviewed negative except as stated in HPI PMFSH - History History Provided By: Patient - Medical History Medical History: Medical History (Last Reviewed 03/07/18 @ 13:52 by Rashida Urias) Asthma COPD (chronic obstructive pulmonary disease) HBP (high blood pressure) History of hysterectomy Smoker - Surgical History Surgical History: Surgical History (Last Reviewed 03/07/18 @ 13:52 by Rashida Urias) Hx of cholecystectomy - Tobacco History Second Hand Smoke Exposure: Yes Tobacco Use In Past 30 Days: Yes Smoking Status: Current every day smoker Tobacco Type: Cigarettes - Alcohol History How Often Do You Have a Drink Containing Alcohol: Monthly or less - Substance Use History Substance History: No History of Abuse - Travel History Recent Travel in the [place] Within the Last 8 Weeks: No Recent Travel Out of the Country Within the Last 8 Weeks: No - Immunization History Tetanus Immunization: Unsure Medications and Allergies Active Medications: Active Medications Al Hydroxide/Mg Hydroxide (Milk Of Bladimir Liq) 30 ml PO Q12H PRN PRN Reason: Mild Constipation Albuterol (Ventolin Hfa Inh) 2 puff INH Q4H PRN PRN Reason: SHORTNESS OF BREATH/WHEEZING Albuterol (Duoneb Neb (Ajith)) 1 ampul NEB Q4HR NEB AJITH Last Admin: 03/09/18 11:45 Dose: Not Given Clonidine HCl (Catapres) 0.1 mg PO Q6H PRN PRN Reason: SEE LABEL COMMENTS Dextrose (D50w Vial) 50 ml IV.PUSH UNSCH PRN PRN Reason: PER HYPOGLYCEMIA PROTOCOL Enoxaparin Sodium (Lovenox Inj) 40 mg SQ Q24H [facility] Last Admin: 03/09/18 12:31 Dose: 40 mg Flumazenil (Romazecon Inj) 0.2 mg IV.PUSH Q1M PRN PRN Reason: OVERSEDATION Glucagon (Glucagon Inj) 1 mg OTHER PRN PRN PRN Reason: for Hypoglycemia Protocol Haloperidol Lactate (Haldol Inj) 1 mg IV.PUSH Q15M PRN PRN Reason: for severe agitation Sodium Chloride (Ns Inj) 1,000 mls @ 100 mls/hr IV.CONT .Q10H [facility] Last Admin: 03/09/18 03:10 Dose: Not Given Ceftriaxone Sodium 1,000 mg/ (Sodium Chloride) 100 mls @ 200 mls/hr IV.SIG Q24H [facility] Last Infusion: 03/09/18 12:24 Dose: Infused Insulin Aspart (Novolog Insulin Correctional Sugar Inj) 0 unit SQ [facility]; Protocol Last Admin: 03/09/18 11:34 Dose: Not Given Lisinopril (Prinivil) 10 mg PO DAILY [facility] Last Admin: 03/09/18 08:40 Dose: 10 mg Lorazepam (Ativan) 1 mg PO Q4H PRN PRN Reason: for CIWA 8-10 Last Admin: 03/09/18 08:40 Dose: 1 mg Lorazepam (Ativan) 2 mg PO Q2H PRN PRN Reason: for CIWA 11-14 Last Admin: 03/08/18 14:05 Dose: 2 mg Lorazepam (Ativan Inj) 2 mg IV.PUSH Q1H PRN PRN Reason: for CIWA 15-20 Last Admin: 03/07/18 15:46 Dose: 2 mg Lorazepam (Ativan Inj) 2 mg IV.PUSH Q15M PRN PRN Reason: for CIWA > 20 Lorazepam (Ativan Inj) 1 mg IV.PUSH Q4H PRN PRN Reason: for CIWA 8-10 Last Admin: 03/09/18 06:21 Dose: 1 mg Lorazepam (Ativan Inj) 2 mg IV.PUSH Q2H PRN PRN Reason: for CIWA 11-14 Last Admin: 03/09/18 03:10 Dose: 2 mg Lorazepam (Ativan) 1 mg PO Q6HR [facility] Last Admin: 03/09/18 11:38 Dose: 1 mg Naloxone HCl (Narcan Inj) 0.4 mg IV.PUSH UNSCH PRN PRN Reason: SEE LABEL COMMENTS Nicotine (Habitrol 14 Mg Patch.24 Hr) 1 patch T-DERMAL DAILY [facility] Last Admin: 03/09/18 12:30 Dose: Not Given Ondansetron HCl (Zofran Inj) 4 mg IV.PUSH Q6H PRN PRN Reason: NAUSEA OR VOMITING Last Admin: 03/09/18 05:26 Dose: 4 mg Patch Removal (Remove Old Patch) 1 each T-DERMAL HS [facility] Senna/Docusate Sodium (Zohreh-Colace) 1 tab PO BID [facility] Last Admin: 03/09/18 08:41 Dose: Not Given Sodium Chloride (Ns Flush) 2 ml IV.FLUSH UNSCH PRN PRN Reason: FLUSH AFTER USING IV ACCESS Sodium Chloride (Ns Flush) 2 ml IV.FLUSH PRN PRN PRN Reason: FLUSH AFTER USING IV ACCESS Sodium Chloride (Ns Flush) 2 ml IV.FLUSH BID [facility] Last Admin: 03/09/18 08:43 Dose: Not Given Allergies Allergy/AdvReac Type Severity Reaction Status Date / Time diclofenac Allergy Severe HAS ULCERS Verified 03/02/18 08:36 etodolac Allergy Severe HAS ULCERS Verified 03/02/18 08:36 flurbiprofen Allergy Severe HAS ULCERS Verified 03/02/18 08:36 indomethacin Allergy Severe HAS ULCERS Verified 03/02/18 08:36 iodine Allergy Severe Swelling Verified 03/02/18 08:36 ketoprofen Allergy Severe Hives Verified 03/02/18 08:36 ketorolac Allergy Severe Hives Verified 03/02/18 08:36 naproxen Allergy Severe Hives Verified 03/02/18 08:36 oxaprozin Allergy Severe Hives Verified 03/02/18 08:36 potassium iodide Allergy Severe Hives Verified 03/02/18 08:36 povidone-iodine Allergy Severe Swelling Verified 07/31/17 13:30 sodium iodide Allergy Severe Swelling Verified 07/31/17 13:30 sodium iodide Allergy Severe Swelling Verified 07/31/17 13:30 Sulfa (Sulfonamide Allergy Severe HIVES AND Verified 07/31/17 13:30 Antibiotics) RASH acetaminophen AdvReac Intermediate Hives Verified 03/02/18 08:36 Home Medications Medication Instructions Recorded Confirmed Type No Known Home Medications 03/02/18 03/07/18 History Exam Vital signs: Vital Signs 03/08/18 16:00 03/08/18 20:00 03/09/18 04:00 Temperature 98.2 F 98.7 F 98.9 F Pulse Rate 91 H 87 81 Respiratory Rate 18 18 18 Blood Pressure 166/79 H 173/79 H 155/70 H Pulse Oximetry 97 96 95 03/09/18 08:00 03/09/18 11:43 03/09/18 11:56 Temperature 98 F 98.4 F Pulse Rate 71 86 Respiratory Rate 18 16 Blood Pressure 132/60 169/81 H Pulse Oximetry 96 95 95 Intake & Output 03/08/18 03/09/18 03/09/18 18:59 06:59 18:59 Intake Total 1040 / 1040 340 / 340 Output Total 200 / 200 50 / 50 Balance 840 / 840 -50 / -50 340 / 340 Weight 72.3 kg Intake: IV 100 / 100 100 / 100 Rocephin Inj 1,000 MG In NS Inj 100 / 100 100 / 100 100 ML @ 200 mls/hr IV.SIG Q24H [facility] Rx#:[id number] Oral 940 / 940 240 / 240 Output: Urine 200 / 200 50 / 50 Other: # Voids 2 Date of Last Bowel Movement 03/08/18 03/08/18 03/08/18 # Bowel Movements 2 1 # Incontinent Bowel Movements 1 Narrative: GENERAL: Well-nourished well-developed, not in acute distress SKIN: Cool and dry, no generalized rash. Hoarse voice (smoking related) HEAD: Atraumatic. Normocephalic. No temporal or scalp tenderness. EYES: Pupils equal round and reactive. Scleral icterus. No injection or drainage. No petechia ENT: Nothing abnormal detected NECK: Trachea midline. Supple, nontender, no meningeal signs. CARDIOVASCULAR: HS audible. RESPIRATORY: Clear to auscultation bilaterally. GASTROINTESTINAL: Abdomen soft nontender. MUSCULOSKELETAL: Extremities without clubbing, cyanosis. NEUROLOGICAL: Alert oriented 3. Nonfocal. Psych cooperative IV line sites ok. Results - Labs CBC & Chem 7: 03/09/18 08:26 03/09/18 08:26 Labs: Laboratory Results - last 24 hr 03/08/18 03/08/18 03/08/18 10:00 17:15 19:31 WBC RBC Hgb 12.5 Hct 37.1 MCV MCH MCHC RDW Plt Count MPV Sodium Potassium Chloride Carbon Dioxide Anion Gap BUN Creatinine Estimated GFR POC Glucose 91 Random Glucose Hemoglobin A1c 6.1 H Calcium Total Bilirubin AST ALT Alkaline Phosphatase Total Protein Albumin Stl C.difficile DNA Amp St C. diff Tox Epid 027 HIV 1&2 Ab/P24 Ag 4thGn 03/08/18 03/09/18 03/09/18 20:15 03:21 07:53 WBC RBC Hgb Hct MCV MCH MCHC RDW Plt Count MPV Sodium Potassium Chloride Carbon Dioxide Anion Gap BUN Creatinine Estimated GFR POC Glucose 110 110 Random Glucose Hemoglobin A1c Calcium Total Bilirubin AST ALT Alkaline Phosphatase Total Protein Albumin Stl C.difficile DNA Amp Negative St C. diff Tox Epid 027 Negative HIV 1&2 Ab/P24 Ag 4thGn 03/09/18 03/09/18 03/09/18 08:26 08:26 11:24 WBC 4.8 RBC 4.15 Hgb 12.9 Hct 37.8 MCV 91.2 MCH 31.0 MCHC 34.1 RDW 14.9 Plt Count 109 L MPV 7.5 Sodium 140 Potassium 3.4 L Chloride 106 Carbon Dioxide 28.2 Anion Gap 6 BUN 9 Creatinine 0.80 Estimated GFR 72 L POC Glucose Random Glucose 111 H Hemoglobin A1c Calcium 8.2 L Total Bilirubin 1.3 H AST 66 H ALT 61 H Alkaline Phosphatase 105 Total Protein 6.7 D Albumin 2.8 L D Stl C.difficile DNA Amp St C. diff Tox Epid 027 HIV 1&2 Ab/P24 Ag 4thGn Nonreactive - Imaging Chest X-Ray 03/07/18 07:04 CONCLUSION: No acute cardiopulmonary abnormality is identified. Assessment and Plan - Plan ESBL E.coli UTI vs colonization Abnormal UA but ? collection issue COPD Current smoker continues to smoke despite counseling. Falls ? Alcohol related. Recs: DC Ceftriaxone IV Observe off antibiotics unless signs of sepsis/infection such as fever, increase in WBC or change in condition. Repeat UA straight cath. If UA from straight cath is positive will consider if needs treatment otherwise continue to observe off antibiotics. Contact isolation for ESBL while in hospital per policy. Follow cultures Follow clinical course. Check Vit B12 Consider adding Vit B12 and thiamine as supplement given falls. Possible alcohol induced neuropathy or DM neuropathy. Doubt falls are related to UTI belkis in absence of Urinary symptoms or signs of infection. dg NAVARRO
--- NOTE | 2018-03-09 20:55 | US ---
EXAM DATE: 03/09/2018 8:36 PM EST AGE/SEX: 62 years / Female INDICATIONS: Abdominal pain. CLINICAL DATA: This is the patient's initial encounter. Patient reports that signs and symptoms have been present for 1 day and indicates a pain score of 3/10. MEDICAL/SURGICAL HISTORY: Chronic obstructive pulmonary disease. Asthma. High blood pressure. Hysterectomy. Cholecystectomy. COMPARISON: [facility] [place], CT ABDOMEN & PELVIS W/O CONTRAST, 04/14/2017. [facility] [place], CT ABDOMEN & PELVIS W/O CONT RAST, 07/08/2015. . MEASUREMENTS: Liver:__ 15.9 cm. Common Bile Duct:__ 3mm. Right Kidney:__ 11.3 x 5.2 x 4.4 cm. FINDINGS: Liver: Normal echogenicity without focal lesion or ductal dilatation. Portal Vein: Hepatopedal flow seen in portal vein. Common Duct: No intraluminal mass or stone visualized. Gallbladder: Surgically absent. Pancreas: The visualized portions are within normal limits Right Kidney: Normal echogenicity and cortical thickness. No mass or hydronephrosis. Other: The spleen contains multiple cystic areas with the largest measuring approximately 2.7 and 1. 8 cm. These were documented on the prior 2 examinations and do not appear to have significantly de la o ed. CONCLUSION: 1. No acute finding is identified to explain the abdominal pain. 2. Stable nonspecific cystic lesions within the spleen. However, the lack of significant change sinc e July 2015 is consistent with a benign process. Electronically signed by: Jared Healy MD 03/09/2018 8:54 PM EST
[2018-03-10] MEDS: LORazepam 1 MG Tablet PO SCH ×5 (00:09→21:00)
[2018-03-10] MEDS: Sod Chloride 0.9% Inj 1,000 ML IV.CONT SCH ×3 (00:09→20:55)
[2018-03-10 08:21] LABS: Baso % (Auto) 0.3 % (0.0-2.0); Eos # (Auto) 0.1 th/mm3 (0.0-0.4); Eos % (Auto) 1.7 % (0.0-4.0); Hematocrit 37.5 % (35.0-46.0); Hemoglobin 12.5 gm/dL (11.6-15.3); Lymph # (Auto) 0.8 th/mm3 (1.0-4.8); Lymph % (Auto) 15.7 % (9.0-44.0); Mean Corpuscular HGB Conc 33.4 % (32.0-36.0); Mean Corpuscular Volume 92.7 fL (80.0-100.0); Mean Platelet Volume 7.9 fL (7.0-11.0); Mono # (Auto) 0.6 th/mm3 (0.0-0.9); Mono % (Auto) 12.7 % (0.0-8.0); Neut # (Auto) 3.4 th/mm3 (1.8-7.7); Neut % (Auto) 69.6 % (16.0-70.0); Platelet Count 89 th/mm3 (150-450); Red Blood Count 4.05 mil/mm3 (4.00-5.30); Red Cell Distribution Width 15.2 % (11.6-17.2); White Blood Count 4.9 th/mm3 (4.0-11.0)
[2018-03-10 08:33] LABS: Alanine Aminotransferase 55 U/L (10-53); Albumin 2.5 g/dL (3.4-5.0); Anion Gap 5 meq/L (5-15); Aspartate Aminotransferase 57 U/L (15-37); Blood Urea Nitrogen 8 mg/dL (7-18); Calcium 7.7 mg/dL (8.5-10.1); Carbon Dioxide 28.9 meq/L (21.0-32.0); Chloride 106 meq/L (98-107); Glomerular Filtration Rate Greater Than 89 mL/min (>89); Glucose,Random 93 mg/dL (74-106); Potassium 3.4 meq/L (3.5-5.1); Sodium 140 meq/L (136-145)
[2018-03-10 08:34] LABS: Alkaline Phosphatase 94 U/L (45-117); Total Protein 6.4 g/dL (6.4-8.2)
[2018-03-10] MEDS: Insulin NovoLOG Aspart Correctional Sugar Inj SQ SCH ×4 (09:30→20:56)
[2018-03-10] MEDS: Senna/Docusate Sodium 8.6/50 MG Tablet PO SCH ×2 (09:53→20:58)
[2018-03-10] MEDS: Lisinopril 10 MG Tablet PO SCH (09:57)
[2018-03-10] MEDS ORDERED: Loperamide 2 MG Capsule PO PRN (10:06)
--- NOTE | 2018-03-10 10:10 | P.PNFP ---
Subjective Interval history: Patient seen and examined at bedside this morning. She continues to complain of body aches all over. She continues to complain about her productive cough but has been denying treatments because the treatment makes her cough and she becomes incontinent of urine and feces. She says that it is embarrassing. When inquired about her reasoning for coming to the hospital, she states that she came with plans to become sober. Motivated patient on understanding her medical course. She understands that her withdrawal will be challenging. Was very tearful during her conversation, states that she has a lot going on in her life since the of her . States that she feels depressed but denies any suicidal or homicidal ideations. Is willing to speak to someone during her hospital course. She denies any chest pain or leg pain or problems with urination or defecation today. Page sent out to residents about patient scoring high on CIWA protocol with a score of 20 due to patient endorsing auditory hallucinations. Patient has been scoring low during the past couple of days with a score of 8 and 0. Patient was educated about CIWA protocol and the scoring guidelines earlier that morning by supervising attending. Residents responded and arrived at bedside, patient was sleeping comfortably in bed. No tremors visible. Vital signs stable. <Carey Deal - 03/10/18 12:01> Results - Labs Result diagrams: 03/10/18 07:25 03/10/18 07:25 <Jami Beckford - 03/10/18 17:25> Abnormal lab results 03/09/18 03/10/18 03/10/18 Range/Units 14:05 07:25 07:25 Plt Count 89 L (150-450) th/mm3 Dale % (Auto) 12.7 H (0.0-8.0) % Lymph # (Auto) 0.8 L (1.0-4.8) th/mm3 Potassium 3.4 L (3.5-5.1) meq/L POC Glucose (68-110) mg/dl Calcium 7.7 L (8.5-10.1) mg/dL AST 57 H (15-37) U/L ALT 55 H (10-53) U/L Albumin 2.5 L (3.4-5.0) g/dL Urine Clarity Hazy H (Clear) Urine Mucus Few H (Occasional) /lpf 03/10/18 Range/Units 12:01 Plt Count (150-450) th/mm3 Dale % (Auto) (0.0-8.0) % Lymph # (Auto) (1.0-4.8) th/mm3 Potassium (3.5-5.1) meq/L POC Glucose 123 H (68-110) mg/dl Calcium (8.5-10.1) mg/dL AST (15-37) U/L ALT (10-53) U/L Albumin (3.4-5.0) g/dL Urine Clarity (Clear) Urine Mucus (Occasional) /lpf Short CBC 03/10/18 Range/Units 07:25 WBC 4.9 (4.0-11.0) th/mm3 Hgb 12.5 (11.6-15.3) gm/dL Hct 37.5 (35.0-46.0) % Plt Count 89 L (150-450) th/mm3 BMP 03/10/18 07:25 Sodium 140 Potassium 3.4 L Chloride 106 Carbon Dioxide 28.9 BUN 8 Creatinine 0.65 Calcium 7.7 L Liver Function 03/10/18 Range/Units 07:25 Total Bilirubin 0.8 (0.2-1.0) mg/dL AST 57 H (15-37) U/L ALT 55 H (10-53) U/L Alkaline Phosphatase 94 (45-117) U/L Albumin 2.5 L (3.4-5.0) g/dL Urine 03/09/18 Range/Units 14:05 Urine Color [place] (Yellw/Straw) Urine Clarity Hazy H (Clear) Urine pH 7.0 (5.0-8.5) Ur Specific [place] 1.023 (1.002-1.035) Urine Protein Negative (Neg-Trace) mg/dL Urine Glucose (UA) Negative (Negative) mg/dL <Jami Beckford - 03/10/18 17:25> Abnormal lab results 03/08/18 03/10/18 03/10/18 Range/Units 10:00 07:25 07:25 Plt Count 89 L (150-450) th/mm3 Dale % (Auto) 12.7 H (0.0-8.0) % Lymph # (Auto) 0.8 L (1.0-4.8) th/mm3 Potassium 3.4 L (3.5-5.1) meq/L Hemoglobin A1c 6.1 H (4.3-6.0) % Calcium 7.7 L (8.5-10.1) mg/dL AST 57 H (15-37) U/L ALT 55 H (10-53) U/L Albumin 2.5 L (3.4-5.0) g/dL Short CBC 03/10/18 Range/Units 07:25 WBC 4.9 (4.0-11.0) th/mm3 Hgb 12.5 (11.6-15.3) gm/dL Hct 37.5 (35.0-46.0) % Plt Count 89 L (150-450) th/mm3 BMP 03/10/18 07:25 Sodium 140 Potassium 3.4 L Chloride 106 Carbon Dioxide 28.9 BUN 8 Creatinine 0.65 Calcium 7.7 L Liver Function 03/10/18 Range/Units 07:25 Total Bilirubin 0.8 (0.2-1.0) mg/dL AST 57 H (15-37) U/L ALT 55 H (10-53) U/L Alkaline Phosphatase 94 (45-117) U/L Albumin 2.5 L (3.4-5.0) g/dL <Carey Deal - 03/10/18 10:10> - Imaging Impressions Liver Ultrasound 03/09/18 00:00 CONCLUSION: 1. No acute finding is identified to explain the abdominal pain. 2. Stable nonspecific cystic lesions within the spleen. However, the lack of significant change since July 2015 is consistent with a benign process. Chest X-Ray 03/10/18 00:00 CONCLUSION: 1. Cardiomegaly with subtle positive fluid balance. <Jami Beckford - 03/10/18 17:25> Impressions Liver Ultrasound 03/09/18 00:00 CONCLUSION: 1. No acute finding is identified to explain the abdominal pain. 2. Stable nonspecific cystic lesions within the spleen. However, the lack of significant change since July 2015 is consistent with a benign process. <Carey Deal - 03/10/18 10:10> Physical Exam Vital signs: Vital Signs 03/09/18 20:00 03/10/18 00:00 03/10/18 03:11 Temperature 99.5 F 98.0 F Pulse Rate 95 H 77 78 Respiratory Rate 20 20 Blood Pressure 165/72 H 142/67 H Pulse Oximetry 95 98 03/10/18 04:00 03/10/18 08:00 03/10/18 09:00 Temperature 98.0 F 98.2 F 98.5 F Pulse Rate 69 69 69 Respiratory Rate 18 20 20 Blood Pressure 127/61 128/59 L 108/59 L Pulse Oximetry 98 98 99 03/10/18 12:00 Temperature 98.5 F Pulse Rate 78 Respiratory Rate 20 Blood Pressure 177/79 H Pulse Oximetry 99 Intake & Output 03/09/18 03/10/18 03/10/18 18:59 06:59 18:59 Intake Total 340 / 340 Balance 340 / 340 Weight 72.5 kg Intake: IV 100 / 100 Rocephin Inj 1,000 MG In NS Inj 100 / 100 100 ML @ 200 mls/hr IV.SIG Q24H [facility] Rx#:[id number] Oral 240 / 240 Other: # Voids 3 Date of Last Bowel Movement 03/08/18 03/09/18 # Bowel Movements 1 # Incontinent Bowel Movements 1 <Jami Beckford R - 03/10/18 17:25> Vital Signs 03/09/18 11:43 03/09/18 11:56 03/09/18 16:00 Temperature 98.4 F 99.1 F Pulse Rate 86 98 H Respiratory Rate 16 20 Blood Pressure 169/81 H 152/76 H Pulse Oximetry 95 95 99 03/09/18 20:00 03/10/18 00:00 03/10/18 03:11 Temperature 99.5 F 98.0 F Pulse Rate 95 H 77 78 Respiratory Rate 20 20 Blood Pressure 165/72 H 142/67 H Pulse Oximetry 95 98 03/10/18 04:00 Temperature 98.0 F Pulse Rate 69 Respiratory Rate 18 Blood Pressure 127/61 Pulse Oximetry 98 Intake & Output 03/09/18 03/10/18 03/10/18 18:59 06:59 18:59 Intake Total 340 / 340 Balance 340 / 340 Weight 72.5 kg Intake: IV 100 / 100 Rocephin Inj 1,000 MG In NS Inj 100 / 100 100 ML @ 200 mls/hr IV.SIG Q24H [facility] Rx#:[id number] Oral 240 / 240 Other: # Voids 3 Date of Last Bowel Movement 03/08/18 03/09/18 # Bowel Movements 1 # Incontinent Bowel Movements 1 <Carey Deal - 03/10/18 10:10> Narrative: GENERAL: Well-nourished well-developed, not in acute distress SKIN: Cool and dry, no generalized rash. Hoarse voice (smoking related) HEAD: Atraumatic. Normocephalic. No temporal or scalp tenderness. ENT: Nothing abnormal detected NECK: Trachea midline. Supple, nontender, no meningeal signs. CARDIOVASCULAR: Regular rate and rhythm, S1 and S2 appreciated. No murmurs, rubs or gallops. RESPIRATORY: Expiratory wheezing auscultated bilaterally throughout all lung rojas. Coarse breath sounds. GASTROINTESTINAL: Abdomen soft nontender. MUSCULOSKELETAL: Extremities without clubbing, cyanosis. 5x1 cm healing dark bruise on the L lower back. NEUROLOGICAL: Alert oriented 3. Nonfocal. Psych flat affect, tearful, poor judgment, poor insight. IV line sites ok. <Carey Deal - 03/10/18 12:12> Assessment and Plan - Assessment (1) Alcohol withdrawal Code(s): F10.239 - Alcohol dependence with withdrawal, unspecified Status: Acute (2) COPD (chronic obstructive pulmonary disease) Code(s): J44.9 - Chronic obstructive pulmonary disease, unspecified Status: Acute (3) Positive hepatitis test Code(s): R76.8 - Other specified abnormal immunological findings in serum Status: Acute (4) UTI (urinary tract infection) Code(s): N39.0 - Urinary tract infection, site not specified Status: Acute (5) Black stools Code(s): K92.1 - Melena Status: Acute (6) Neck pain Code(s): M54.2 - Cervicalgia Status: Acute (7) Hypertensive urgency Code(s): I16.0 - Hypertensive urgency Status: Acute (8) History of DVT (deep vein thrombosis) Code(s): Z86.718 - Personal history of other venous thrombosis and embolism Status: Acute (9) Nausea & vomiting Code(s): R11.2 - Nausea with vomiting, unspecified Status: Acute (10) Diabetes Code(s): E11.9 - Type 2 diabetes mellitus without complications Status: Acute (11) Tobacco dependence Code(s): F17.200 - Nicotine dependence, unspecified, uncomplicated Status: Acute (12) Nutrition, metabolism, and development symptoms Code(s): R63.8 - Other symptoms and signs concerning food and fluid intake Status: Acute <Jami Beckford - 03/10/18 17:25> (1) Alcohol withdrawal Code(s): F10.239 - Alcohol dependence with withdrawal, unspecified Status: Acute Plan: No tremors today at bedside. A&O, Continue current plan of scheduled Ativan 1 mg p.o. every 6 hours with CIWA protocol for prn coverage for this AM. Consider changing to scheduled Ativan every 8 hours later this afternoon. Avoiding opiates for pain as we did not want any other sedating medications on board at this time. Patient complains of frequent diarrhea. Imodium added. Psychology alcohol evaluation consulted. For recent CIWA score of 20: Unsure if this is pseudoseizure or actual alcohol withdrawal in nature. Concerning since patient does have a past history of seizures with alcohol withdrawal. 2 mg of Ativan not given for this score due to patient resting comfortably with no tremors or seizure activity. Vital signs stable. Patient will continue with her scheduled dose of p.o. Ativan and will receive her next dose at noon today. (2) COPD (chronic obstructive pulmonary disease) Code(s): J44.9 - Chronic obstructive pulmonary disease, unspecified Status: Acute Plan: DUONEBS scheduled, however patient is refusing breathing treatments. Will DC DuoNeb treatments. Spiriva added. Repeat chest x-ray. (3) Positive hepatitis test Code(s): R76.8 - Other specified abnormal immunological findings in serum Status: Acute Plan: Patient positive for hepatitis B and C Quantitative assays pending Liver ultrasound shows: Unremarkable. (4) UTI (urinary tract infection) Code(s): N39.0 - Urinary tract infection, site not specified Status: Acute Plan: Started on Rocephin for UTI, cultures now growing ESBL E. coli. ID recommends to DC Rocephin and await repeat urine analysis. Patient denies any dysuria but confirms urinary incontinence this morning. Afebrile. Vital signs stable. CBC stable. (5) Black stools Code(s): K92.1 - Melena Status: Acute Plan: Patient reports last few days of black loose stools. She states is tarry. No h /o GI bleed. Hemoccult and C. difficile negative, continue to monitor (6) Neck pain Code(s): M54.2 - Cervicalgia Status: Acute Plan: Exam is benign. Patient likes has a degenerative process. Patient states she is allergic to all NSAIDs Avoiding opiates as above K thermia added. (7) Hypertensive urgency Code(s): I16.0 - Hypertensive urgency Status: Acute Plan: BP improving. Likely a secondary to the acute ETOH withdrawal. Continue current treatment plan. (8) History of DVT (deep vein thrombosis) Code(s): Z86.718 - Personal history of other venous thrombosis and embolism Status: Acute Plan: Patient with reported history of a DVT states that she was previously prescribed Xarelto No calf tenderness or positive Homans sign on physical exam Lovenox for DVT prophylaxis and will continue to monitor (9) Nausea & vomiting Code(s): R11.2 - Nausea with vomiting, unspecified Status: Acute Plan: Patient reporting significant nausea vomiting prior to arrival Continue Zofran, no electrolyte abnormalities on admission No vomiting appreciated. Patient has been asked to show any vomit to the nurse (10) Diabetes Code(s): E11.9 - Type 2 diabetes mellitus without complications Status: Acute Plan: Reportedly has a history of diabetes and been prescribed Lantus and Humulin sliding scale Low-dose sliding scale (11) Tobacco dependence Code(s): F17.200 - Nicotine dependence, unspecified, uncomplicated Status: Acute Plan: nicotine patch (12) Nutrition, metabolism, and development symptoms Code(s): R63.8 - Other symptoms and signs concerning food and fluid intake Status: Acute Plan: Regular diet No electrolyte abnormalities on admission Lovenox for DVT prophylaxis <Carey Deal - 03/10/18 14:28> - Assessment and Plan 62-year-old female with a history of COPD, diabetes, history of DVT, CAD, history of alcohol abuse presented to the ED with multiple complaints including nausea vomiting, falling recently, and alcohol withdrawal. Band of UTI on admission and is now growing ESBL E. coli. Consulted ID Improved since admission - no sign of seizures and patient remains alert and oriented. <Carey Deal - 03/10/18 12:01> - Attending Attestation Patient seen and examined and dw the resident team. Agree with the assessment and plan. Had long discussion with the patient that she has no acute pain. The pain she complains of is from chronic degenerative changes in her neck which she is aware of. I see no medical need to initiate opiates in this patient at this time for her chronic neck pain. She is much improved from signs of ETOH withdrawal. She has virtually no tremors, she is not agitated and her vitals have improved. The patient strongly desires IV benzos but appears to be adequately managed with PO benzo for withdrawal. Monitor CIWA scores closely. Nursing notified to contact MD if CIWA score become very high. A lot of her issues appear to be complicated by depression, grief and anxiety. Will ask for compliance tester consult and psychotherapy. <Jami Beckford R - 03/10/18 17:25> <Carey Deal - Last Filed: 03/10/18 14:28> (1) Alcohol withdrawal Qualifiers: Complication of substance-induced condition: with unspecified complication Qualified Code(s): F10.239 - Alcohol dependence with withdrawal, unspecified <Jami Beckford R - Last Filed: 03/10/18 17:25> (1) Alcohol withdrawal Qualifiers: Complication of substance-induced condition: with unspecified complication Qualified Code(s): F10.239 - Alcohol dependence with withdrawal, unspecified <Carey Deal - Last Filed: 03/10/18 14:28> (1) Alcohol withdrawal Qualifiers: Complication of substance-induced condition: with unspecified complication Qualified Code(s): F10.239 - Alcohol dependence with withdrawal, unspecified <Jami Beckford - Last Filed: 03/10/18 17:25> (1) Alcohol withdrawal Qualifiers: Complication of substance-induced condition: with unspecified complication Qualified Code(s): F10.239 - Alcohol dependence with withdrawal, unspecified
[2018-03-10] MEDS: Sertraline 50 MG Tablet PO SCH ×2 (12:08→12:12)
[2018-03-10] MEDS: Enoxaparin Inj 40 MG/0.4 ML Syringe SQ SCH (12:08)
--- NOTE | 2018-03-10 13:30 | XR ---
EXAM DATE: 03/10/2018 1:21 PM EST AGE/SEX: 62 years / Female INDICATIONS: . Shortness of breath. CLINICAL DATA: This is the patient's subsequent encounter. Patient reports that signs and symptoms h ave been present for 1 week and indicates a pain score of 7/10. MEDICAL/SURGICAL HISTORY: Chronic obstructive pulmonary disease. Asthma. Hypertension. Hyster ectomy. Cholecystectomy. COMPARISON: [facility] [place], CHEST 1V SINGLE AP, 03/07/2018. . FINDINGS: No significant new focal pleural or parenchymal opacities. Cardiac silhouette remains enlarged. Centr al probably vascularity is slightly indistinct. Osseous structures are intact. CONCLUSION: 1. Cardiomegaly with subtle positive fluid balance. Electronically signed by: Reyes Madrid MD 03/10/2018 1:29 PM EST
--- NOTE | 2018-03-10 14:07 | P.PNID ---
Subjective Remarks: is a 62y/o CF who is not very forth coming with history. Dw RN patient keeps to herself and mostly communicates for pain medications. Most of the history was obtained by review of medical records. Patient's past medical history significant for COPD, coronary artery disease, alcohol abuse, diabetes and hypertension. With this background patient presents to the emergency department with falls as well as chest pain. Patient is reported to others history of alcohol withdrawal seizures in the past. It appears that upon performing a review of systems she was positive for almost all symptoms. Patient had reported no urinary symptoms on admission. She had no fevers, chills. Family Hx: CAD, mother of non-hodgkins lymphoma Social: Lives alone in a hotel room, 5 cig per day, no substance abuse, alcohol as above Infectious Disease consulted for evaluation and Mment of ESBL E.coli UTI. Overnight events reviewed No fever No rash No diarrhea Awake, alert Complains of left shoulder pain s/p Xray report pending. UA straight cath not done as patient allergic to iodine. RN and zinc furnace charger instructed to call occupational health nursing director to ask for alternative way to obtain sterile collection of urine. Antibiotics: None Lines: Lines ok Past Medical History: reviewed Allergies/Adverse Reactions: Allergies diclofenac Allergy (Severe, Verified 03/02/18 08:36) HAS ULCERS etodolac Allergy (Severe, Verified 03/02/18 08:36) HAS ULCERS flurbiprofen Allergy (Severe, Verified 03/02/18 08:36) HAS ULCERS indomethacin Allergy (Severe, Verified 03/02/18 08:36) HAS ULCERS iodine Allergy (Severe, Verified 03/02/18 08:36) Swelling ketoprofen Allergy (Severe, Verified 03/02/18 08:36) Hives ketorolac Allergy (Severe, Verified 03/02/18 08:36) Hives naproxen Allergy (Severe, Verified 03/02/18 08:36) Hives oxaprozin Allergy (Severe, Verified 03/02/18 08:36) Hives potassium iodide Allergy (Severe, Verified 03/02/18 08:36) Hives povidone-iodine Allergy (Severe, Verified 07/31/17 13:30) Swelling sodium iodide Allergy (Severe, Verified 07/31/17 13:30) Swelling sodium iodide Allergy (Severe, Verified 07/31/17 13:30) Swelling Sulfa (Sulfonamide Antibiotics) Allergy (Severe, Verified 07/31/17 13:30) HIVES AND RASH acetaminophen Adverse Reaction (Intermediate, Verified 03/02/18 08:36) Hives Objective Vital Signs 03/09/18 16:00 03/09/18 20:00 03/10/18 00:00 Temperature 99.1 F 99.5 F 98.0 F Pulse Rate 98 H 95 H 77 Respiratory Rate 20 20 20 Blood Pressure 152/76 H 165/72 H 142/67 H Pulse Oximetry 99 95 98 03/10/18 03:11 03/10/18 04:00 03/10/18 08:00 Temperature 98.0 F 98.2 F Pulse Rate 78 69 69 Respiratory Rate 18 20 Blood Pressure 127/61 128/59 L Pulse Oximetry 98 98 03/10/18 09:00 03/10/18 12:00 Temperature 98.5 F 98.5 F Pulse Rate 69 78 Respiratory Rate 20 20 Blood Pressure 108/59 L 177/79 H Pulse Oximetry 99 99 Intake & Output 03/09/18 03/10/18 03/10/18 18:59 06:59 18:59 Intake Total 340 / 340 Balance 340 / 340 Weight 72.5 kg Intake: IV 100 / 100 Rocephin Inj 1,000 MG In NS Inj 100 / 100 100 ML @ 200 mls/hr IV.SIG Q24H [facility] Rx#:[id number] Oral 240 / 240 Other: # Voids 3 Date of Last Bowel Movement 03/08/18 03/09/18 # Bowel Movements 1 # Incontinent Bowel Movements 1 03/07/18 12:40 Blood - Peripheral Aerobic Blood Culture - Preliminary No growth in 3 days 03/07/18 12:40 Blood - Peripheral Anaerobic Blood Culture - Preliminary No growth in 3 days 03/07/18 12:48 Blood - Peripheral Aerobic Blood Culture - Preliminary No growth in 3 days 03/07/18 12:48 Blood - Peripheral Anaerobic Blood Culture - Preliminary No growth in 3 days 03/07/18 07:59 Clean Catch Urine Urine Culture - Final Escherichia coli ESBL positive 03/09/18 03:21 Stool Stool Occult Blood (JEF) - Final Hemoccult negative Lab - Hematology Results 03/08/18 03/09/18 03/10/18 19:31 08:26 07:25 WBC 4.8 4.9 RBC 4.15 4.05 Hgb 12.5 12.9 12.5 Hct 37.1 37.8 37.5 MCV 91.2 92.7 MCH 31.0 31.0 MCHC 34.1 33.4 RDW 14.9 15.2 Plt Count 109 L 89 L MPV 7.5 7.9 Prelim Diff (Auto) Slide review pending Neut % (Auto) 69.6 Lymph % (Auto) 15.7 Benzie % (Auto) 12.7 H Eos % (Auto) 1.7 Baso % (Auto) 0.3 Neut # (Auto) 3.4 Lymph # (Auto) 0.8 L Benzie # (Auto) 0.6 Eos # (Auto) 0.1 Baso # (Auto) 0.0 WBC Differential . Diff Scan Auto diff confirmed Differential Comment . Lab - Chemistry Results 03/08/18 03/08/18 03/08/18 10:00 17:15 20:15 Sodium Potassium Chloride Carbon Dioxide Anion Gap BUN Creatinine Estimated GFR POC Glucose 91 110 Random Glucose Hemoglobin A1c 6.1 H Calcium Total Bilirubin AST ALT Alkaline Phosphatase Total Protein Albumin Vitamin B12 03/09/18 03/09/18 03/09/18 07:53 08:26 20:36 Sodium 140 Potassium 3.4 L Chloride 106 Carbon Dioxide 28.2 Anion Gap 6 BUN 9 Creatinine 0.80 Estimated GFR 72 L POC Glucose 110 109 Random Glucose 111 H Hemoglobin A1c Calcium 8.2 L Total Bilirubin 1.3 H AST 66 H ALT 61 H Alkaline Phosphatase 105 Total Protein 6.7 D Albumin 2.8 L D Vitamin B12 03/09/18 03/10/18 03/10/18 21:20 07:25 08:21 Sodium 140 Potassium 3.4 L Chloride 106 Carbon Dioxide 28.9 Anion Gap 5 BUN 8 Creatinine 0.65 Estimated GFR Greater than 89 POC Glucose 97 Random Glucose 93 Hemoglobin A1c Calcium 7.7 L Total Bilirubin 0.8 AST 57 H ALT 55 H Alkaline Phosphatase 94 Total Protein 6.4 Albumin 2.5 L Vitamin B12 303 03/10/18 12:01 Sodium Potassium Chloride Carbon Dioxide Anion Gap BUN Creatinine Estimated GFR POC Glucose 123 H Random Glucose Hemoglobin A1c Calcium Total Bilirubin AST ALT Alkaline Phosphatase Total Protein Albumin Vitamin B12 Imaging: ITS Impressions Liver Ultrasound 03/09/18 00:00 CONCLUSION: 1. No acute finding is identified to explain the abdominal pain. 2. Stable nonspecific cystic lesions within the spleen. However, the lack of significant change since July 2015 is consistent with a benign process. Chest X-Ray 03/10/18 00:00 CONCLUSION: 1. Cardiomegaly with subtle positive fluid balance. Physical Exam: GENERAL: Well-nourished well-developed, not in acute distress SKIN: Cool and dry, no generalized rash. Hoarse voice (smoking related) HEAD: Atraumatic. Normocephalic. No temporal or scalp tenderness. EYES: Pupils equal round and reactive. Scleral icterus. No injection or drainage. No petechia ENT: Nothing abnormal detected NECK: Trachea midline. Supple, nontender, no meningeal signs. CARDIOVASCULAR: HS audible. RESPIRATORY: Clear to auscultation bilaterally. GASTROINTESTINAL: Abdomen soft nontender. MUSCULOSKELETAL: Extremities without clubbing, cyanosis. NEUROLOGICAL: Alert oriented 3. Nonfocal. Psych cooperative IV line sites ok. Assessment and Plan - Plan ESBL E.coli UTI vs colonization Abnormal UA but ? collection issue COPD Current smoker continues to smoke despite counseling. Falls ? Alcohol related. Recs: Observe off antibiotics unless signs of sepsis/infection such as fever, increase in WBC or change in condition. Repeat UA straight cath. If UA from straight cath is positive will consider if needs treatment otherwise continue to observe off antibiotics. Patient allergic to iodine and waiting on nursing education educator to look into alternatives. I would accept mild soap and water cleansing prior to straight cath. Contact isolation for ESBL while in hospital per policy. Follow cultures Follow clinical course. follow B12 and other levels.
[2018-03-10 14:26] LABS: Bilirubin,Urine Negative (Negative); Clarity,Urine Hazy (Clear); Color,Urine Amber (Yellw/Straw); Glucose,Urine (UA) Negative (Negative); Leukocyte Esterase,Urine Negative (Negative); Mucus,Urine Few /lpf (Occasional); Nitrite,Urine Negative (Negative); Specific Gravity,Urine 1.023 (1.002-1.035); Squamous Epithelial Cell,Urine 1 /hpf (0-5)
[2018-03-10] MEDS: Tiotropium Bromide 18 MCG/ACT Inhaler INH SCH (15:44)
--- NOTE | 2018-03-10 17:19 | P.PNADD ---
Addendum to Inpatient Note Reason for Addendum: Additional Documentation Additional information: Reviewed straight cath UA did not reflex to culture. Would continue observing off antibiotics. Will sign off please call ID applications development analyst if any change in clinical condition or questions.
[2018-03-11] MEDS: LORazepam 1 MG Tablet PO SCH (05:51)
[2018-03-11] MEDS: Sod Chloride 0.9% Inj 1,000 ML IV.CONT SCH ×2 (05:51→18:45)
[2018-03-11 07:57] LABS: Baso % (Auto) 0.5 % (0.0-2.0); Eos # (Auto) 0.1 th/mm3 (0.0-0.4); Eos % (Auto) 1.9 % (0.0-4.0); Hematocrit 35.6 % (35.0-46.0); Hemoglobin 12.2 gm/dL (11.6-15.3); Lymph # (Auto) 0.8 th/mm3 (1.0-4.8); Lymph % (Auto) 13.6 % (9.0-44.0); Mean Corpuscular HGB Conc 34.3 % (32.0-36.0); Mean Corpuscular Hemoglobin 31.2 pg (27.0-34.0); Mean Platelet Volume 7.9 fL (7.0-11.0); Mono # (Auto) 0.7 th/mm3 (0.0-0.9); Mono % (Auto) 11.5 % (0.0-8.0); Neut # (Auto) 4.2 th/mm3 (1.8-7.7); Neut % (Auto) 72.5 % (16.0-70.0); Platelet Count 106 th/mm3 (150-450); Red Blood Count 3.91 mil/mm3 (4.00-5.30); Red Cell Distribution Width 15.1 % (11.6-17.2); White Blood Count 5.8 th/mm3 (4.0-11.0)
[2018-03-11 08:21] LABS: Calcium 8.2 mg/dL (8.5-10.1); Carbon Dioxide 28.2 meq/L (21.0-32.0); Potassium 3.3 meq/L (3.5-5.1)
[2018-03-11] MEDS: Senna/Docusate Sodium 8.6/50 MG Tablet PO SCH ×2 (08:55→21:16)
[2018-03-11] MEDS: Lisinopril 10 MG Tablet PO SCH (08:55)
[2018-03-11] MEDS: LORazepam 1 MG Tablet PO PRN ×4 (09:07→21:27)
[2018-03-11] MEDS: Tiotropium Bromide 18 MCG/ACT Inhaler INH SCH (09:07)
[2018-03-11] MEDS: Insulin NovoLOG Aspart Correctional Sugar Inj SQ SCH ×4 (09:12→22:42)
--- NOTE | 2018-03-11 10:23 | P.PNFP ---
Subjective Interval history: Patient seen and examined at bedside this morning. She says that she is tired because "there is no rest for the wicked". She still confirms a cough but was unable to answer many questions due to patient sleeping. She denies any chest pain, shortness of breath, abdominal pain, problems with urination or defecation. Says that she has visitors coming to visit her today. <ToyinCarey - 03/11/18 10:23> Results - Labs Result diagrams: 03/11/18 06:54 03/11/18 06:54 <Jami Beckford - 03/11/18 15:13> Abnormal lab results 03/10/18 03/11/18 03/11/18 Range/Units 18:55 06:54 06:54 RBC 3.91 L (4.00-5.30) mil/mm3 Plt Count 106 L (150-450) th/mm3 Neut % (Auto) 72.5 H (16.0-70.0) % Pickett % (Auto) 11.5 H (0.0-8.0) % Lymph # (Auto) 0.8 L (1.0-4.8) th/mm3 Potassium 3.3 L (3.5-5.1) meq/L POC Glucose 132 H (68-110) mg/dl Calcium 8.2 L (8.5-10.1) mg/dL 03/11/18 Range/Units 13:22 RBC (4.00-5.30) mil/mm3 Plt Count (150-450) th/mm3 Neut % (Auto) (16.0-70.0) % Pickett % (Auto) (0.0-8.0) % Lymph # (Auto) (1.0-4.8) th/mm3 Potassium (3.5-5.1) meq/L POC Glucose 153 H (68-110) mg/dl Calcium (8.5-10.1) mg/dL Short CBC 03/11/18 Range/Units 06:54 WBC 5.8 (4.0-11.0) th/mm3 Hgb 12.2 (11.6-15.3) gm/dL Hct 35.6 (35.0-46.0) % Plt Count 106 L (150-450) th/mm3 BMP 03/11/18 06:54 Sodium 139 Potassium 3.3 L Chloride 106 Carbon Dioxide 28.2 BUN 9 Creatinine 0.67 Calcium 8.2 L <Jami Beckford R - 03/11/18 15:13> Abnormal lab results 03/09/18 03/10/18 03/10/18 Range/Units 14:05 12:01 18:55 RBC (4.00-5.30) mil/mm3 Plt Count (150-450) th/mm3 Neut % (Auto) (16.0-70.0) % Pickett % (Auto) (0.0-8.0) % Lymph # (Auto) (1.0-4.8) th/mm3 Potassium (3.5-5.1) meq/L POC Glucose 123 H 132 H (68-110) mg/dl Calcium (8.5-10.1) mg/dL Urine Clarity Hazy H (Clear) Urine Mucus Few H (Occasional) /lpf 03/11/18 03/11/18 Range/Units 06:54 06:54 RBC 3.91 L (4.00-5.30) mil/mm3 Plt Count 106 L (150-450) th/mm3 Neut % (Auto) 72.5 H (16.0-70.0) % Pickett % (Auto) 11.5 H (0.0-8.0) % Lymph # (Auto) 0.8 L (1.0-4.8) th/mm3 Potassium 3.3 L (3.5-5.1) meq/L POC Glucose (68-110) mg/dl Calcium 8.2 L (8.5-10.1) mg/dL Urine Clarity (Clear) Urine Mucus (Occasional) /lpf Short CBC 03/11/18 Range/Units 06:54 WBC 5.8 (4.0-11.0) th/mm3 Hgb 12.2 (11.6-15.3) gm/dL Hct 35.6 (35.0-46.0) % Plt Count 106 L (150-450) th/mm3 [facility] 03/11/18 06:54 Sodium 139 Potassium 3.3 L Chloride 106 Carbon Dioxide 28.2 BUN 9 Creatinine 0.67 Calcium 8.2 L Urine 03/09/18 Range/Units 14:05 Urine Color [place] (Yellw/Straw) Urine Clarity Hazy H (Clear) Urine pH 7.0 (5.0-8.5) Ur Specific [place] 1.023 (1.002-1.035) Urine Protein Negative (Neg-Trace) mg/dL Urine Glucose (UA) Negative (Negative) mg/dL <Mary Deala - 03/11/18 10:23> - Imaging Impressions Chest X-Ray 03/10/18 00:00 CONCLUSION: 1. Cardiomegaly with subtle positive fluid balance. <BriaclintCarey - 03/11/18 10:23> Physical Exam Vital signs: Vital Signs 03/10/18 16:00 03/10/18 20:00 03/11/18 00:00 Temperature 98.4 F 98.4 F 97.8 F Pulse Rate 82 83 76 Respiratory Rate 20 20 20 Blood Pressure 167/72 H 155/72 H 158/83 H Pulse Oximetry 98 98 99 Pulse Oximetry [Resting on Room Air] Pulse Oximetry [Resting with Oxygen] 03/11/18 03:56 03/11/18 04:00 03/11/18 08:00 Temperature 98 F 98.3 F Pulse Rate 77 69 Respiratory Rate 20 20 Blood Pressure 127/62 142/65 H Pulse Oximetry 100 93 L 95 Pulse Oximetry [Resting on Room Air] Pulse Oximetry [Resting with Oxygen] 03/11/18 08:50 03/11/18 08:55 03/11/18 13:25 Temperature 98.3 F Pulse Rate 75 Respiratory Rate 23 Blood Pressure 166/74 H Pulse Oximetry 94 L Pulse Oximetry [Resting on Room Air] 86 L Pulse Oximetry [Resting with Oxygen] 94 L Intake & Output 03/10/18 03/11/18 03/11/18 18:59 06:59 18:59 Intake Total 630 / 630 1000 / 1000 Balance 630 / 630 1000 / 1000 Weight 75.8 kg Intake: IV 1000 / 1000 NS Inj 1,000 ML @ 100 mls/hr IV 1000 / 1000 .CONT .Q10H JUANPABLO Rx#:[id number] Oral 480 / 480 Other 150 / 150 Other: # Voids 4 1 Date of Last Bowel Movement 03/09/18 <Jami Beckford 03/11/18 15:13> Vital Signs 03/10/18 12:00 03/10/18 16:00 03/10/18 20:00 Temperature 98.5 F 98.4 F 98.4 F Pulse Rate 78 82 83 Respiratory Rate 20 20 20 Blood Pressure 177/79 H 167/72 H 155/72 H Pulse Oximetry 99 98 98 03/11/18 00:00 03/11/18 03:56 03/11/18 04:00 Temperature 97.8 F 98 F Pulse Rate 76 77 Respiratory Rate 20 20 Blood Pressure 158/83 H 127/62 Pulse Oximetry 99 100 93 L 03/11/18 08:00 Temperature 98.3 F Pulse Rate 69 Respiratory Rate 20 Blood Pressure 142/65 H Pulse Oximetry 95 Intake & Output 03/10/18 03/11/18 03/11/18 18:59 06:59 18:59 Intake Total 630 / 630 1000 / 1000 Balance 630 / 630 1000 / 1000 Weight 75.8 kg Intake: IV 1000 / 1000 NS Inj 1,000 ML @ 100 mls/hr IV 1000 / 1000 .CONT .Q10H JUANPABLO Rx#:[id number] Oral 480 / 480 Other 150 / 150 Other: # Voids 4 1 <Carey Deal - 03/11/18 10:23> Narrative: GENERAL: Well-nourished well-developed, not in acute distress SKIN: Cool and dry, no generalized rash. Hoarse voice (smoking related) HEAD: Atraumatic. Normocephalic. No temporal or scalp tenderness. ENT: Nothing abnormal detected NECK: Trachea midline. Supple, nontender, no meningeal signs. CARDIOVASCULAR: Regular rate and rhythm, S1 and S2 appreciated. No murmurs, rubs or gallops. RESPIRATORY: Expiratory wheezing auscultated bilaterally throughout all lung rojas. Coarse breath sounds. GASTROINTESTINAL: Abdomen soft nontender. MUSCULOSKELETAL: Extremities without clubbing, cyanosis. 5x1 cm healing dark bruise on the L lower back. NEUROLOGICAL: Alert oriented 3. Nonfocal. Psych flat affect, poor judgment, poor insight. IV line sites ok. <Carey Deal - 03/11/18 10:23> Assessment and Plan - Assessment (1) Alcohol withdrawal Code(s): F10.239 - Alcohol dependence with withdrawal, unspecified Status: Acute (2) Depression Code(s): F32.9 - Major depressive disorder, single episode, unspecified Status : Acute (3) COPD (chronic obstructive pulmonary disease) Code(s): J44.9 - Chronic obstructive pulmonary disease, unspecified Status: Acute (4) Positive hepatitis test Code(s): R76.8 - Other specified abnormal immunological findings in serum Status: Acute (5) UTI (urinary tract infection) Code(s): N39.0 - Urinary tract infection, site not specified Status: Acute (6) Black stools Code(s): K92.1 - Melena Status: Acute (7) Neck pain Code(s): M54.2 - Cervicalgia Status: Acute (8) Hypertensive urgency Code(s): I16.0 - Hypertensive urgency Status: Acute (9) History of DVT (deep vein thrombosis) Code(s): Z86.718 - Personal history of other venous thrombosis and embolism Status: Acute (10) Nausea & vomiting Code(s): R11.2 - Nausea with vomiting, unspecified Status: Acute (11) Diabetes Code(s): E11.9 - Type 2 diabetes mellitus without complications Status: Acute (12) Tobacco dependence Code(s): F17.200 - Nicotine dependence, unspecified, uncomplicated Status: Acute (13) Nutrition, metabolism, and development symptoms Code(s): R63.8 - Other symptoms and signs concerning food and fluid intake Status: Acute <LetitiaclifJami R - 03/11/18 15:13> (1) Alcohol withdrawal Code(s): F10.239 - Alcohol dependence with withdrawal, unspecified Status: Acute Plan: Day 5 of withdrawal. No tremors today at bedside. A&O. DC Scheduled Ativan. CIWA protocol. CIWA scores have been stable overnight (3, 5 , 4) Avoiding opiates for pain as we did not want any other sedating medications on board at this time. Patient complains of frequent diarrhea. Imodium added. Psychology alcohol evaluation consulted. (2) Depression Code(s): F32.9 - Major depressive disorder, single episode, unspecified Status : Acute Plan: celexa added (3) COPD (chronic obstructive pulmonary disease) Code(s): J44.9 - Chronic obstructive pulmonary disease, unspecified Status: Acute Plan: DUONEBS scheduled, however patient is refusing breathing treatments. Will DC DuoNeb treatments. Spiriva added. Repeat chest x-ray. (4) Positive hepatitis test Code(s): R76.8 - Other specified abnormal immunological findings in serum Status: Acute Plan: Patient positive for hepatitis B and C Quantitative assays pending HIV negative. Liver ultrasound shows: Unremarkable. (5) UTI (urinary tract infection) Code(s): N39.0 - Urinary tract infection, site not specified Status: Acute Plan: Started on Rocephin for UTI, cultures now growing ESBL E. coli. ID recommends to DC Rocephin and await repeat urine analysis. Repeat UA unremarkable. Afebrile. Vital signs stable. CBC stable. (6) Black stools Code(s): K92.1 - Melena Status: Acute Plan: Patient reports last few days of black loose stools. She states is tarry. No h /o GI bleed. Hemoccult and C. difficile negative, continue to monitor (7) Neck pain Code(s): M54.2 - Cervicalgia Status: Acute Plan: Exam is benign. Patient likes has a degenerative process. Patient states she is allergic to all NSAIDs Avoiding opiates as above K thermia added. (8) Hypertensive urgency Code(s): I16.0 - Hypertensive urgency Status: Acute Plan: BP improving. Likely a secondary to the acute ETOH withdrawal. Continue current treatment plan. (9) History of DVT (deep vein thrombosis) Code(s): Z86.718 - Personal history of other venous thrombosis and embolism Status: Acute Plan: Patient with reported history of a DVT states that she was previously prescribed Xarelto No calf tenderness or positive Homans sign on physical exam Lovenox for DVT prophylaxis and will continue to monitor (10) Nausea & vomiting Code(s): R11.2 - Nausea with vomiting, unspecified Status: Acute Plan: Patient reporting significant nausea vomiting prior to arrival Continue Zofran, no electrolyte abnormalities on admission No vomiting appreciated. Patient has been asked to show any vomit to the nurse (11) Diabetes Code(s): E11.9 - Type 2 diabetes mellitus without complications Status: Acute Plan: Reportedly has a history of diabetes and been prescribed Lantus and Humulin sliding scale Low-dose sliding scale (12) Tobacco dependence Code(s): F17.200 - Nicotine dependence, unspecified, uncomplicated Status: Acute Plan: nicotine patch (13) Nutrition, metabolism, and development symptoms Code(s): R63.8 - Other symptoms and signs concerning food and fluid intake Status: Acute Plan: Regular diet No electrolyte abnormalities on admission Lovenox for DVT prophylaxis <Carey Deal - 03/11/18 14:35> - Assessment and Plan 62-year-old female with a history of COPD, diabetes, history of DVT, CAD, history of alcohol abuse presented to the ED with multiple complaints including nausea vomiting, falling recently, and alcohol withdrawal. Band of UTI on admission and is now growing ESBL E. coli. Consulted ID Improved since admission - no sign of seizures and patient remains alert and oriented. <Carey Deal - 03/11/18 10:23> - Attending Attestation Patient seen and examined and dw the resident team. Agree with the assessment and plan. Extended time spent with patient and discussion about her chronic medical illnesses and what we recommend h/o Hep C and hep B -- viral load pending. Pt was treated with interferon in the past - is aware there is new treatments. She is going to fu with her GI - Dr. Garrison regarding this COPD - she is using nicotine patch in the hospital. DW and recommended smoking cessation. She requirs 3L Oxygen via NC which reportedly has been stable for years. She has refused nebs but is willing to try the spiriva with albuterol for rescue. She will fu with her farebox repairer - Dr. Leal for this. DM -- h/o this but her A1c is 6.2 - no medication needed at this time Depression/Anxiety/Insomnia -- pt with grief, also depression -- no suicidal thoughts or plans. She was inpatient voluntarily in the past. Do not believe she needs inpatient therapy at this time. She is willing to try SSRI -- wanted to use sertraline but she knows someone that had a reaction to that -- so she refuses -- trial of citalopram. She would benefit from half-way psychotherapy. Chronic pain - patient reports h/o chronic pain and use of chronic opiates. Using the [facility] system we did look this up and looks like this was the case in the past but no recent prescriptions for opiates on a chronic basis. DWPT that due to her degenerative changes in her spine would not recommend restarting chronic opiates. She is a alcoholic with psychiatric illness which puts her at high risk for overdose. Patient is not happy with this but she understands it is for her safety. ETOH withdrawal -- her last drink was 6 days ago. She is clinically well, no tremors, vitals have stabilized. Anticipate dc to home tomorrow. She states she has a friend that is going to help her until she can find an [facility] that she wants to go to. <Jami Beckford R - 03/11/18 15:13> <Carey Deal - Last Filed: 03/11/18 14:35> (1) Alcohol withdrawal Qualifiers: Complication of substance-induced condition: with unspecified complication Qualified Code(s): F10.239 - Alcohol dependence with withdrawal, unspecified <OniJami arteaga Aubrey - Last Filed: 03/11/18 15:13> (1) Alcohol withdrawal Qualifiers: Complication of substance-induced condition: with unspecified complication Qualified Code(s): F10.239 - Alcohol dependence with withdrawal, unspecified <Carey Deal - Last Filed: 03/11/18 14:35> (1) Alcohol withdrawal Qualifiers: Complication of substance-induced condition: with unspecified complication Qualified Code(s): F10.239 - Alcohol dependence with withdrawal, unspecified <Jami Beckford - Last Filed: 03/11/18 15:13> (1) Alcohol withdrawal Qualifiers: Complication of substance-induced condition: with unspecified complication Qualified Code(s): F10.239 - Alcohol dependence with withdrawal, unspecified
[2018-03-11] MEDS: Sertraline 50 MG Tablet PO SCH (10:24)
[2018-03-11] MEDS: Citalopram 20 MG Tablet PO SCH (13:50)
[2018-03-11] MEDS: Enoxaparin Inj 40 MG/0.4 ML Syringe SQ SCH (13:50)
[2018-03-11] MEDS ORDERED: LORazepam 1 MG Tablet PO SCH (21:00)
[2018-03-12] MEDS: LORazepam 1 MG Tablet PO PRN ×2 (01:21→05:32)
[2018-03-12] MEDS: Sod Chloride 0.9% Inj 1,000 ML IV.CONT SCH ×3 (05:17→23:24)
[2018-03-12] MEDS: Citalopram 20 MG Tablet PO SCH ×2 (09:12→09:49)
[2018-03-12] MEDS: Senna/Docusate Sodium 8.6/50 MG Tablet PO SCH ×2 (09:12→23:22)
[2018-03-12] MEDS: Lisinopril 10 MG Tablet PO SCH (09:13)
[2018-03-12] MEDS: Insulin NovoLOG Aspart Correctional Sugar Inj SQ SCH ×4 (09:46→23:21)
[2018-03-12] MEDS: Tiotropium Bromide 18 MCG/ACT Inhaler INH SCH (09:48)
[2018-03-12] MEDS: Enoxaparin Inj 40 MG/0.4 ML Syringe SQ SCH (13:34)
--- NOTE | 2018-03-12 14:00 | P.PNFP ---
Subjective Interval history: No acute events overnight. Patient states that she is waiting for her friend Anu comes today and is hoping to potentially stay with her for some time. She is tearful and states that she hopes to go back on hospice. Patient states that she is on hospice twice for secondary to her ovarian cancer and emphysema. She states she did not want to discuss this further at this time. <Brennan Crooks - 03/12/18 14:48> Results - Labs Result diagrams: 03/11/18 06:54 03/11/18 06:54 <Jami Beckford - 03/13/18 09:36> Abnormal lab results 03/12/18 03/12/18 03/12/18 Range/Units 09:11 12:47 18:38 POC Glucose 227 H 156 H 217 H (68-110) mg/dl 03/12/18 03/13/18 Range/Units 23:21 08:15 POC Glucose 144 H 141 H (68-110) mg/dl <Jami Beckford - 03/13/18 09:36> Abnormal lab results 03/11/18 03/11/18 03/12/18 Range/Units 18:05 22:06 09:11 POC Glucose 135 H 166 H 227 H (68-110) mg/dl 03/12/18 Range/Units 12:47 POC Glucose 156 H (68-110) mg/dl <Brennna Crooks - 03/12/18 14:00> Physical Exam Vital signs: Vital Signs 03/12/18 12:00 03/12/18 16:00 03/12/18 20:00 Temperature 98.5 F 98.4 F 97.4 F L Pulse Rate 87 70 71 Respiratory Rate 20 22 18 Blood Pressure 184/79 H 184/84 H 168/80 H Pulse Oximetry 94 L 100 100 03/12/18 20:05 03/13/18 00:00 03/13/18 04:00 Temperature 97.6 F 97.9 F Pulse Rate 71 64 71 Respiratory Rate 16 18 Blood Pressure 176/74 H 158/72 H Pulse Oximetry 100 100 03/13/18 08:00 Temperature 98.4 F Pulse Rate 64 Respiratory Rate 20 Blood Pressure 160/70 H Pulse Oximetry 97 Intake & Output 03/12/18 03/13/18 03/13/18 18:59 06:59 18:59 Intake Total 1000 / 1000 Balance 1000 / 1000 Weight 76.6 kg Intake: IV 1000 / 1000 NS Inj 1,000 ML @ 100 mls/hr IV 1000 / 1000 .CONT .Q10H JUANPABLO Rx#:[id number] Other: # Voids 2 Date of Last Bowel Movement 03/11/18 <Jami Beckford R - 03/13/18 09:36> Vital Signs 03/11/18 16:10 03/11/18 20:00 03/12/18 00:00 Temperature 98.4 F 98.0 F Pulse Rate 74 60 63 Respiratory Rate 20 20 Blood Pressure 171/78 H 161/65 H Pulse Oximetry 97 98 03/12/18 02:05 03/12/18 04:00 Temperature 97.6 F Pulse Rate 71 67 Respiratory Rate 16 16 Blood Pressure 147/67 H 171/72 H Pulse Oximetry 96 94 L Intake & Output 03/11/18 03/12/18 03/12/18 18:59 06:59 18:59 Intake Total 30 / 30 Balance 30 / 30 Weight 76.5 kg Intake: IV 30 / 30 NS Inj 1,000 ML @ 100 mls/hr IV 30 / 30 .CONT .Q10H JUANPABLO Rx#:[id number] Other: # Voids 2 Date of Last Bowel Movement 03/09/18 03/11/18 03/11/18 <Brennan Crooks - 03/12/18 14:00> Narrative: GENERAL: Well-nourished well-developed, sitting upright in bed with no nasal cannula in place. Tearful during the interview SKIN: Cool and dry, no generalized rash. Hoarse voice (smoking related) HEAD: Atraumatic. Normocephalic. No temporal or scalp tenderness. ENT: Nothing abnormal detected NECK: Trachea midline. Supple, nontender, no meningeal signs. CARDIOVASCULAR: Regular rate and rhythm, S1 and S2 appreciated. No murmurs, rubs or gallops. RESPIRATORY: Expiratory wheezing auscultated bilaterally throughout all lung rojas. Coarse breath sounds. GASTROINTESTINAL: Abdomen soft nontender. MUSCULOSKELETAL: Extremities without clubbing, cyanosis. 5x1 cm healing dark bruise on the L lower back. NEUROLOGICAL: Alert oriented 3. Nonfocal. Psych flat affect, poor judgment, poor insight. IV line sites ok. <Brennan Crooks - 03/12/18 14:48> Assessment and Plan - Assessment (1) Alcohol withdrawal Code(s): F10.239 - Alcohol dependence with withdrawal, unspecified Status: Acute (2) Ovarian cancer Code(s): C56.9 - Malignant neoplasm of unspecified ovary Status: Acute (3) Depression Code(s): F32.9 - Major depressive disorder, single episode, unspecified Status : Acute (4) COPD (chronic obstructive pulmonary disease) Code(s): J44.9 - Chronic obstructive pulmonary disease, unspecified Status: Acute (5) Positive hepatitis test Code(s): R76.8 - Other specified abnormal immunological findings in serum Status: Acute (6) UTI (urinary tract infection) Code(s): N39.0 - Urinary tract infection, site not specified Status: Acute (7) Black stools Code(s): K92.1 - Melena Status: Resolved (8) Neck pain Code(s): M54.2 - Cervicalgia Status: Acute (9) Hypertensive urgency Code(s): I16.0 - Hypertensive urgency Status: Acute (10) History of DVT (deep vein thrombosis) Code(s): Z86.718 - Personal history of other venous thrombosis and embolism Status: Acute (11) Nausea & vomiting Code(s): R11.2 - Nausea with vomiting, unspecified Status: Acute (12) Diabetes Code(s): E11.9 - Type 2 diabetes mellitus without complications Status: Acute (13) Tobacco dependence Code(s): F17.200 - Nicotine dependence, unspecified, uncomplicated Status: Acute (14) Nutrition, metabolism, and development symptoms Code(s): R63.8 - Other symptoms and signs concerning food and fluid intake Status: Acute <Jami Beckford R - 03/13/18 09:36> (1) Alcohol withdrawal Code(s): F10.239 - Alcohol dependence with withdrawal, unspecified Status: Acute Plan: Day 6 of withdrawal. No tremors today at bedside. A&O. Patient had several CIWA scores in the 5-10 range the patient was given p.o. Ativan Nursing staff now reporting that patient was found with 1.5 Ativan pills in her bed, it appears that she has not been taking them when administered Holding CIWA meds for now. No physical exam findings/tachycardia that would be concerning for withdrawal (2) Ovarian cancer Code(s): C56.9 - Malignant neoplasm of unspecified ovary Status: Acute Plan: Patient revealed today that she has a history of ovarian cancer and that she has been on hospice before due to this Patient expressing desire for hospice currently Palliative care consult (3) Depression Code(s): F32.9 - Major depressive disorder, single episode, unspecified Status : Acute Plan: Celexa was added but patient refused (4) COPD (chronic obstructive pulmonary disease) Code(s): J44.9 - Chronic obstructive pulmonary disease, unspecified Status: Acute Plan: Patient has been refusing duo nebs treatment Spiriva daily Home walk test ordered and patient will require 3 L nasal cannula continuous at time of discharge, ordered (5) Positive hepatitis test Code(s): R76.8 - Other specified abnormal immunological findings in serum Status: Acute Plan: Patient positive for hepatitis B and C Quantitative assays pending HIV negative. Liver ultrasound shows: Unremarkable. Will need follow-up with GI at discharge (6) UTI (urinary tract infection) Code(s): N39.0 - Urinary tract infection, site not specified Status: Acute Plan: Started on Rocephin for UTI, cultures now growing ESBL E. coli. ID recommends to DC Rocephin and await repeat urine analysis. Repeat UA unremarkable. Afebrile. Vital signs stable. CBC stable. (7) Black stools Code(s): K92.1 - Melena Status: Resolved Plan: Hemoccult and C. difficile negative on admission Resolved (8) Neck pain Code(s): M54.2 - Cervicalgia Status: Acute Plan: Exam is benign. Patient likes has a degenerative process. Patient states she is allergic to all NSAIDs Avoiding opiates as above K thermia added. (9) Hypertensive urgency Code(s): I16.0 - Hypertensive urgency Status: Acute Plan: BP improving. Likely a secondary to the acute ETOH withdrawal. Continue current treatment plan. (10) History of DVT (deep vein thrombosis) Code(s): Z86.718 - Personal history of other venous thrombosis and embolism Status: Acute Plan: Patient with reported history of a DVT states that she was previously prescribed Xarelto No calf tenderness or positive Homans sign on physical exam Lovenox for DVT prophylaxis and will continue to monitor (11) Nausea & vomiting Code(s): R11.2 - Nausea with vomiting, unspecified Status: Acute Plan: Patient reporting significant nausea vomiting prior to arrival Continue Zofran, no electrolyte abnormalities on admission No vomiting appreciated. Patient has been asked to show any vomit to the nurse (12) Diabetes Code(s): E11.9 - Type 2 diabetes mellitus without complications Status: Acute Plan: Reportedly has a history of diabetes and been prescribed Lantus and Humulin sliding scale Low-dose sliding scale (13) Tobacco dependence Code(s): F17.200 - Nicotine dependence, unspecified, uncomplicated Status: Acute Plan: nicotine patch (14) Nutrition, metabolism, and development symptoms Code(s): R63.8 - Other symptoms and signs concerning food and fluid intake Status: Acute Plan: Regular diet No electrolyte abnormalities on admission Lovenox for DVT prophylaxis <Brennan Crooks B - 03/12/18 14:36> - Assessment and Plan 62-year-old female with a history of COPD, diabetes, history of DVT, CAD, history of alcohol abuse presented to the ED with multiple complaints including nausea vomiting, falling recently, and alcohol withdrawal. UA on admission grew ESBL E. coli, consulted ID who recommended a repeat cathed urine she was asymptomatic. The repeat UA was normal she is not currently being treated on any antibiotics. Patient revealed that she has a history of ovarian cancer and states that she has been on hospice before. Palliative care consulted. <Brennan Crooks B - 03/12/18 14:48> - Attending Attestation Patient seen and dw the resident team. Agree with the assessment and plan. Palliative consulted to see if they assist with sorting out patients options, etc. Patient is not really forthcoming. She has a significant addiction issue and does not desire rehab for this. She would like to be "inpatient" somewhere so that others can care for her and has tried on multiple occasions to manipulate things try to get this accomplished. Anticipate dc tomorrow if there is nothing palliative is able to offer the patient. <Jami Beckford R - 03/13/18 09:36> <Brennan Crooks B - Last Filed: 03/12/18 14:36> (1) Alcohol withdrawal Qualifiers: Complication of substance-induced condition: with unspecified complication Qualified Code(s): F10.239 - Alcohol dependence with withdrawal, unspecified <Jami Beckford R - Last Filed: 03/13/18 09:36> (1) Alcohol withdrawal Qualifiers: Complication of substance-induced condition: with unspecified complication Qualified Code(s): F10.239 - Alcohol dependence with withdrawal, unspecified <Brennan Crooks B - Last Filed: 03/12/18 14:36> (1) Alcohol withdrawal Qualifiers: Complication of substance-induced condition: with unspecified complication Qualified Code(s): F10.239 - Alcohol dependence with withdrawal, unspecified <Jami Beckford R - Last Filed: 03/13/18 09:36> (1) Alcohol withdrawal Qualifiers: Complication of substance-induced condition: with unspecified complication Qualified Code(s): F10.239 - Alcohol dependence with withdrawal, unspecified
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
[2018-03-13] MEDS: Sod Chloride 0.9% Inj 1,000 ML IV.CONT SCH ×3 (06:29→18:06)
[2018-03-13] MEDS: Insulin NovoLOG Aspart Correctional Sugar Inj SQ SCH ×4 (08:23→21:01)
[2018-03-13] MEDS: Senna/Docusate Sodium 8.6/50 MG Tablet PO SCH ×2 (09:47→20:53)
[2018-03-13] MEDS: Citalopram 20 MG Tablet PO SCH (09:48)
[2018-03-13] MEDS: Lisinopril 10 MG Tablet PO SCH (09:48)
[2018-03-13] MEDS: Tiotropium Bromide 18 MCG/ACT Inhaler INH SCH (09:49)
--- NOTE | 2018-03-13 10:36 | P.PNFP ---
Subjective Interval history: Patient seen and examined at bedside this morning. She continues to request for IV Ativan. States that she had a history of seizures controlled on Tegretol and Dilantin. Says that she was on IV Ativan daily. She says that her diarrhea has resolved. She states that she feels as though she is going to go into seizure later today if she does not receive her Ativan. Patient became emotionally labile during conversation. Educated patient on the importance of not receiving Ativan if this was not a prescribed home medication. Patient states that we can call her pharmacy and confirm. Relayed to patient that we would investigate her medications further. She denies any CP , SOB, Ab pain, problems with urination or defecation. <Carey Deal - 03/13/18 15:43> Results - Labs Result diagrams: 03/11/18 06:54 03/11/18 06:54 <Jami Beckford - 03/13/18 16:16> Abnormal lab results 03/12/18 03/12/18 03/13/18 Range/Units 18:38 23:21 08:15 POC Glucose 217 H 144 H 141 H (68-110) mg/dl <Jami Beckford - 03/13/18 16:16> Abnormal lab results 03/12/18 03/12/18 03/12/18 Range/Units 12:47 18:38 23:21 POC Glucose 156 H 217 H 144 H (68-110) mg/dl 03/13/18 Range/Units 08:15 POC Glucose 141 H (68-110) mg/dl <Carey Deal - 03/13/18 10:36> Physical Exam Vital signs: Vital Signs 03/12/18 20:00 03/12/18 20:05 03/13/18 00:00 Temperature 97.4 F L 97.6 F Pulse Rate 71 71 64 Respiratory Rate 18 16 Blood Pressure 168/80 H 176/74 H Pulse Oximetry 100 100 03/13/18 04:00 03/13/18 08:00 03/13/18 12:00 Temperature 97.9 F 98.4 F 98.1 F Pulse Rate 71 64 76 Respiratory Rate 18 20 20 Blood Pressure 158/72 H 160/70 H 155/74 H Pulse Oximetry 100 97 98 03/13/18 13:01 03/13/18 15:10 03/13/18 15:19 Temperature 98.4 F Pulse Rate 95 H 84 Respiratory Rate 18 Blood Pressure 183/87 H 149/75 H Pulse Oximetry 94 L 100 03/13/18 15:37 Temperature Pulse Rate 62 Respiratory Rate Blood Pressure Pulse Oximetry Intake & Output 03/12/18 03/13/18 03/13/18 18:59 06:59 18:59 Intake Total 1000 / 1000 1000 / 1000 Balance 1000 / 1000 1000 / 1000 Weight 76.6 kg Intake: IV 1000 / 1000 1000 / 1000 NS Inj 1,000 ML @ 100 mls/hr IV 1000 / 1000 1000 / 1000 .CONT .Q10H [facility] Rx#:[id number] Other: # Voids 2 Date of Last Bowel Movement 03/11/18 <Jami Beckford - 03/13/18 16:16> Vital Signs 03/12/18 12:00 03/12/18 16:00 03/12/18 20:00 Temperature 98.5 F 98.4 F 97.4 F L Pulse Rate 87 70 71 Respiratory Rate 20 22 18 Blood Pressure 184/79 H 184/84 H 168/80 H Pulse Oximetry 94 L 100 100 03/12/18 20:05 03/13/18 00:00 03/13/18 04:00 Temperature 97.6 F 97.9 F Pulse Rate 71 64 71 Respiratory Rate 16 18 Blood Pressure 176/74 H 158/72 H Pulse Oximetry 100 100 03/13/18 08:00 Temperature 98.4 F Pulse Rate 64 Respiratory Rate 20 Blood Pressure 160/70 H Pulse Oximetry 97 Intake & Output 03/12/18 03/13/18 03/13/18 18:59 06:59 18:59 Intake Total 1000 / 1000 1000 / 1000 Balance 1000 / 1000 1000 / 1000 Weight 76.6 kg Intake: IV 1000 / 1000 1000 / 1000 NS Inj 1,000 ML @ 100 mls/hr IV 1000 / 1000 1000 / 1000 .CONT .Q10H [facility] Rx#:[id number] Other: # Voids 2 Date of Last Bowel Movement 03/11/18 <Carey Deal - 03/13/18 10:36> Narrative: GENERAL: Well-nourished well-developed, sitting upright in bed with no nasal cannula in place. Tearful during the interview SKIN: Cool and dry, no generalized rash. Hoarse voice (smoking related) HEAD: Atraumatic. Normocephalic. No temporal or scalp tenderness. ENT: Nothing abnormal detected NECK: Trachea midline. Supple, nontender, no meningeal signs. CARDIOVASCULAR: Regular rate and rhythm, S1 and S2 appreciated. No murmurs, rubs or gallops. RESPIRATORY: Expiratory wheezing auscultated bilaterally throughout all lung rojas. Coarse breath sounds. GASTROINTESTINAL: Abdomen soft nontender. MUSCULOSKELETAL: Extremities without clubbing, cyanosis. 5x1 cm healing dark bruise on the L lower back. NEUROLOGICAL: Alert oriented 3. Nonfocal. Psych flat affect, poor judgment, poor insight. <BriaclintCarey - 03/13/18 15:43> Assessment and Plan - Assessment (1) Alcohol withdrawal Code(s): F10.239 - Alcohol dependence with withdrawal, unspecified Status: Acute (2) Ovarian cancer Code(s): C56.9 - Malignant neoplasm of unspecified ovary Status: Acute (3) Depression Code(s): F32.9 - Major depressive disorder, single episode, unspecified Status : Acute (4) COPD (chronic obstructive pulmonary disease) Code(s): J44.9 - Chronic obstructive pulmonary disease, unspecified Status: Acute (5) Positive hepatitis test Code(s): R76.8 - Other specified abnormal immunological findings in serum Status: Acute (6) Hypertensive urgency Code(s): I16.0 - Hypertensive urgency Status: Acute (7) UTI (urinary tract infection) Code(s): N39.0 - Urinary tract infection, site not specified Status: Acute (8) Black stools Code(s): K92.1 - Melena Status: Resolved (9) Neck pain Code(s): M54.2 - Cervicalgia Status: Acute (10) History of DVT (deep vein thrombosis) Code(s): Z86.718 - Personal history of other venous thrombosis and embolism Status: Acute (11) Nausea & vomiting Code(s): R11.2 - Nausea with vomiting, unspecified Status: Acute (12) Diabetes Code(s): E11.9 - Type 2 diabetes mellitus without complications Status: Acute (13) Tobacco dependence Code(s): F17.200 - Nicotine dependence, unspecified, uncomplicated Status: Acute (14) Nutrition, metabolism, and development symptoms Code(s): R63.8 - Other symptoms and signs concerning food and fluid intake Status: Acute <Jami Beckford R - 03/13/18 16:16> (1) Alcohol withdrawal Code(s): F10.239 - Alcohol dependence with withdrawal, unspecified Status: Acute Plan: Day 7 of withdrawal. No tremors today at bedside. A&O. Last CIWA score 4. Ativan held due to patient being found with 1.5 Ativan pills in her bed. States that she is on Ativan chronically. Called [facility] pharmacy: Confirmed that the patient is not on Ativan chronically. Seems to fill scripts periodically for 3-7 days. [employer]force: Ativan prescription seen below: 11/11/17: Ativan 0.5 mg prescribed for 12 tablets (3 days). 10/25/2017: Ativan 0.5 mg for 9 pills (3 days) 08/22/2017: Ativan 1 mg for 15 pills (5 days) 02/17/2017: Ativan 0.5 mg for 7 pills ( 3 days). Psych: Start gabapentin 300 mg 3 times daily. Increase Celexa to 40 mg daily. (2) Ovarian cancer Code(s): C56.9 - Malignant neoplasm of unspecified ovary Status: Acute Plan: Patient revealed yesterday that she has a history of ovarian cancer Patient expressing desire for hospice currently Palliative care consult Hospice consulted (3) Depression Code(s): F32.9 - Major depressive disorder, single episode, unspecified Status : Acute Plan: Celexa was added but patient refused (4) COPD (chronic obstructive pulmonary disease) Code(s): J44.9 - Chronic obstructive pulmonary disease, unspecified Status: Acute Plan: Patient has been refusing duo nebs treatment Spiriva daily Home walk test ordered and patient will require 3 L nasal cannula continuous at time of discharge, ordered (5) Positive hepatitis test Code(s): R76.8 - Other specified abnormal immunological findings in serum Status: Acute Plan: Patient positive for hepatitis B and C Quantitative assays pending HIV negative. Liver ultrasound shows: Unremarkable. Will need follow-up with GI at discharge (6) Hypertensive urgency Code(s): I16.0 - Hypertensive urgency Status: Acute Plan: Pressure still mildly elevated: 155/74, 183/87. Patient on clonidine 0.1 mg as needed. Will increase lisinopril to 20 mg daily. Continue to monitor. (7) UTI (urinary tract infection) Code(s): N39.0 - Urinary tract infection, site not specified Status: Acute Plan: Started on Rocephin for UTI, cultures now growing ESBL E. coli. ID recommends to DC Rocephin and await repeat urine analysis. Repeat UA unremarkable. Afebrile. Vital signs stable. CBC stable. (8) Black stools Code(s): K92.1 - Melena Status: Resolved Plan: Hemoccult and C. difficile negative on admission Resolved (9) Neck pain Code(s): M54.2 - Cervicalgia Status: Acute Plan: Exam is benign. Patient likes has a degenerative process. Patient states she is allergic to all NSAIDs Avoiding opiates as above K thermia added. (10) History of DVT (deep vein thrombosis) Code(s): Z86.718 - Personal history of other venous thrombosis and embolism Status: Acute Plan: Patient with reported history of a DVT states that she was previously prescribed Xarelto No calf tenderness or positive Homans sign on physical exam Lovenox for DVT prophylaxis and will continue to monitor (11) Nausea & vomiting Code(s): R11.2 - Nausea with vomiting, unspecified Status: Acute Plan: Patient reporting significant nausea vomiting prior to arrival Continue Zofran, no electrolyte abnormalities on admission No vomiting appreciated. Patient has been asked to show any vomit to the nurse (12) Diabetes Code(s): E11.9 - Type 2 diabetes mellitus without complications Status: Acute Plan: Reportedly has a history of diabetes and been prescribed Lantus and Humulin sliding scale Low-dose sliding scale (13) Tobacco dependence Code(s): F17.200 - Nicotine dependence, unspecified, uncomplicated Status: Acute Plan: nicotine patch (14) Nutrition, metabolism, and development symptoms Code(s): R63.8 - Other symptoms and signs concerning food and fluid intake Status: Acute Plan: Regular diet No electrolyte abnormalities on admission Lovenox for DVT prophylaxis <Carey Deal - 03/13/18 15:46> - Assessment and Plan 62-year-old female with a history of COPD, diabetes, history of DVT, CAD, history of alcohol abuse presented to the ED with multiple complaints including nausea vomiting, falling recently, and alcohol withdrawal. UA on admission grew ESBL E. coli, consulted ID who recommended a repeat cathed urine she was asymptomatic. The repeat UA was normal she is not currently being treated on any antibiotics. Patient revealed that she has a history of ovarian cancer and states that she has been on hospice before. Palliative care consulted. <Carey Deal - 03/13/18 10:36> - Attending Attestation Patient seen and examined and dw the resident team. Patient does not need inpatient psych and has capacity to make her own medical decisions per psychiatry consult. Hospice consult pending. I do not think that the patient will meet Hospice eligibility but will await their recommendations. If Hospice is not an option then the plan will be to d/c the patient to her friends home or back to the hotel where the patient was previously living. Anticipate dc today or tomorrow dependant upon the recommendations of Hospice which is still pending. <Jami Beckford - 03/13/18 16:16> <Carey Deal - Last Filed: 03/13/18 15:46> (1) Alcohol withdrawal Qualifiers: Complication of substance-induced condition: with unspecified complication Qualified Code(s): F10.239 - Alcohol dependence with withdrawal, unspecified <Jami Beckford - Last Filed: 03/13/18 16:16> (1) Alcohol withdrawal Qualifiers: Complication of substance-induced condition: with unspecified complication Qualified Code(s): F10.239 - Alcohol dependence with withdrawal, unspecified <Carey Deal - Last Filed: 03/13/18 15:46> (1) Alcohol withdrawal Qualifiers: Complication of substance-induced condition: with unspecified complication Qualified Code(s): F10.239 - Alcohol dependence with withdrawal, unspecified <Jami Beckford - Last Filed: 03/13/18 16:16> (1) Alcohol withdrawal Qualifiers: Complication of substance-induced condition: with unspecified complication Qualified Code(s): F10.239 - Alcohol dependence with withdrawal, unspecified
[2018-03-13] MEDS: Enoxaparin Inj 40 MG/0.4 ML Syringe SQ SCH (12:07)
--- NOTE | 2018-03-13 12:45 | P.CONPSY ---
Provisional Diagnosis Admission Date: March 07, 2018 11:43 Reeds I.: Adjustment disorder with mixed depressed mood and anxiety, alcohol and benzodiazepines use disorder History of Present Illness Service: Medicne Primary Care Provider: UNKNOWN History of Present Illness: The patient is a 62-year-old woman, domiciled in [facility], , well- known by the psychiatric service, with a psychiatric history of PTSD, panic disorder, alcohol and benzodiazepines use disorder, with history of drug- seeking behavior, poor coping skill, with a medical history of COPD, diabetes, history of DVT, CAD, presented to the ED with multiple complaints including nausea vomiting, falling recently, and alcohol withdrawal. UA on admission grew ESBL E. coli, consulted ID who recommended a repeat cathed urine she was asymptomatic. She was admitted with Alcohol withdrawal. Consulted to me for decision-making capacity to participate in medical decisions. My psychiatric evaluation today the patient is oppositional, resistant, stating that she does not need to see any psychiatrist other than Dr. Gutierrez. When I presented myself as a psychiatrist, the patient presented that she does not remember me. I have seen her before in other settings of the hospital. She tells me that she does not want to talk to me because I know that you are not going to prescribe me my medications, Dr. Gutierrez is the only one who understands me. She requested to be medicated with Ativan for her anxiety and depression. The patient is emotionally this regulated, crying, stating that her has recently . There is a very similar presentation that the last time I saw her. The patient is quite focused in getting narcotics, also complaining of pain and asking for opiates. She denies suicidal and homicidal ideation, denies visual and auditory hallucinations. The patient says that she does not believing committed suicide because she is at [facility]. The patient is fully oriented x3. She has no insight of her alcohol and benzodiazepine use/ abuse. She says that she relapsed in alcohol because her a couple of months ago. PPHx: well-known by the psychiatric service, with a psychiatric history of PTSD , panic disorder, alcohol and benzodiazepines use disorder, with history of drug -seeking behavior, poor coping skill, with a PMHx: medical history of COPD, diabetes, history of DVT, CAD Substance Hx: Patient abuses alcohol and benzodiazepines Family Hx: No family psychiatric history Social Hx: Patient was born and raised in [facility], she lives in [facility], she is Lutheran Review of Systems All other systems reviewed negative except as stated in HPI Psychiatric: Reports anxiety, Reports depression, Reports irritability PMFSH - History History Provided By: Patient - Medical History Medical History: Medical History (Last Reviewed 03/12/18 @ 16:14 by ELIZABETH Milian) History of infection due to ESBL Escherichia coli Onset Date: ~03/07/18 Asthma COPD (chronic obstructive pulmonary disease) HBP (high blood pressure) History of hysterectomy Smoker - Surgical History Surgical History: Surgical History (Last Reviewed 03/12/18 @ 16:14 by ELIZABETH Milian) Hx of cholecystectomy - Tobacco History Second Hand Smoke Exposure: Yes Tobacco Use In Past 30 Days: Yes Smoking Status: Current every day smoker Tobacco Type: Cigarettes - Alcohol History How Often Do You Have a Drink Containing Alcohol: Monthly or less - Substance Use History Substance History: No History of Abuse - Travel History Recent Travel in the [place] Within the Last 8 Weeks: No Recent Travel Out of the Country Within the Last 8 Weeks: No - Immunization History Tetanus Immunization: Unsure Medications and Allergies Active Medications: Active Medications Al Hydroxide/Mg Hydroxide (Milk Of Bladimir Liq) 30 ml PO Q12H PRN PRN Reason: Mild Constipation Albuterol (Ventolin Hfa Inh) 2 puff INH Q4H PRN PRN Reason: SHORTNESS OF BREATH/WHEEZING Citalopram Hydrobromide (Celexa) 20 mg PO DAILY [facility] Last Admin: 03/13/18 09:48 Dose: 20 mg Clonidine HCl (Catapres) 0.1 mg PO Q6H PRN PRN Reason: SEE LABEL COMMENTS Last Admin: 03/12/18 20:09 Dose: 0.1 mg Dextrose (D50w Vial) 50 ml IV.PUSH UNSCH PRN PRN Reason: PER HYPOGLYCEMIA PROTOCOL Enoxaparin Sodium (Lovenox Inj) 40 mg SQ Q24H [facility] Last Admin: 03/13/18 12:07 Dose: 40 mg Flumazenil (Romazecon Inj) 0.2 mg IV.PUSH Q1M PRN PRN Reason: OVERSEDATION Glucagon (Glucagon Inj) 1 mg OTHER PRN PRN PRN Reason: for Hypoglycemia Protocol Haloperidol Lactate (Haldol Inj) 1 mg IV.PUSH Q15M PRN PRN Reason: for severe agitation Sodium Chloride (Ns Inj) 1,000 mls @ 100 mls/hr IV.CONT .Q10H [facility] Last Admin: 03/13/18 09:44 Dose: 100 mls/hr Insulin Aspart (Novolog Insulin Correctional Sugar Inj) 0 unit SQ ACHS [facility]; Protocol Last Admin: 03/13/18 12:06 Dose: Not Given Lisinopril (Prinivil) 10 mg PO DAILY [facility] Last Admin: 03/13/18 09:48 Dose: 10 mg Loperamide HCl (Imodium) 2 mg PO Q6H PRN PRN Reason: DIARRHEA Lorazepam (Ativan) 1 mg PO Q4H PRN PRN Reason: for CIWA 8-10 Last Admin: 03/12/18 05:32 Dose: 1 mg Lorazepam (Ativan) 2 mg PO Q2H PRN PRN Reason: for CIWA 11-14 Last Admin: 03/08/18 14:05 Dose: 2 mg Lorazepam (Ativan Inj) 2 mg IV.PUSH Q1H PRN PRN Reason: for CIWA 15-20 Last Admin: 03/07/18 15:46 Dose: 2 mg Lorazepam (Ativan Inj) 2 mg IV.PUSH Q15M PRN PRN Reason: for CIWA > 20 Lorazepam (Ativan Inj) 1 mg IV.PUSH Q4H PRN PRN Reason: for CIWA 8-10 Last Admin: 03/10/18 12:38 Dose: 1 mg Lorazepam (Ativan Inj) 2 mg IV.PUSH Q2H PRN PRN Reason: for CIWA 11-14 Last Admin: 03/09/18 03:10 Dose: 2 mg Multivitamins (Theragran) 1 tab PO DAILY [facility] Last Admin: 03/13/18 09:48 Dose: 1 tab Naloxone HCl (Narcan Inj) 0.4 mg IV.PUSH UNSCH PRN PRN Reason: SEE LABEL COMMENTS Nicotine (Habitrol 14 Mg Patch.24 Hr) 1 patch T-DERMAL DAILY [facility] Last Admin: 03/13/18 09:48 Dose: 1 patch Ondansetron HCl (Zofran Inj) 4 mg IV.PUSH Q6H PRN PRN Reason: NAUSEA OR VOMITING Last Admin: 03/13/18 09:50 Dose: 4 mg Patch Removal (Remove Old Patch) 1 each T-DERMAL HS [facility] Last Admin: 03/12/18 23:23 Dose: 1 each Senna/Docusate Sodium (Zohreh-Colace) 1 tab PO BID [facility] Last Admin: 03/13/18 09:47 Dose: 1 tab Sodium Chloride (Ns Flush) 2 ml IV.FLUSH PRN PRN PRN Reason: FLUSH AFTER USING IV ACCESS Sodium Chloride (Ns Flush) 2 ml IV.FLUSH BID [facility] Last Admin: 03/13/18 09:49 Dose: 2 ml Thiamine HCl (Vitamin B1) 100 mg PO BID [facility] Last Admin: 03/13/18 09:49 Dose: 100 mg Tiotropium [place] (Spiriva 18 Mcg Inh) 18 mcg INH DAILY [facility] Last Admin: 03/13/18 09:49 Dose: 18 mcg Allergies Allergy/AdvReac Type Severity Reaction Status Date / Time diclofenac Allergy Severe HAS ULCERS Verified 03/02/18 08:36 etodolac Allergy Severe HAS ULCERS Verified 03/02/18 08:36 flurbiprofen Allergy Severe HAS ULCERS Verified 03/02/18 08:36 indomethacin Allergy Severe HAS ULCERS Verified 03/02/18 08:36 iodine Allergy Severe Swelling Verified 03/02/18 08:36 ketoprofen Allergy Severe Hives Verified 03/02/18 08:36 ketorolac Allergy Severe Hives Verified 03/02/18 08:36 naproxen Allergy Severe Hives Verified 03/02/18 08:36 oxaprozin Allergy Severe Hives Verified 03/02/18 08:36 potassium iodide Allergy Severe Hives Verified 03/02/18 08:36 povidone-iodine Allergy Severe Swelling Verified 07/31/17 13:30 sodium iodide Allergy Severe Swelling Verified 07/31/17 13:30 sodium iodide Allergy Severe Swelling Verified 07/31/17 13:30 Sulfa (Sulfonamide Allergy Severe HIVES AND Verified 07/31/17 13:30 Antibiotics) RASH acetaminophen AdvReac Intermediate Hives Verified 03/02/18 08:36 Home Medications Medication Instructions Recorded Confirmed Type No Known Home Medications 03/02/18 03/07/18 History Exam Vital signs: Vital Signs 03/12/18 16:00 03/12/18 20:00 03/12/18 20:05 Temperature 98.4 F 97.4 F L Pulse Rate 70 71 71 Respiratory Rate 22 18 Blood Pressure 184/84 H 168/80 H Pulse Oximetry 100 100 03/13/18 00:00 03/13/18 04:00 03/13/18 08:00 Temperature 97.6 F 97.9 F 98.4 F Pulse Rate 64 71 64 Respiratory Rate 16 18 20 Blood Pressure 176/74 H 158/72 H 160/70 H Pulse Oximetry 100 100 97 03/13/18 12:00 Temperature 98.1 F Pulse Rate 76 Respiratory Rate 20 Blood Pressure 155/74 H Pulse Oximetry 98 Intake & Output 03/12/18 03/13/18 03/13/18 18:59 06:59 18:59 Intake Total 1000 / 1000 1000 / 1000 Balance 1000 / 1000 1000 / 1000 Weight 76.6 kg Intake: IV 1000 / 1000 1000 / 1000 NS Inj 1,000 ML @ 100 mls/hr IV 1000 / 1000 1000 / 1000 .CONT .Q10H [facility] Rx#:[id number] Other: # Voids 2 Date of Last Bowel Movement 03/11/18 Mental Status Examination Appearance: Appropriate Consciousness: Alert Orientation: x4 Motor Activity: Normal gait Speech: Unremarkable Language: Adequate Fund of Knowledge: Adequate Attention and Concentration: Adequate Mood: Irritable Affect: Irritable Thought Process & Associations: Intact Thought Content: Appropriate Hallucination Type: None Delusion Type: None Suicidal Ideation: No Suicidal Plan: No Suicidal Intention: No Homicidal Ideation: No Homicidal Plan: No Homicidal Intention: No Insight: Adequate Judgment: Adequate Assessment and Plan - Assessment (1) Adjustment disorder with mixed anxiety and depressed mood Code(s): F43.23 - Adjustment disorder with mixed anxiety and depressed mood Status: Acute - Plan Plan: On psychiatric evaluation today the patient does not present any neuropsychiatric symptoms that requires an immediate psychiatric intervention. The patient is irritable, labile, initially resistant and oppositional to talk to me requesting to speak with Dr. Gutierrez. The patient is quite focused in getting Ativan and pain medication, she denies depression, denies suicidal and homicidal ideation, denies visual and auditory hallucinations. The patient is fully oriented x3. There is no attention deficit, no fluctuation of consciousness. Patient seems to be at baseline. She has a psychiatric history of anxiety, alcohol and benzodiazepines use disorder. Celexa can be increased to 40 mg for anxiety. Patient can be prescribed with gabapentin 300 mg 3 times daily to help with pain, alcohol withdrawal and anxiety and to avoid benzodiazepines as much as possible. Continue CIWA. patient has full decision capacity to participate medical decisions. Support, motivational psychoeducation provided. Consult appreciated. Justification for Continued Inpatient Stay: No admission is indicated.
[2018-03-13] MEDS: Gabapentin 300 MG Capsule PO SCH (18:05)
[2018-03-13 23:53] LABS: Hepatitis B DNA (IU/mL) Greater Than 1000000000 IU/mL (0-19); Hepatitis B DNA (Log IU/mL) Greater Than 9.00 (0-1.30); Hepatitis C RNA (PCR) IUs/ml 2930 IU/mL; Hepatitis C RNA (PCR) log IUs 3.47
[2018-03-14] MEDS: Tiotropium Bromide 18 MCG/ACT Inhaler INH SCH (10:06)
[2018-03-14] MEDS: Sod Chloride 0.9% Inj 1,000 ML IV.CONT SCH ×3 (10:07→23:21)
[2018-03-14] MEDS: Insulin NovoLOG Aspart Correctional Sugar Inj SQ SCH ×4 (10:07→21:55)
[2018-03-14] MEDS: Citalopram 20 MG Tablet PO SCH (10:10)
[2018-03-14] MEDS: Gabapentin 300 MG Capsule PO SCH ×3 (10:11→17:28)
[2018-03-14] MEDS: Lisinopril 20 MG Tablet PO SCH (10:11)
[2018-03-14] MEDS: Senna/Docusate Sodium 8.6/50 MG Tablet PO SCH ×2 (10:12→22:04)
[2018-03-14 10:48] LABS: Baso % (Auto) 0.5 % (0.0-2.0); Eos # (Auto) 0.1 th/mm3 (0.0-0.4); Hematocrit 36.6 % (35.0-46.0); Hemoglobin 12.5 gm/dL (11.6-15.3); Lymph # (Auto) 0.6 th/mm3 (1.0-4.8); Lymph % (Auto) 13.4 % (9.0-44.0); Mean Corpuscular HGB Conc 34.1 % (32.0-36.0); Mean Corpuscular Hemoglobin 31.1 pg (27.0-34.0); Mean Corpuscular Volume 91.2 fL (80.0-100.0); Mean Platelet Volume 8.4 fL (7.0-11.0); Mono # (Auto) 0.6 th/mm3 (0.0-0.9); Mono % (Auto) 12.5 % (0.0-8.0); Neut # (Auto) 3.2 th/mm3 (1.8-7.7); Neut % (Auto) 71.6 % (16.0-70.0); Platelet Count 131 th/mm3 (150-450); Red Blood Count 4.01 mil/mm3 (4.00-5.30); White Blood Count 4.4 th/mm3 (4.0-11.0)
[2018-03-14 11:18] LABS: Calcium 8.2 mg/dL (8.5-10.1); Potassium 3.8 meq/L (3.5-5.1)
--- NOTE | 2018-03-14 11:26 | P.PNFP ---
Subjective Interval history: Patient seen and examined at bedside this morning. Had an extensive conversation about patient's medical management going forward. Per nursing, patient has been manipulative overnight. Her blood pressures have been elevated but patient has been denying Vasotec. Patient only wants clonidine to be given for high blood pressure. She continues to be aggravated with the nurse, becomes aggravated before blood pressure readings are being taken. Spoke to patient about her chronic Ativan use. Relayed to patient that [facility] pharmacy confirmed that she does not take Ativan chronically. Patient became angry and aggravated. Discussed with patient that she currently had not been receiving Ativan for the past 48 hours. Educated patient on her medical stability, she is now 7 days out of her alcohol withdrawal. Asked patient about her living situation, if she had any place to live. She became very agitated, dismissive. Was able to reach out to her friend Anu. Anu states that she met Ms. Wagner at [facility] assisted living facility. Ms. Wagner then states that she was escorted out by the police department. She has no contact with her family. She has no where to go and believes that she is not medically stable to leave. States that she needs her Ativan. Relayed to patient that I would work with case management in trying to find a stable place for her to be discharged. She was very dismissive and angry. She says that the medical team is not treating her cough but she continues to deny breathing treatments. <Toyin SandovalCarey - 03/14/18 14:03> Results - Labs Result diagrams: 03/14/18 09:25 03/14/18 09:27 <Jami Beckford R - 03/20/18 09:44> Abnormal lab results 03/19/18 03/20/18 Range/Units 21:02 08:30 POC Glucose 194 H 139 H (68-110) mg/dl <Jami Beckford - 03/20/18 09:44> Abnormal lab results 03/09/18 03/13/18 03/14/18 Range/Units 08:26 21:01 09:25 Plt Count 131 L (150-450) th/mm3 Neut % (Auto) 71.6 H (16.0-70.0) % [place] % (Auto) 12.5 H (0.0-8.0) % Lymph # (Auto) 0.6 L (1.0-4.8) th/mm3 Chloride (98-107) meq/L BUN (7-18) mg/dL Estimated GFR (>89) mL/min POC Glucose 114 H (68-110) mg/dl Random Glucose (74-106) mg/dL Calcium (8.5-10.1) mg/dL Hep B DNA Qnt log IU/mL Greater than 9.00 H (0-1.30) Hep B DNA (IU/mL) Greater than [id number] H (0-19) IU/ml HCV RNA (PCR) IUs/ml 2930 H IU/mL HCV RNA PCR log IUs/ml 3.47 H LogIU/mL 03/14/18 03/14/18 Range/Units 09:27 09:41 Plt Count (150-450) th/mm3 Neut % (Auto) (16.0-70.0) % [place] % (Auto) (0.0-8.0) % Lymph # (Auto) (1.0-4.8) th/mm3 Chloride 108 H (98-107) meq/L BUN 5 L (7-18) mg/dL Estimated GFR 79 L (>89) mL/min POC Glucose 169 H (68-110) mg/dl Random Glucose 113 H (74-106) mg/dL Calcium 8.2 L (8.5-10.1) mg/dL Hep B DNA Qnt log IU/mL (0-1.30) Hep B DNA (IU/mL) (0-19) IU/ml HCV RNA (PCR) IUs/ml IU/mL HCV RNA PCR log IUs/ml LogIU/mL Short CBC 03/14/18 Range/Units 09:25 WBC 4.4 (4.0-11.0) th/mm3 Hgb 12.5 (11.6-15.3) gm/dL Hct 36.6 (35.0-46.0) % Plt Count 131 L (150-450) th/mm3 BMP 03/14/18 09:27 Sodium 145 Potassium 3.8 Chloride 108 H Carbon Dioxide 32.0 BUN 5 L Creatinine 0.74 Calcium 8.2 L <Laqua R1,Carey - 03/14/18 11:26> Physical Exam Vital signs: Vital Signs 03/19/18 10:30 12/19/18 13:38 03/19/18 15:40 Temperature 98.5 F Pulse Rate 70 Respiratory Rate 20 Blood Pressure 181/82 H 146/65 H Pulse Oximetry 96 95 03/19/18 15:52 03/19/18 17:48 03/19/18 20:00 Temperature 98.2 F Pulse Rate 77 Respiratory Rate 20 Blood Pressure 122/61 Pulse Oximetry 94 L 94 L 96 03/20/18 00:00 03/20/18 08:00 03/20/18 09:09 Temperature 97.8 F 98.0 F Pulse Rate 62 69 Respiratory Rate 20 18 Blood Pressure 131/65 121/82 Pulse Oximetry 97 97 95 Intake & Output 03/19/18 03/20/18 03/20/18 18:59 06:59 18:59 Intake Total 280 / 280 Balance 280 / 280 Weight 78.1 kg Intake: Oral 280 / 280 Other: # Voids 2 Date of Last Bowel Movement 03/17/18 03/19/18 <Jami Beckford - 03/20/18 09:44> Vital Signs 03/13/18 12:00 03/13/18 13:01 03/13/18 15:10 Temperature 98.1 F Pulse Rate 76 95 H Respiratory Rate 20 Blood Pressure 155/74 H 183/87 H Pulse Oximetry 98 94 L 03/13/18 15:19 03/13/18 15:37 03/13/18 17:32 Temperature 98.4 F Pulse Rate 84 62 Respiratory Rate 18 Blood Pressure 149/75 H Pulse Oximetry 100 100 03/13/18 20:00 03/14/18 00:00 03/14/18 04:00 Temperature 98.2 F 97.6 F 98.2 F Pulse Rate 78 68 52 L Respiratory Rate 20 20 20 Blood Pressure 193/87 H 180/86 H 162/72 H Pulse Oximetry 98 99 100 03/14/18 08:00 Temperature 98.5 F Pulse Rate 65 Respiratory Rate 16 Blood Pressure 160/73 H Pulse Oximetry 98 Intake & Output 03/13/18 03/14/18 03/14/18 18:59 06:59 18:59 Intake Total 1999 890 / 890 1000 / 1000 Output Total 1000 / 1000 500 / 500 Balance 1000 / 1000 390 / 390 1000 / 1000 Weight 76.8 kg Intake: IV 1999 1000 / 1000 NS Inj 1,000 ML @ 100 mls/hr IV 1999 1000 / 1000 .CONT .Q10H JUANPABLO Rx#:[id number] Oral 890 / 890 Output: Urine 999 / 1000 500 / 500 Other: # Bowel Movements 1 <Carey Altamirano - 03/14/18 11:26> Narrative: GENERAL: Well-nourished well-developed, sitting upright in bed with no nasal cannula in place. Agitated. SKIN: Cool and dry, no generalized rash. Hoarse voice (smoking related) HEAD: Atraumatic. Normocephalic. No temporal or scalp tenderness. ENT: Nothing abnormal detected NECK: Trachea midline. Supple, nontender, no meningeal signs. CARDIOVASCULAR: Regular rate and rhythm, S1 and S2 appreciated. No murmurs, rubs or gallops. RESPIRATORY: Expiratory wheezing auscultated bilaterally throughout all lung rojas. Coarse breath sounds. GASTROINTESTINAL: Abdomen soft nontender. MUSCULOSKELETAL: Extremities without clubbing, cyanosis. 5x1 cm healing dark bruise on the L lower back. NEUROLOGICAL: Alert oriented 3. Nonfocal. Psych flat affect, poor judgment, poor insight. <Carey Altamirano - 03/14/18 14:00> Assessment and Plan - Assessment (1) Alcohol withdrawal Code(s): F10.239 - Alcohol dependence with withdrawal, unspecified Status: Acute Plan: Day 7 of withdrawal. No tremors today at bedside. A&O. Last CIWA score 4. Ativan held due to patient being found with 1.5 Ativan pills in her bed. Has not received Ativan for the past 48 hours. Patient is currently past the stages of withdrawal. Is medically stable for discharge. Discharge pending case management placement of long-term care facility. Continue gabapentin 300 mg 3 times daily. Celexa 40 mg daily. (2) Ovarian cancer Code(s): C56.9 - Malignant neoplasm of unspecified ovary Status: Acute Plan: Patient revealed yesterday that she has a history of ovarian cancer Patient expressing desire for hospice currently Palliative care consult Hospice consulted: Recommends hospice as a SNF. Patient not eligible for longterm facility. (3) Depression Code(s): F32.9 - Major depressive disorder, single episode, unspecified Status : Acute Plan: Celexa 40 (4) COPD (chronic obstructive pulmonary disease) Code(s): J44.9 - Chronic obstructive pulmonary disease, unspecified Status: Acute Plan: Patient has been refusing duo nebs treatment Spiriva daily Home walk test ordered and patient will require 3 L nasal cannula continuous at time of discharge, ordered (5) Positive hepatitis test Code(s): R76.8 - Other specified abnormal immunological findings in serum Status: Acute Plan: Patient positive for hepatitis B and C Hepatitis B quant: 1 billion Hep C quant: 2930. HIV negative. Liver ultrasound shows: Unremarkable. Will need follow-up with GI at discharge (6) Hypertensive urgency Code(s): I16.0 - Hypertensive urgency Status: Acute Plan: Pressure still mildly elevated: 162/72 Patient on clonidine 0.1 mg as needed. Continue lisinopril 20 mg daily. Continue to monitor. (7) UTI (urinary tract infection) Code(s): N39.0 - Urinary tract infection, site not specified Status: Resolved Plan: Started on Rocephin for UTI, cultures now growing ESBL E. coli. ID recommends to DC Rocephin and await repeat urine analysis. Repeat UA unremarkable. Afebrile. Vital signs stable. CBC stable. (8) Black stools Code(s): K92.1 - Melena Status: Resolved Plan: Hemoccult and C. difficile negative on admission Resolved (9) History of DVT (deep vein thrombosis) Code(s): Z86.718 - Personal history of other venous thrombosis and embolism Status: Acute Plan: Patient with reported history of a DVT states that she was previously prescribed Xarelto No calf tenderness or positive Homans sign on physical exam Lovenox for DVT prophylaxis and will continue to monitor (10) Nausea & vomiting Code(s): R11.2 - Nausea with vomiting, unspecified Status: Acute Plan: Patient reporting significant nausea vomiting prior to arrival Continue Zofran, no electrolyte abnormalities on admission No vomiting appreciated. Patient has been asked to show any vomit to the nurse (11) Diabetes Code(s): E11.9 - Type 2 diabetes mellitus without complications Status: Acute Plan: Reportedly has a history of diabetes and been prescribed Lantus and Humulin sliding scale Low-dose sliding scale (12) Tobacco dependence Code(s): F17.200 - Nicotine dependence, unspecified, uncomplicated Status: Acute Plan: nicotine patch (13) Nutrition, metabolism, and development symptoms Code(s): R63.8 - Other symptoms and signs concerning food and fluid intake Status: Acute Plan: Regular diet No electrolyte abnormalities on admission Lovenox for DVT prophylaxis (14) Neck pain Code(s): M54.2 - Cervicalgia Status: Acute Plan: Exam is benign. Patient likes has a degenerative process. Patient states she is allergic to all NSAIDs Avoiding opiates as above K thermia added. <Toyin SandovalCarey - 03/14/18 14:05> (1) COPD (chronic obstructive pulmonary disease) Code(s): J44.9 - Chronic obstructive pulmonary disease, unspecified Status: Acute (2) Ovarian cancer Code(s): C56.9 - Malignant neoplasm of unspecified ovary Status: Acute (3) Depression Code(s): F32.9 - Major depressive disorder, single episode, unspecified Status : Acute (4) Alcohol withdrawal Code(s): F10.239 - Alcohol dependence with withdrawal, unspecified Status: Acute (5) Positive hepatitis test Code(s): R76.8 - Other specified abnormal immunological findings in serum Status: Acute (6) Hypertensive urgency Code(s): I16.0 - Hypertensive urgency Status: Acute (7) Diabetes Code(s): E11.9 - Type 2 diabetes mellitus without complications Status: Acute (8) UTI (urinary tract infection) Code(s): N39.0 - Urinary tract infection, site not specified Status: Resolved (9) Black stools Code(s): K92.1 - Melena Status: Resolved (10) History of DVT (deep vein thrombosis) Code(s): Z86.718 - Personal history of other venous thrombosis and embolism Status: Resolved (11) Nausea & vomiting Code(s): R11.2 - Nausea with vomiting, unspecified Status: Resolved (12) Tobacco dependence Code(s): F17.200 - Nicotine dependence, unspecified, uncomplicated Status: Acute (13) Nutrition, metabolism, and development symptoms Code(s): R63.8 - Other symptoms and signs concerning food and fluid intake Status: Acute <AnalyJami Aubrey - 03/20/18 09:44> - Assessment and Plan 62-year-old female with a history of COPD, diabetes, history of DVT, CAD, history of alcohol abuse presented to the ED with multiple complaints including nausea vomiting, falling recently, and alcohol withdrawal. UA on admission grew ESBL E. coli, consulted ID who recommended a repeat cathed urine she was asymptomatic. The repeat UA was normal she is not currently being treated on any antibiotics. Patient revealed that she has a history of ovarian cancer and states that she has been on hospice before. Palliative care consulted. <Carey Altamirano - 03/14/18 11:26> - Attending Attestation Pt seen and dw with the resident team. Agree with the assessment and plan. <Jami Beckford - 03/20/18 09:44> <Carey Altamirano - Last Filed: 03/14/18 14:05> (1) Alcohol withdrawal Qualifiers: Complication of substance-induced condition: with unspecified complication Qualified Code(s): F10.239 - Alcohol dependence with withdrawal, unspecified <Jami Beckford - Last Filed: 03/20/18 09:44> (4) Alcohol withdrawal Qualifiers: Complication of substance-induced condition: with unspecified complication Qualified Code(s): F10.239 - Alcohol dependence with withdrawal, unspecified <Toyin SandovalCarey - Last Filed: 03/14/18 14:05> (1) Alcohol withdrawal Qualifiers: Complication of substance-induced condition: with unspecified complication Qualified Code(s): F10.239 - Alcohol dependence with withdrawal, unspecified <Jami Beckford - Last Filed: 03/20/18 09:44> (4) Alcohol withdrawal Qualifiers: Complication of substance-induced condition: with unspecified complication Qualified Code(s): F10.239 - Alcohol dependence with withdrawal, unspecified
[2018-03-14] MEDS: Enoxaparin Inj 40 MG/0.4 ML Syringe SQ SCH (12:38)
[2018-03-15] MEDS: Insulin NovoLOG Aspart Correctional Sugar Inj SQ SCH ×4 (07:57→22:19)
--- NOTE | 2018-03-15 08:50 | P.PNFP ---
Subjective Interval history: No acute events overnight. Patient continues to state that she wants to go to a long-term facility where she could hopefully get on hospice. She also continues to ask for IV Ativan. She denies any chest pain and her shortness of breath has improved. She continues to endorse nausea and loose bowel movements. She states that she has been on Phenergan for years and that works better than Zofran. <Brennan Crooks - 03/15/18 08:49> Results - Labs Result diagrams: 03/14/18 09:25 03/14/18 09:27 <Alfonso Luong - 03/15/18 14:55> Abnormal lab results 03/09/18 03/14/18 03/14/18 Range/Units 21:20 16:16 21:54 POC Glucose 146 H 152 H (68-110) mg/dl Vitamin B6 Less than 2.0 L (2.1-21.7) ng/mL 03/15/18 03/15/18 Range/Units 07:28 11:45 POC Glucose 111 H 128 H (68-110) mg/dl Vitamin B6 (2.1-21.7) ng/mL <Alfonso Luong - 03/15/18 14:55> Abnormal lab results 03/14/18 03/14/18 03/14/18 Range/Units 09:25 09:27 09:41 Plt Count 131 L (150-450) th/mm3 Neut % (Auto) 71.6 H (16.0-70.0) % Haakon % (Auto) 12.5 H (0.0-8.0) % Lymph # (Auto) 0.6 L (1.0-4.8) th/mm3 Chloride 108 H (98-107) meq/L BUN 5 L (7-18) mg/dL Estimated GFR 79 L (>89) mL/min POC Glucose 169 H (68-110) mg/dl Random Glucose 113 H (74-106) mg/dL Calcium 8.2 L (8.5-10.1) mg/dL 03/14/18 03/14/18 03/14/18 Range/Units 11:42 16:16 21:54 Plt Count (150-450) th/mm3 Neut % (Auto) (16.0-70.0) % Haakon % (Auto) (0.0-8.0) % Lymph # (Auto) (1.0-4.8) th/mm3 Chloride (98-107) meq/L BUN (7-18) mg/dL Estimated GFR (>89) mL/min POC Glucose 162 H 146 H 152 H (68-110) mg/dl Random Glucose (74-106) mg/dL Calcium (8.5-10.1) mg/dL 03/15/18 Range/Units 07:28 Plt Count (150-450) th/mm3 Neut % (Auto) (16.0-70.0) % Haakon % (Auto) (0.0-8.0) % Lymph # (Auto) (1.0-4.8) th/mm3 Chloride (98-107) meq/L BUN (7-18) mg/dL Estimated GFR (>89) mL/min POC Glucose 111 H (68-110) mg/dl Random Glucose (74-106) mg/dL Calcium (8.5-10.1) mg/dL Short CBC 03/14/18 Range/Units 09:25 WBC 4.4 (4.0-11.0) th/mm3 Hgb 12.5 (11.6-15.3) gm/dL Hct 36.6 (35.0-46.0) % Plt Count 131 L (150-450) th/mm3 BMP 03/14/18 09:27 Sodium 145 Potassium 3.8 Chloride 108 H Carbon Dioxide 32.0 BUN 5 L Creatinine 0.74 Calcium 8.2 L <Brennan Crooks B - 03/15/18 08:49> Physical Exam Vital signs: Vital Signs 03/14/18 16:00 03/14/18 17:31 03/14/18 20:00 Temperature 98.7 F 98.6 F Pulse Rate 91 H 85 Respiratory Rate 20 20 Blood Pressure 148/77 H 146/77 H Pulse Oximetry 97 100 99 03/14/18 20:57 03/15/18 03:15 03/15/18 03:16 Temperature 98.6 F Pulse Rate 96 H Respiratory Rate 16 Blood Pressure 146/77 H 154/68 H 141/72 H Pulse Oximetry 99 03/15/18 03:17 03/15/18 04:00 03/15/18 04:10 Temperature 98.1 F Pulse Rate 71 70 Respiratory Rate 20 Blood Pressure 143/67 H 156/56 H Pulse Oximetry 99 03/15/18 07:25 03/15/18 08:00 03/15/18 11:48 Temperature 98.5 F 98.5 F Pulse Rate 69 78 70 Respiratory Rate 18 14 Blood Pressure 154/67 H 172/71 H Pulse Oximetry 99 94 L 03/15/18 13:09 Temperature Pulse Rate Respiratory Rate Blood Pressure Pulse Oximetry 95 Intake & Output 03/14/18 03/15/18 03/15/18 18:59 06:59 18:59 Intake Total 1000 / 1000 1000 / 1000 1000 / 1000 Output Total 2 / 2 Balance 1000 / 1000 998 / 998 1000 / 1000 Weight 79.9 kg Intake: IV 1000 / 1000 1000 / 1000 1000 / 1000 NS Inj 1,000 ML @ 100 mls/hr IV 1000 / 1000 1000 / 1000 1000 / 1000 .CONT .Q10H [facility] Rx#:[id number] Output: Urine 2 / 2 Other: Date of Last Bowel Movement 03/14/18 03/14/18 03/15/18 <Alfonso Luong - 03/15/18 14:55> Vital Signs 03/14/18 11:53 03/14/18 12:00 03/14/18 16:00 Temperature 97.6 F 98.7 F Pulse Rate 75 91 H Respiratory Rate 20 20 Blood Pressure 141/76 H 148/77 H Pulse Oximetry 98 100 97 03/14/18 17:31 03/14/18 20:00 03/14/18 20:57 Temperature 98.6 F 98.6 F Pulse Rate 85 96 H Respiratory Rate 20 16 Blood Pressure 146/77 H 146/77 H Pulse Oximetry 100 99 99 03/15/18 03:15 03/15/18 03:16 03/15/18 03:17 Temperature Pulse Rate Respiratory Rate Blood Pressure 154/68 H 141/72 H 143/67 H Pulse Oximetry 03/15/18 04:00 03/15/18 04:10 03/15/18 07:25 Temperature 98.1 F 98.5 F Pulse Rate 71 70 69 Respiratory Rate 20 18 Blood Pressure 156/56 H 154/67 H Pulse Oximetry 99 99 Intake & Output 03/14/18 03/15/18 03/15/18 18:59 06:59 18:59 Intake Total 1000 / 1000 1000 / 1000 Output Total 2 / 2 Balance 1000 / 1000 998 / 998 Weight 79.9 kg Intake: IV 1000 / 1000 1000 / 1000 NS Inj 1,000 ML @ 100 mls/hr IV 1000 / 1000 1000 / 1000 .CONT .Q10H [facility] Rx#:[id number] Output: Urine 2 / 2 Other: Date of Last Bowel Movement 03/14/18 03/14/18 03/15/18 <Brennan Crooks - 03/15/18 08:49> Narrative: GENERAL: Well-nourished well-developed, sitting upright in bed with no nasal cannula in place. SKIN: Cool and dry, no generalized rash. Hoarse voice and appears to be baseline HEAD: Atraumatic. Normocephalic. No temporal or scalp tenderness. ENT: Nothing abnormal detected NECK: Trachea midline. Supple, nontender, no meningeal signs. CARDIOVASCULAR: Regular rate and rhythm, S1 and S2 appreciated. No murmurs, rubs or gallops. RESPIRATORY: Expiratory wheezing/coarse breath sound auscultated bilaterally throughout all lung rojas -improved from prior exam. GASTROINTESTINAL: Abdomen soft nontender. MUSCULOSKELETAL: Extremities without clubbing, cyanosis. 5x1 cm healing dark bruise on the L lower back. NEUROLOGICAL: Alert oriented 3. Nonfocal. Psych flat affect, poor judgment, poor insight. <Brennan Crooks - 03/15/18 08:49> Assessment and Plan - Assessment (1) Alcohol withdrawal Code(s): F10.239 - Alcohol dependence with withdrawal, unspecified Status: Acute (2) Ovarian cancer Code(s): C56.9 - Malignant neoplasm of unspecified ovary Status: Acute (3) Depression Code(s): F32.9 - Major depressive disorder, single episode, unspecified Status : Acute (4) COPD (chronic obstructive pulmonary disease) Code(s): J44.9 - Chronic obstructive pulmonary disease, unspecified Status: Acute (5) Positive hepatitis test Code(s): R76.8 - Other specified abnormal immunological findings in serum Status: Acute (6) Hypertensive urgency Code(s): I16.0 - Hypertensive urgency Status: Acute (7) UTI (urinary tract infection) Code(s): N39.0 - Urinary tract infection, site not specified Status: Resolved (8) Black stools Code(s): K92.1 - Melena Status: Resolved (9) History of DVT (deep vein thrombosis) Code(s): Z86.718 - Personal history of other venous thrombosis and embolism Status: Acute (10) Nausea & vomiting Code(s): R11.2 - Nausea with vomiting, unspecified Status: Acute (11) Diabetes Code(s): E11.9 - Type 2 diabetes mellitus without complications Status: Acute (12) Tobacco dependence Code(s): F17.200 - Nicotine dependence, unspecified, uncomplicated Status: Acute (13) Nutrition, metabolism, and development symptoms Code(s): R63.8 - Other symptoms and signs concerning food and fluid intake Status: Acute <Alfonso Luong - 03/15/18 14:55> (1) Alcohol withdrawal Code(s): F10.239 - Alcohol dependence with withdrawal, unspecified Status: Acute Plan: Day 8 of withdrawal. No tremors today at bedside. A&O. Last CIWA score 1. Patient is currently past the stages of withdrawal. Is medically stable for discharge. Discharge pending case management placement of long-term care facility. Continue gabapentin 300 mg 3 times daily. Celexa 40 mg daily. (2) Ovarian cancer Code(s): C56.9 - Malignant neoplasm of unspecified ovary Status: Acute Plan: Patient revealed that she has a history of ovarian cancer Patient expressing desire for hospice currently Palliative care consult While patient is not a candidate for a SNF, CM is helping to help her establish with a retirement care facility and at that time she may be able to go on hospice (3) Depression Code(s): F32.9 - Major depressive disorder, single episode, unspecified Status : Acute Plan: Celexa 40 (4) COPD (chronic obstructive pulmonary disease) Code(s): J44.9 - Chronic obstructive pulmonary disease, unspecified Status: Acute Plan: Patient has been refusing duo nebs treatment Spiriva daily Home walk test ordered and patient will require 3 L nasal cannula continuous at time of discharge, ordered (5) Positive hepatitis test Code(s): R76.8 - Other specified abnormal immunological findings in serum Status: Acute Plan: Patient positive for hepatitis B and C Hepatitis B quant: 1 billion Hep C quant: 2930. HIV negative. Liver ultrasound shows: Unremarkable. Will need follow-up with GI at discharge (6) Hypertensive urgency Code(s): I16.0 - Hypertensive urgency Status: Acute Plan: Pressure still mildly elevated: 162/72 Patient on clonidine 0.1 mg as needed. Continue lisinopril 20 mg daily. Continue to monitor. (7) UTI (urinary tract infection) Code(s): N39.0 - Urinary tract infection, site not specified Status: Resolved Plan: Started on Rocephin for UTI, cultures now growing ESBL E. coli. ID recommends to DC Rocephin and await repeat urine analysis. Repeat UA unremarkable. Afebrile. Vital signs stable. CBC stable. (8) Black stools Code(s): K92.1 - Melena Status: Resolved Plan: Hemoccult and C. difficile negative on admission Resolved (9) History of DVT (deep vein thrombosis) Code(s): Z86.718 - Personal history of other venous thrombosis and embolism Status: Acute Plan: Patient with reported history of a DVT states that she was previously prescribed Xarelto No calf tenderness or positive Homans sign on physical exam Lovenox for DVT prophylaxis and will continue to monitor (10) Nausea & vomiting Code(s): R11.2 - Nausea with vomiting, unspecified Status: Acute Plan: No vomiting appreciated. Patient has been asked to show any vomit to the nurse Phenergan PRN (11) Diabetes Code(s): E11.9 - Type 2 diabetes mellitus without complications Status: Acute Plan: Reportedly has a history of diabetes and been prescribed Lantus and Humulin sliding scale Low-dose sliding scale (12) Tobacco dependence Code(s): F17.200 - Nicotine dependence, unspecified, uncomplicated Status: Acute Plan: nicotine patch (13) Nutrition, metabolism, and development symptoms Code(s): R63.8 - Other symptoms and signs concerning food and fluid intake Status: Acute Plan: Regular diet No electrolyte abnormalities on admission Lovenox for DVT prophylaxis <Brennan Crooks - 03/15/18 12:27> - Assessment and Plan 62-year-old female with a history of COPD, diabetes, history of DVT, CAD, history of alcohol abuse presented to the ED with multiple complaints including nausea vomiting, falling recently, and alcohol withdrawal. UA on admission grew ESBL E. coli, consulted ID who recommended a repeat cathed urine she was asymptomatic. The repeat UA was normal she is not currently being treated on any antibiotics. Patient revealed that she has a history of ovarian cancer and states that she has been on hospice before. Palliative care consulted. Medically she is not a candidate for a SNF, but she failed her home walk test and has no established home/address so CM is working to get her established with a retirement care facility. <Brennan Crooks - 03/15/18 09:21> - Attending Attestation Patient examined independently of resident physicians and patient case discussed with resident physician I have read the above note and agree with the assessment/plan as discussed with me I was involved in all medical decision making for this patient Alfonso Luong MD <Alfonso Luong - 03/15/18 14:55> <Brennan Crooks B - Last Filed: 03/15/18 12:27> (1) Alcohol withdrawal Qualifiers: Complication of substance-induced condition: with unspecified complication Qualified Code(s): F10.239 - Alcohol dependence with withdrawal, unspecified <Alfonso Luong - Last Filed: 03/15/18 14:55> (1) Alcohol withdrawal Qualifiers: Complication of substance-induced condition: with unspecified complication Qualified Code(s): F10.239 - Alcohol dependence with withdrawal, unspecified <Brennan Crooks - Last Filed: 03/15/18 12:27> (1) Alcohol withdrawal Qualifiers: Complication of substance-induced condition: with unspecified complication Qualified Code(s): F10.239 - Alcohol dependence with withdrawal, unspecified <Alfonso Luong - Last Filed: 03/15/18 14:55> (1) Alcohol withdrawal Qualifiers: Complication of substance-induced condition: with unspecified complication Qualified Code(s): F10.239 - Alcohol dependence with withdrawal, unspecified
[2018-03-15] MEDS: Gabapentin 300 MG Capsule PO SCH ×3 (09:00→17:30)
[2018-03-15] MEDS: Lisinopril 20 MG Tablet PO SCH (09:00)
[2018-03-15] MEDS: Senna/Docusate Sodium 8.6/50 MG Tablet PO SCH ×2 (09:01→22:20)
[2018-03-15] MEDS: Citalopram 20 MG Tablet PO SCH (09:01)
[2018-03-15] MEDS: Tiotropium Bromide 18 MCG/ACT Inhaler INH SCH (09:01)
[2018-03-15] MEDS: Sod Chloride 0.9% Inj 1,000 ML IV.CONT SCH ×2 (09:02→21:00)
[2018-03-15] MEDS: Enoxaparin Inj 40 MG/0.4 ML Syringe SQ SCH (12:34)
[2018-03-16] MEDS: Sod Chloride 0.9% Inj 1,000 ML IV.CONT SCH ×2 (08:35→15:23)
[2018-03-16] MEDS: Insulin NovoLOG Aspart Correctional Sugar Inj SQ SCH ×4 (08:35→22:02)
[2018-03-16] MEDS: Lisinopril 20 MG Tablet PO SCH (08:36)
[2018-03-16] MEDS: Citalopram 20 MG Tablet PO SCH (08:37)
[2018-03-16] MEDS: Gabapentin 300 MG Capsule PO SCH ×3 (08:37→17:06)
[2018-03-16] MEDS: Senna/Docusate Sodium 8.6/50 MG Tablet PO SCH ×2 (08:37→22:02)
[2018-03-16] MEDS: Tiotropium Bromide 18 MCG/ACT Inhaler INH SCH (08:38)
--- NOTE | 2018-03-16 10:51 | P.PNFP ---
Subjective Interval history: Patient seen and examined at bedside this morning. She continues to complain about not getting her Ativan daily. Also complains of having back pain and would like a neurologic workup. When inquired about patient's hopes for a long-term care facility, patient states that she only would like to go to [place] because that is where her grandchildren reside. She denies any chest pain or abdominal pain or problems with diarrhea today. <Carey Deal - 03/16/18 13:45> Results - Labs Result diagrams: 03/14/18 09:25 03/14/18 09:27 <Alfonso Luong - 03/16/18 14:25> Abnormal lab results 03/15/18 03/16/18 03/16/18 Range/Units 22:06 08:22 11:28 POC Glucose 190 H 137 H 127 H (68-110) mg/dl <Alfonso Luong - 03/16/18 14:25> Abnormal lab results 03/09/18 03/15/18 03/15/18 Range/Units 21:20 11:45 22:06 POC Glucose 128 H 190 H (68-110) mg/dl Vitamin B6 Less than 2.0 L (2.1-21.7) ng/mL 03/16/18 Range/Units 08:22 POC Glucose 137 H (68-110) mg/dl Vitamin B6 (2.1-21.7) ng/mL <Carey Deal - 03/16/18 10:51> Physical Exam Vital signs: Vital Signs 03/15/18 15:46 03/15/18 18:34 03/15/18 18:37 Temperature 98.9 F Pulse Rate 69 Respiratory Rate 14 Blood Pressure 162/71 H 171/72 H 157/72 H Pulse Oximetry 98 03/15/18 19:55 03/15/18 20:00 03/16/18 00:00 Temperature 98.5 F 98.0 F Pulse Rate 63 76 62 Respiratory Rate 18 18 Blood Pressure 136/64 143/72 H Pulse Oximetry 98 98 03/16/18 00:16 03/16/18 01:23 03/16/18 04:00 Temperature 98.3 F Pulse Rate 65 77 67 Respiratory Rate 18 Blood Pressure 156/69 H 131/63 Pulse Oximetry 99 03/16/18 07:19 Temperature 97.9 F Pulse Rate 69 Respiratory Rate 19 Blood Pressure 131/91 H Pulse Oximetry 97 Intake & Output 03/15/18 03/16/18 03/16/18 18:59 06:59 18:59 Intake Total 1900 / 1900 1000 / 1000 Balance 1900 / 1900 1000 / 1000 Weight 80.7 kg Intake: IV 1900 / 1900 1000 / 1000 NS Inj 1,000 ML @ 100 mls/hr IV 1900 / 1900 1000 / 1000 .CONT .Q10H [facility] Rx#:[id number] Other: # Voids 3 Date of Last Bowel Movement 03/15/18 03/14/18 03/15/18 <Alfonso Luong - 03/16/18 14:25> Vital Signs 03/15/18 11:48 03/15/18 13:09 03/15/18 15:46 Temperature 98.5 F 98.9 F Pulse Rate 70 69 Respiratory Rate 14 14 Blood Pressure 172/71 H 162/71 H Pulse Oximetry 94 L 95 98 03/15/18 18:34 03/15/18 18:37 03/15/18 19:55 Temperature Pulse Rate 63 Respiratory Rate Blood Pressure 171/72 H 157/72 H Pulse Oximetry 03/15/18 20:00 03/16/18 00:00 03/16/18 00:16 Temperature 98.5 F 98.0 F Pulse Rate 76 62 65 Respiratory Rate 18 18 Blood Pressure 136/64 143/72 H Pulse Oximetry 98 98 03/16/18 01:23 03/16/18 04:00 03/16/18 07:19 Temperature 98.3 F 97.9 F Pulse Rate 77 67 69 Respiratory Rate 18 19 Blood Pressure 156/69 H 131/63 131/91 H Pulse Oximetry 99 97 Intake & Output 03/15/18 03/16/18 03/16/18 18:59 06:59 18:59 Intake Total 1900 / 1900 1000 / 1000 Balance [id number] 1000 / 1000 Weight 80.7 kg Intake: IV 1900 / 1900 1000 / 1000 NS Inj 1,000 ML @ 100 mls/hr IV 1900 / 1900 1000 / 1000 .CONT .Q10H [facility] Rx#:[id number] Other: # Voids 3 Date of Last Bowel Movement 03/15/18 03/14/18 03/15/18 <Carey Deal - 03/16/18 10:51> Narrative: GENERAL: Well-nourished well-developed, sitting upright in bed with no nasal cannula in place. SKIN: Cool and dry, no generalized rash. Hoarse voice and appears to be baseline HEAD: Atraumatic. Normocephalic. No temporal or scalp tenderness. ENT: Nothing abnormal detected NECK: Trachea midline. Supple, nontender, no meningeal signs. CARDIOVASCULAR: Regular rate and rhythm, S1 and S2 appreciated. No murmurs, rubs or gallops. RESPIRATORY: Expiratory wheezing/coarse breath sound auscultated bilaterally throughout all lung rojas -improved from prior exam. GASTROINTESTINAL: Abdomen soft nontender. MUSCULOSKELETAL: Extremities without clubbing, cyanosis. 5x1 cm healing dark bruise on the L lower back. NEUROLOGICAL: Alert oriented 3. Nonfocal. Psych flat affect, poor judgment, poor insight. <Carey Deal - 03/16/18 13:45> Assessment and Plan - Assessment (1) Alcohol withdrawal Code(s): F10.239 - Alcohol dependence with withdrawal, unspecified Status: Acute (2) Ovarian cancer Code(s): C56.9 - Malignant neoplasm of unspecified ovary Status: Acute (3) Depression Code(s): F32.9 - Major depressive disorder, single episode, unspecified Status : Acute (4) COPD (chronic obstructive pulmonary disease) Code(s): J44.9 - Chronic obstructive pulmonary disease, unspecified Status: Acute (5) Positive hepatitis test Code(s): R76.8 - Other specified abnormal immunological findings in serum Status: Acute (6) Hypertensive urgency Code(s): I16.0 - Hypertensive urgency Status: Acute (7) UTI (urinary tract infection) Code(s): N39.0 - Urinary tract infection, site not specified Status: Resolved (8) Black stools Code(s): K92.1 - Melena Status: Resolved (9) History of DVT (deep vein thrombosis) Code(s): Z86.718 - Personal history of other venous thrombosis and embolism Status: Acute (10) Nausea & vomiting Code(s): R11.2 - Nausea with vomiting, unspecified Status: Acute (11) Diabetes Code(s): E11.9 - Type 2 diabetes mellitus without complications Status: Acute (12) Tobacco dependence Code(s): F17.200 - Nicotine dependence, unspecified, uncomplicated Status: Acute (13) Nutrition, metabolism, and development symptoms Code(s): R63.8 - Other symptoms and signs concerning food and fluid intake Status: Acute <Alfonso Luong - 03/16/18 14:25> (1) Alcohol withdrawal Code(s): F10.239 - Alcohol dependence with withdrawal, unspecified Status: Acute Plan: Day 9 of withdrawal. No tremors today at bedside. A&O. Last CIWA score 1. Patient is currently past the stages of withdrawal. Is medically stable for discharge. Discharge pending case management placement of long-term care facility. Continue gabapentin 300 mg 3 times daily. Celexa 40 mg daily. (2) Ovarian cancer Code(s): C56.9 - Malignant neoplasm of unspecified ovary Status: Acute Plan: Patient revealed that she has a history of ovarian cancer Patient expressing desire for hospice currently Palliative care consult While patient is not a candidate for a SNF, CM is helping to help her establish with a care home care facility and at that time she may be able to go on hospice (3) Depression Code(s): F32.9 - Major depressive disorder, single episode, unspecified Status : Acute Plan: Celexa 40 (4) COPD (chronic obstructive pulmonary disease) Code(s): J44.9 - Chronic obstructive pulmonary disease, unspecified Status: Acute Plan: Patient has been refusing duo nebs treatment Spiriva daily Home walk test ordered and patient will require 3 L nasal cannula continuous at time of discharge, ordered (5) Positive hepatitis test Code(s): R76.8 - Other specified abnormal immunological findings in serum Status: Acute Plan: Patient positive for hepatitis B and C Hepatitis B quant: 1 billion Hep C quant: 2930. HIV negative. Liver ultrasound shows: Unremarkable. Will need follow-up with GI at discharge (6) Hypertensive urgency Code(s): I16.0 - Hypertensive urgency Status: Acute Plan: Pressure still mildly elevated: 162/72 Patient on clonidine 0.1 mg as needed. Continue lisinopril 20 mg daily. Continue to monitor. (7) UTI (urinary tract infection) Code(s): N39.0 - Urinary tract infection, site not specified Status: Resolved Plan: Started on Rocephin for UTI, cultures now growing ESBL E. coli. ID recommends to DC Rocephin and await repeat urine analysis. Repeat UA unremarkable. Afebrile. Vital signs stable. CBC stable. (8) Black stools Code(s): K92.1 - Melena Status: Resolved Plan: Hemoccult and C. difficile negative on admission Resolved (9) History of DVT (deep vein thrombosis) Code(s): Z86.718 - Personal history of other venous thrombosis and embolism Status: Acute Plan: Patient with reported history of a DVT states that she was previously prescribed Xarelto No calf tenderness or positive Homans sign on physical exam Lovenox for DVT prophylaxis and will continue to monitor (10) Nausea & vomiting Code(s): R11.2 - Nausea with vomiting, unspecified Status: Acute Plan: No vomiting appreciated. Patient has been asked to show any vomit to the nurse Phenergan PRN (11) Diabetes Code(s): E11.9 - Type 2 diabetes mellitus without complications Status: Acute Plan: Reportedly has a history of diabetes and been prescribed Lantus and Humulin sliding scale Low-dose sliding scale (12) Tobacco dependence Code(s): F17.200 - Nicotine dependence, unspecified, uncomplicated Status: Acute Plan: nicotine patch (13) Nutrition, metabolism, and development symptoms Code(s): R63.8 - Other symptoms and signs concerning food and fluid intake Status: Acute Plan: Regular diet No electrolyte abnormalities on admission Lovenox for DVT prophylaxis <Carey Deal - 03/16/18 13:52> - Assessment and Plan 62-year-old female with a history of COPD, diabetes, history of DVT, CAD, history of alcohol abuse presented to the ED with multiple complaints including nausea vomiting, falling recently, and alcohol withdrawal. UA on admission grew ESBL E. coli, consulted ID who recommended a repeat cathed urine she was asymptomatic. The repeat UA was normal she is not currently being treated on any antibiotics. Patient revealed that she has a history of ovarian cancer and states that she has been on hospice before. Palliative care consulted. Medically she is not a candidate for a SNF, but she failed her home walk test and has no established home/address so CM is working to get her established with a newborn hearing screener care facility. <Carey Deal - 03/16/18 10:51> - Attending Attestation Pt. examined and case discussed with resident physicians during medical rounds this morning I have examined the patient and agree with the assessment/plan as dictated above. I was involved in all medical decision making for this patient Alfonso Luong MD <Alfonso Luong - 03/16/18 14:25> <Carey Deal - Last Filed: 03/16/18 13:52> (1) Alcohol withdrawal Qualifiers: Complication of substance-induced condition: with unspecified complication Qualified Code(s): F10.239 - Alcohol dependence with withdrawal, unspecified <Alfonso Luong - Last Filed: 03/16/18 14:25> (1) Alcohol withdrawal Qualifiers: Complication of substance-induced condition: with unspecified complication Qualified Code(s): F10.239 - Alcohol dependence with withdrawal, unspecified <Carey Deal - Last Filed: 03/16/18 13:52> (1) Alcohol withdrawal Qualifiers: Complication of substance-induced condition: with unspecified complication Qualified Code(s): F10.239 - Alcohol dependence with withdrawal, unspecified <Alfonso Luong - Last Filed: 03/16/18 14:25> (1) Alcohol withdrawal Qualifiers: Complication of substance-induced condition: with unspecified complication Qualified Code(s): F10.239 - Alcohol dependence with withdrawal, unspecified
[2018-03-16] MEDS: Enoxaparin Inj 40 MG/0.4 ML Syringe SQ SCH (13:28)
--- NOTE | 2018-03-16 14:02 | P.PNADD ---
Addendum to Inpatient Note Additional information: TRANSFER OF CARE NOTE. 62-year-old female with a history of COPD, diabetes, history of DVT, CAD, history of alcohol abuse presented to the ED with multiple complaints including nausea vomiting, falling recently, and alcohol withdrawal. UA on admission grew ESBL E. coli, consulted ID who recommended a repeat catheterized urine since she was asymptomatic. The repeat UA was within normal limits, antibiotics were discontinued and ID signed off. She is not currently being treated on any antibiotics. She also has a history of COPD and had bilateral wheezes on respiratory exam but patient denied DuoNeb's and albuterol treatments. Patient currently on Spiriva daily. Is found to have hepatitis B and C positive titers and will follow up with GI as outpatient. She continued to be on CIWA protocol requiring 2 mg Ativan initially due to patient's history of delirium tremors. On day 6 of withdrawal Patient was then found to have 1 and a half pills of Ativan in bed. CIWA protocol was held and Ativan was held. Patient had not received Ativan for 24 hours before this incident. Psychiatry was consulted and did not recommend inpatient psych admission. Recommended avoiding benzodiazepines and starting gabapentin 3 times daily and Celexa 40 for anxiety. Patient revealed that she had a history of ovarian cancer and stated she was on hospice. Palliative care consulted and recommended hospice. Hospice recommended senior nursing facility with hospice. She is currently medically clear for discharge. Medically she is not a candidate for a SNF, but she failed her home walk test requiring oxygen and has no established home/address so CM is working to get her established with a intermediate card tender care facility. Continue to work with case management on placement. Stable for discharge.
[2018-03-17] MEDS: Gabapentin 300 MG Capsule PO SCH ×3 (08:53→18:11)
[2018-03-17] MEDS: Lisinopril 20 MG Tablet PO SCH (08:54)
[2018-03-17] MEDS: Tiotropium Bromide 18 MCG/ACT Inhaler INH SCH (08:56)
[2018-03-17] MEDS: Senna/Docusate Sodium 8.6/50 MG Tablet PO SCH ×2 (09:01→21:39)
[2018-03-17] MEDS: Insulin NovoLOG Aspart Correctional Sugar Inj SQ SCH ×4 (09:15→21:38)
[2018-03-17] MEDS: Sod Chloride 0.9% Inj 1,000 ML IV.CONT SCH ×3 (09:15→23:19)
[2018-03-17] MEDS: Citalopram 20 MG Tablet PO SCH (09:16)
--- NOTE | 2018-03-17 09:39 | P.PNFP ---
Subjective Interval history: Patient seen at bedside this morning. Patient had no acute event overnight. Patient continues to experience shortness of breath. She reports that she has to sleep with multiple pillows in order to get any rest. Patient also reports pain in her upper incisors and request x-ray of the head to rule out infection. Discussion was had with patient that she currently does not have any signs of brain infection but will continue to monitor her pain. <Korey Menendez - 03/17/18 09:59> Results - Labs Result diagrams: 03/14/18 09:25 03/14/18 09:27 <Alfonso Luong - 03/17/18 17:26> Abnormal lab results 03/16/18 03/17/18 03/17/18 Range/Units 21:41 07:39 12:10 POC Glucose 169 H 149 H 117 H (68-110) mg/dl <Alfonso Luong - 03/17/18 17:26> Abnormal lab results 03/16/18 03/16/18 03/16/18 Range/Units 11:28 17:03 21:41 POC Glucose 127 H 114 H 169 H (68-110) mg/dl 03/17/18 Range/Units 07:39 POC Glucose 149 H (68-110) mg/dl <Korey Menendez - 03/17/18 09:39> Physical Exam Vital signs: Vital Signs 03/16/18 18:05 03/16/18 20:00 03/16/18 20:05 Temperature 98.4 F Pulse Rate 74 78 73 Respiratory Rate 18 Blood Pressure 148/85 H 165/70 H Pulse Oximetry 98 03/16/18 22:24 03/16/18 23:57 03/17/18 00:00 Temperature 98.4 F Pulse Rate 71 66 Respiratory Rate 18 Blood Pressure 142/65 H Pulse Oximetry 96 97 03/17/18 01:04 03/17/18 04:00 03/17/18 04:01 Temperature 98 F Pulse Rate 66 56 L Respiratory Rate 18 Blood Pressure 197/88 H 143/65 H Pulse Oximetry 96 03/17/18 07:49 03/17/18 10:51 03/17/18 11:08 Temperature 98.1 F Pulse Rate 62 Respiratory Rate 20 Blood Pressure 164/72 H 160/100 H Pulse Oximetry 98 98 03/17/18 11:42 03/17/18 15:34 Temperature 98.4 F 98.4 F Pulse Rate 80 62 Respiratory Rate 18 17 Blood Pressure 173/76 H 155/67 H Pulse Oximetry 95 96 Intake & Output 03/16/18 03/17/18 03/17/18 18:59 06:59 18:59 Intake Total 1999 1000 / 1000 Output Total 500 / 500 Balance 1500 / 1500 1000 / 1000 Intake: IV 1999 1000 / 1000 NS Inj 1,000 ML @ 100 mls/hr IV 1999 1000 / 1000 .CONT .Q10H JUANPABLO Rx#:[id number] Output: Urine 500 / 500 Other: Date of Last Bowel Movement 03/16/18 03/14/18 03/15/18 # Bowel Movements 1 <Alfonso Luong - 03/17/18 17:26> Vital Signs 03/16/18 12:46 03/16/18 15:23 03/16/18 18:05 Temperature 98.0 F 98.4 F Pulse Rate 77 85 74 Respiratory Rate 18 18 Blood Pressure 151/70 H 199/88 H 148/85 H Pulse Oximetry 97 97 03/16/18 20:00 03/16/18 20:05 03/16/18 22:24 Temperature 98.4 F Pulse Rate 78 73 Respiratory Rate 18 Blood Pressure 165/70 H Pulse Oximetry 98 96 03/16/18 23:57 03/17/18 00:00 03/17/18 01:04 Temperature 98.4 F Pulse Rate 71 66 Respiratory Rate 18 Blood Pressure 142/65 H 197/88 H Pulse Oximetry 97 03/17/18 04:00 03/17/18 04:01 03/17/18 07:49 Temperature 98 F 98.1 F Pulse Rate 66 56 L 62 Respiratory Rate 18 20 Blood Pressure 143/65 H 164/72 H Pulse Oximetry 96 98 Intake & Output 03/16/18 03/17/18 03/17/18 18:59 06:59 18:59 Intake Total 1999 1000 / 1000 Output Total 500 / 500 Balance 1500 / 1500 1000 / 1000 Intake: IV 1999 1000 / 1000 NS Inj 1,000 ML @ 100 mls/hr IV 1999 1000 / 1000 .CONT .Q10H J[facility]ANP[facility]LO Rx#:[id number] Output: Urine 500 / 500 Other: Date of Last Bowel Movement 03/16/18 03/14/18 # Bowel Movements 1 <Korey Menendez O - 03/17/18 09:39> Narrative: GENERAL: Well-nourished well-developed, sitting upright in bed with no nasal cannula in place. HEAD: Atraumatic. Normocephalic. No temporal or scalp tenderness. ENT: Multiple decayed and missing teeth both on the upper and lower mandible. Patient has no signs of erythema, swelling, or infection of the periodontal area. NECK: Trachea midline. Supple, nontender, no meningeal signs. CARDIOVASCULAR: Regular rate and rhythm, S1 and S2 appreciated. No murmurs, rubs or gallops. RESPIRATORY: Expiratory wheezing/coarse breath sound auscultated bilaterally throughout all lung rojas as well as rhonchorous upper airway sounds. MUSCULOSKELETAL: Extremities without clubbing, cyanosis. Pitting edema just over the ankles bilaterally. NEUROLOGICAL: Alert oriented 3. Nonfocal. Psych: Patient complains of pain and persistently asks for pain medication as well as an answer as to why she cannot receive pain medication at this time. <Korey Menendez O - 03/17/18 09:59> Assessment and Plan - Assessment (1) COPD (chronic obstructive pulmonary disease) Code(s): J44.9 - Chronic obstructive pulmonary disease, unspecified Status: Acute (2) Ovarian cancer Code(s): C56.9 - Malignant neoplasm of unspecified ovary Status: Acute (3) Alcohol withdrawal Code(s): F10.239 - Alcohol dependence with withdrawal, unspecified Status: Acute (4) Depression Code(s): F32.9 - Major depressive disorder, single episode, unspecified Status : Acute (5) Positive hepatitis test Code(s): R76.8 - Other specified abnormal immunological findings in serum Status: Acute (6) Hypertensive urgency Code(s): I16.0 - Hypertensive urgency Status: Acute (7) UTI (urinary tract infection) Code(s): N39.0 - Urinary tract infection, site not specified Status: Resolved (8) Black stools Code(s): K92.1 - Melena Status: Resolved (9) History of DVT (deep vein thrombosis) Code(s): Z86.718 - Personal history of other venous thrombosis and embolism Status: Acute (10) Nausea & vomiting Code(s): R11.2 - Nausea with vomiting, unspecified Status: Acute (11) Diabetes Code(s): E11.9 - Type 2 diabetes mellitus without complications Status: Acute (12) Tobacco dependence Code(s): F17.200 - Nicotine dependence, unspecified, uncomplicated Status: Acute (13) Nutrition, metabolism, and development symptoms Code(s): R63.8 - Other symptoms and signs concerning food and fluid intake Status: Acute <Alfonso Luong - 03/17/18 17:26> (1) COPD (chronic obstructive pulmonary disease) Code(s): J44.9 - Chronic obstructive pulmonary disease, unspecified Status: Acute Plan: Failed walk test currently requires outpatient O2 treatment but has no address. Currently on Spiriva. Will require 3 L nasal cannula continuous at time of discharge, ordered. Case management currently involved for disposition. (2) Ovarian cancer Code(s): C56.9 - Malignant neoplasm of unspecified ovary Status: Acute Plan: Patient revealed that she has a history of ovarian cancer Patient reports she does not want hospice. Palliative care consult While patient is not a candidate for a SNF, CM is helping to help her establish with a retirement care facility and at that time she may be able to go on hospice (3) Alcohol withdrawal Code(s): F10.239 - Alcohol dependence with withdrawal, unspecified Status: Acute Plan: Day 10 of withdrawal. No tremors today at bedside. A&O. Last CIWA score 2. Patient is currently past the stages of withdrawal. Is medically stable for discharge. Discharge pending case management placement of long-term care facility. Continue gabapentin 300 mg 3 times daily. Celexa 40 mg daily. (4) Depression Code(s): F32.9 - Major depressive disorder, single episode, unspecified Status : Acute Plan: Celexa 40 (5) Positive hepatitis test Code(s): R76.8 - Other specified abnormal immunological findings in serum Status: Acute Plan: Patient positive for hepatitis B and C Hepatitis B quant: 1 billion Hep C quant: 2930. HIV negative. Liver ultrasound shows: Unremarkable. Will need follow-up with GI at discharge (6) Hypertensive urgency Code(s): I16.0 - Hypertensive urgency Status: Acute Plan: Pressure still elevated: 197/88 Patient on clonidine 0.1 mg as needed. Continue lisinopril 20 mg daily. Continue to monitor. (7) UTI (urinary tract infection) Code(s): N39.0 - Urinary tract infection, site not specified Status: Resolved Plan: Started on Rocephin for UTI, cultures now growing ESBL E. coli. ID recommends to DC Rocephin and await repeat urine analysis. Repeat UA unremarkable. Afebrile. Vital signs stable. CBC stable. (8) Black stools Code(s): K92.1 - Melena Status: Resolved Plan: Hemoccult and C. difficile negative on admission Resolved (9) History of DVT (deep vein thrombosis) Code(s): Z86.718 - Personal history of other venous thrombosis and embolism Status: Acute Plan: Patient with reported history of a DVT states that she was previously prescribed Xarelto No calf tenderness or positive Homans sign on physical exam Lovenox for DVT prophylaxis and will continue to monitor (10) Nausea & vomiting Code(s): R11.2 - Nausea with vomiting, unspecified Status: Acute Plan: No vomiting appreciated. Patient has been asked to show any vomit to the nurse Phenergan PRN (11) Diabetes Code(s): E11.9 - Type 2 diabetes mellitus without complications Status: Acute Plan: Reportedly has a history of diabetes and been prescribed Lantus and Humulin sliding scale Low-dose sliding scale (12) Tobacco dependence Code(s): F17.200 - Nicotine dependence, unspecified, uncomplicated Status: Acute Plan: nicotine patch (13) Nutrition, metabolism, and development symptoms Code(s): R63.8 - Other symptoms and signs concerning food and fluid intake Status: Acute Plan: Regular diet No electrolyte abnormalities on admission Lovenox for DVT prophylaxis <Korey Menendez - 03/17/18 11:58> - Assessment and Plan 62-year-old female with a history of COPD, diabetes, history of DVT, CAD, history of alcohol abuse presented to the ED with multiple complaints including nausea vomiting, falling recently, and alcohol withdrawal. UA on admission grew ESBL E. coli, consulted ID who recommended a repeat cathed urine she was asymptomatic. The repeat UA was normal she is not currently being treated on any antibiotics. Patient revealed that she has a history of ovarian cancer and states that she has been on hospice before. Palliative care consulted. Medically she is not a candidate for a SNF, but she failed her home walk test and has no established home/address so CM is working to get her established with a retirement care facility. <Korey Menendez - 03/17/18 09:39> Discharge Planning: Patient case discussed with resident physicians I have independently examined the patient I have read the above note and agree with the assessment and plan as discussed with me I was involved in all medical decision making for this patient Alfonso Luong MD <Alfonso Luong - 03/17/18 17:26> <Korey Menendez O - Last Filed: 03/17/18 11:58> (3) Alcohol withdrawal Qualifiers: Complication of substance-induced condition: with unspecified complication Qualified Code(s): F10.239 - Alcohol dependence with withdrawal, unspecified <Alfonso Luong - Last Filed: 03/17/18 17:26> (3) Alcohol withdrawal Qualifiers: Complication of substance-induced condition: with unspecified complication Qualified Code(s): F10.239 - Alcohol dependence with withdrawal, unspecified <Korey Menendez - Last Filed: 03/17/18 11:58> (3) Alcohol withdrawal Qualifiers: Complication of substance-induced condition: with unspecified complication Qualified Code(s): F10.239 - Alcohol dependence with withdrawal, unspecified <Alfonso Luong - Last Filed: 03/17/18 17:26> (3) Alcohol withdrawal Qualifiers: Complication of substance-induced condition: with unspecified complication Qualified Code(s): F10.239 - Alcohol dependence with withdrawal, unspecified
[2018-03-17] MEDS: Enoxaparin Inj 40 MG/0.4 ML Syringe SQ SCH (12:14)
[2018-03-17] MEDS: Budesonide-Formoterol 160/4.5 MCG 6 GM Inhaler INH SCH (21:40)
[2018-03-18] MEDS: Senna/Docusate Sodium 8.6/50 MG Tablet PO SCH ×2 (08:25→21:54)
[2018-03-18] MEDS: Lisinopril 20 MG Tablet PO SCH (08:25)
[2018-03-18] MEDS: Citalopram 20 MG Tablet PO SCH (08:25)
[2018-03-18] MEDS: Gabapentin 300 MG Capsule PO SCH ×3 (08:25→17:46)
[2018-03-18] MEDS: Tiotropium Bromide 18 MCG/ACT Inhaler INH SCH (08:26)
[2018-03-18] MEDS: Insulin NovoLOG Aspart Correctional Sugar Inj SQ SCH ×4 (08:26→21:53)
[2018-03-18] MEDS: Budesonide-Formoterol 160/4.5 MCG 6 GM Inhaler INH SCH ×2 (08:26→22:48)
[2018-03-18] MEDS: Sod Chloride 0.9% Inj 1,000 ML IV.CONT SCH ×2 (08:36→17:46)
--- NOTE | 2018-03-18 10:00 | P.PNFP ---
Subjective Interval history: Patient was seen at bedside today. Patient reports continued difficulty breathing as well as a nonproductive cough. Patient expressed frustration at not being able to watch TV but reports that she wants to be discharged. A lengthy discussion was had about possible placement and discharge and whether she had a friend that could take her in. Patient reports that she does know people but believes that if she stays with them that she was somehow on the back on the street. I expressed to the patient that we want to see her discharged and back to her normal life. Patient had no further questions and reported understanding. <Korey Menendez - 03/18/18 11:35> Results - Labs Result diagrams: 03/14/18 09:25 03/14/18 09:27 <Alfonso Luong - 03/18/18 14:57> Abnormal lab results 03/18/18 03/18/18 Range/Units 00:55 12:26 POC Glucose 137 H 172 H (68-110) mg/dl <Alfonso Luong - 03/18/18 14:57> Abnormal lab results 03/17/18 03/18/18 Range/Units 12:10 00:55 POC Glucose 117 H 137 H (68-110) mg/dl <Korey Menendez - 03/18/18 10:00> Physical Exam Vital signs: Vital Signs 03/17/18 15:34 03/17/18 17:26 03/17/18 20:00 Temperature 98.4 F 98 F Pulse Rate 62 77 Respiratory Rate 17 18 Blood Pressure 155/67 H 146/83 H Pulse Oximetry 96 96 99 03/18/18 00:00 03/18/18 03:20 03/18/18 04:00 Temperature 98 F 98.3 F Pulse Rate 70 64 Respiratory Rate 20 16 18 Blood Pressure 161/73 H 149/65 H Pulse Oximetry 96 95 03/18/18 08:00 03/18/18 12:00 Temperature 98.1 F 98.4 F Pulse Rate 70 91 H Respiratory Rate 20 20 Blood Pressure 158/69 H 206/96 H Pulse Oximetry 96 99 Intake & Output 03/17/18 03/18/18 03/18/18 18:59 06:59 18:59 Intake Total 1000 / 1000 Balance 1000 / 1000 Weight 81.2 kg Intake: IV 1000 / 1000 NS Inj 1,000 ML @ 100 mls/hr IV 1000 / 1000 .CONT .Q10H [facility] Rx#:[id number] Other: # Voids 1 Date of Last Bowel Movement 03/15/18 03/17/18 03/17/18 <Alfonso Luong - 03/18/18 14:57> Vital Signs 03/17/18 10:51 03/17/18 11:08 03/17/18 11:42 Temperature 98.4 F Pulse Rate 80 Respiratory Rate 18 Blood Pressure 160/100 H 173/76 H Pulse Oximetry 98 95 03/17/18 15:34 03/17/18 17:26 03/17/18 20:00 Temperature 98.4 F 98 F Pulse Rate 62 77 Respiratory Rate 17 18 Blood Pressure 155/67 H 146/83 H Pulse Oximetry 96 96 99 03/18/18 00:00 03/18/18 03:20 03/18/18 04:00 Temperature 98 F 98.3 F Pulse Rate 70 64 Respiratory Rate 20 16 18 Blood Pressure 161/73 H 149/65 H Pulse Oximetry 96 95 03/18/18 08:00 Temperature 98.1 F Pulse Rate 70 Respiratory Rate 20 Blood Pressure 158/69 H Pulse Oximetry 94 L Intake & Output 03/17/18 03/18/18 03/18/18 18:59 06:59 18:59 Intake Total 1000 / 1000 Balance 1000 / 1000 Weight 81.2 kg Intake: IV 1000 / 1000 NS Inj 1,000 ML @ 100 mls/hr IV 1000 / 1000 .CONT .Q10H [facility]LO Rx#:[id number] Other: # Voids 1 Date of Last Bowel Movement 03/15/18 03/17/18 <Korey Menendez - 03/18/18 10:00> Narrative: GENERAL: Well-nourished well-developed, sitting upright in bed with nasal cannula in place that was not connected to oxygen. HEAD: Atraumatic. Normocephalic. ENT: Multiple decayed and missing teeth both on the upper and lower mandible. NECK: Trachea midline. Supple, nontender, no meningeal signs. CARDIOVASCULAR: Regular rate and rhythm, S1 and S2 appreciated. No murmurs, rubs or gallops. RESPIRATORY: Expiratory wheezing/coarse breath sound auscultated bilaterally throughout all lung rojas as well as rhonchorous upper airway sounds. MUSCULOSKELETAL: Extremities without clubbing, cyanosis. Pitting edema just over the ankles bilaterally. NEUROLOGICAL: Alert oriented 3. Nonfocal. Psych: Patient complains of pain and persistently asks for pain medication as well as why she is not being afforded certain amenities. <Korey Menendez Cristhian - 03/18/18 11:35> Assessment and Plan - Assessment (1) COPD (chronic obstructive pulmonary disease) Code(s): J44.9 - Chronic obstructive pulmonary disease, unspecified Status: Acute (2) Ovarian cancer Code(s): C56.9 - Malignant neoplasm of unspecified ovary Status: Acute (3) Alcohol withdrawal Code(s): F10.239 - Alcohol dependence with withdrawal, unspecified Status: Acute (4) Depression Code(s): F32.9 - Major depressive disorder, single episode, unspecified Status : Acute (5) Positive hepatitis test Code(s): R76.8 - Other specified abnormal immunological findings in serum Status: Acute (6) Hypertensive urgency Code(s): I16.0 - Hypertensive urgency Status: Acute (7) UTI (urinary tract infection) Code(s): N39.0 - Urinary tract infection, site not specified Status: Resolved (8) Black stools Code(s): K92.1 - Melena Status: Resolved (9) History of DVT (deep vein thrombosis) Code(s): Z86.718 - Personal history of other venous thrombosis and embolism Status: Acute (10) Nausea & vomiting Code(s): R11.2 - Nausea with vomiting, unspecified Status: Acute (11) Diabetes Code(s): E11.9 - Type 2 diabetes mellitus without complications Status: Acute (12) Tobacco dependence Code(s): F17.200 - Nicotine dependence, unspecified, uncomplicated Status: Acute (13) Nutrition, metabolism, and development symptoms Code(s): R63.8 - Other symptoms and signs concerning food and fluid intake Status: Acute <Alfonso Luong - 03/18/18 14:57> (1) COPD (chronic obstructive pulmonary disease) Code(s): J44.9 - Chronic obstructive pulmonary disease, unspecified Status: Acute Plan: Failed walk test currently requires outpatient O2 treatment but has no address. Currently on Spiriva. Will require 3 L nasal cannula continuous at time of discharge, ordered. Case management currently involved for disposition. 03/18 today patient was observed in the room satting 93% on room air. -Repeat home walk test (2) Ovarian cancer Code(s): C56.9 - Malignant neoplasm of unspecified ovary Status: Acute Plan: Patient revealed that she has a history of ovarian cancer Patient reports she does not want hospice. While patient is not a candidate for a SNF, CM is helping to help her establish with a skilled nursing care facility (3) Alcohol withdrawal Code(s): F10.239 - Alcohol dependence with withdrawal, unspecified Status: Acute Plan: Day 11 of withdrawal. No tremors today at bedside. A&O. Last CIWA score 0. Patient is currently past the stages of withdrawal. Is medically stable for discharge. Discharge pending case management placement of long-term care facility. Continue gabapentin 300 mg 3 times daily. Celexa 40 mg daily. (4) Depression Code(s): F32.9 - Major depressive disorder, single episode, unspecified Status : Acute Plan: Celexa 40 (5) Positive hepatitis test Code(s): R76.8 - Other specified abnormal immunological findings in serum Status: Acute Plan: Patient positive for hepatitis B and C Hepatitis B quant: 1 billion Hep C quant: 2930. HIV negative. Liver ultrasound shows: Unremarkable. Will need follow-up with GI at discharge (6) Hypertensive urgency Code(s): I16.0 - Hypertensive urgency Status: Acute Plan: Pressure still elevated: 197/88 Patient on clonidine 0.1 mg as needed. Continue lisinopril 20 mg daily. Continue to monitor. (7) UTI (urinary tract infection) Code(s): N39.0 - Urinary tract infection, site not specified Status: Resolved Plan: Started on Rocephin for UTI, cultures now growing ESBL E. coli. ID recommends to DC Rocephin and await repeat urine analysis. Repeat UA unremarkable. Afebrile. Vital signs stable. CBC stable. (8) Black stools Code(s): K92.1 - Melena Status: Resolved Plan: Hemoccult and C. difficile negative on admission Resolved (9) History of DVT (deep vein thrombosis) Code(s): Z86.718 - Personal history of other venous thrombosis and embolism Status: Acute Plan: Patient with reported history of a DVT states that she was previously prescribed Xarelto No calf tenderness or positive Homans sign on physical exam Lovenox for DVT prophylaxis and will continue to monitor (10) Nausea & vomiting Code(s): R11.2 - Nausea with vomiting, unspecified Status: Acute Plan: No vomiting appreciated. Patient has been asked to show any vomit to the nurse Soila IMXON (11) Diabetes Code(s): E11.9 - Type 2 diabetes mellitus without complications Status: Acute Plan: Reportedly has a history of diabetes and been prescribed Lantus and Humulin sliding scale Low-dose sliding scale (12) Tobacco dependence Code(s): F17.200 - Nicotine dependence, unspecified, uncomplicated Status: Acute Plan: nicotine patch (13) Nutrition, metabolism, and development symptoms Code(s): R63.8 - Other symptoms and signs concerning food and fluid intake Status: Acute Plan: Regular diet No electrolyte abnormalities on admission Lovenox for DVT prophylaxis <Korey Menendez - 03/18/18 11:28> - Assessment and Plan Case discussed with Dr. Luong and Dr. Orellana <Korey Menendez - 03/18/18 11:35> - Attending Attestation Patient case discussed with resident physicians I have independently examined the patient I have read the above note and agree with the assessment and plan as discussed with me I was involved in all medical decision making for this patient Alfonso Luong MD <Alfonso Luong - 03/18/18 14:57> <Korey Menendez - Last Filed: 03/18/18 11:28> (3) Alcohol withdrawal Qualifiers: Complication of substance-induced condition: with unspecified complication Qualified Code(s): F10.239 - Alcohol dependence with withdrawal, unspecified <Alfonso Luong - Last Filed: 03/18/18 14:57> (3) Alcohol withdrawal Qualifiers: Complication of substance-induced condition: with unspecified complication Qualified Code(s): F10.239 - Alcohol dependence with withdrawal, unspecified <Korey Menendez - Last Filed: 03/18/18 11:28> (3) Alcohol withdrawal Qualifiers: Complication of substance-induced condition: with unspecified complication Qualified Code(s): F10.239 - Alcohol dependence with withdrawal, unspecified <Alfonso Luong - Last Filed: 03/18/18 14:57> (3) Alcohol withdrawal Qualifiers: Complication of substance-induced condition: with unspecified complication Qualified Code(s): F10.239 - Alcohol dependence with withdrawal, unspecified
[2018-03-18] MEDS: Enoxaparin Inj 40 MG/0.4 ML Syringe SQ SCH (12:41)
[2018-03-19] MEDS: Sod Chloride 0.9% Inj 1,000 ML IV.CONT SCH ×2 (04:56→14:25)
[2018-03-19] MEDS: Insulin NovoLOG Aspart Correctional Sugar Inj SQ SCH ×4 (08:02→21:15)
--- NOTE | 2018-03-19 08:22 | P.PNFP ---
Subjective Interval history: This patient was seen at bedside this morning. There were no acute events overnight. This morning she reports continued coughing as well as productive sputum but is not experiencing any acute shortness of breath. Overall patient says she feels better and wants to go home. Discussion was had about the importance of a walk test in reference to her discharge. Patient agreed to complete walk test today. Patient had no further questions and reported understanding of our conversation. <Shon SandovalKorey Cristhian - 03/19/18 08:43> Results - Labs Result diagrams: 03/14/18 09:25 03/14/18 09:27 <CheriseAlfonso - 03/19/18 14:50> Abnormal lab results 03/18/18 03/19/18 Range/Units 20:26 08:01 POC Glucose 175 H 126 H (68-110) mg/dl <CheriseAlfonso - 03/19/18 14:50> Abnormal lab results 03/18/18 03/18/18 03/19/18 Range/Units 12:26 20:26 08:01 POC Glucose 172 H 175 H 126 H (68-110) mg/dl <Korey Garcia - 03/19/18 08:22> Physical Exam Vital signs: Vital Signs 03/18/18 16:00 03/18/18 17:57 03/18/18 20:00 Temperature 98.6 F 98.8 F Pulse Rate 89 83 Respiratory Rate 20 20 Blood Pressure 192/81 H 168/73 H Pulse Oximetry 99 99 96 03/18/18 21:57 03/18/18 22:26 03/19/18 00:00 Temperature 98.6 F 98.0 F Pulse Rate 74 Respiratory Rate 18 Blood Pressure 166/72 H 173/76 H 148/66 H Pulse Oximetry 95 03/19/18 04:12 03/19/18 06:53 03/19/18 06:56 Temperature 97.3 F L Pulse Rate 70 Respiratory Rate 16 18 Blood Pressure 147/67 H Pulse Oximetry 86 L 95 03/19/18 08:00 03/19/18 10:30 03/19/18 13:38 Temperature 98.3 F Pulse Rate 66 Respiratory Rate 16 Blood Pressure 131/58 L 181/82 H Pulse Oximetry 98 96 Intake & Output 03/18/18 03/19/18 03/19/18 18:59 06:59 18:59 Intake Total 1999 Balance 1999 Weight 79.1 kg Intake: IV 1000 / 1000 NS Inj 1,000 ML @ 100 mls/hr IV 1000 / 1000 .CONT .Q10H JUANPABLO Rx#:[id number] Oral 1000 / 1000 Other: # Voids 3 Date of Last Bowel Movement 03/17/18 03/17/18 03/17/18 <Alfonso Luong - 03/19/18 14:50> Vital Signs 03/18/18 12:00 03/18/18 16:00 03/18/18 17:57 Temperature 98.4 F 98.6 F Pulse Rate 91 H 89 Respiratory Rate 20 20 Blood Pressure 206/96 H 192/81 H Pulse Oximetry 99 99 99 03/18/18 20:00 03/18/18 21:57 03/18/18 22:26 Temperature 98.8 F 98.6 F Pulse Rate 83 Respiratory Rate 20 Blood Pressure 168/73 H 166/72 H 173/76 H Pulse Oximetry 96 03/19/18 00:00 03/19/18 04:12 03/19/18 06:53 Temperature 98.0 F 97.3 F L Pulse Rate 74 70 Respiratory Rate 18 16 18 Blood Pressure 148/66 H 147/67 H Pulse Oximetry 95 86 L 03/19/18 06:56 Temperature Pulse Rate Respiratory Rate Blood Pressure Pulse Oximetry 95 Intake & Output 03/18/18 03/19/18 03/19/18 18:59 06:59 18:59 Intake Total 1999 Balance 1999 Weight 79.1 kg Intake: IV 1000 / 1000 NS Inj 1,000 ML @ 100 mls/hr IV 1000 / 1000 .CONT .Q10H JUANPABLO Rx#:[id number] Oral 1000 / 1000 Other: # Voids 3 Date of Last Bowel Movement 03/17/18 03/17/18 <Korey Garcia O - 03/19/18 08:22> Narrative: GENERAL: Well-nourished well-developed, sitting upright in bed with nasal cannula in place. HEAD: Atraumatic. Normocephalic. ENT: Multiple decayed and missing teeth both on the upper and lower mandible. CARDIOVASCULAR: Regular rate and rhythm, S1 and S2 appreciated. No murmurs, rubs or gallops. RESPIRATORY: Expiratory wheezing/coarse breath sound auscultated bilaterally throughout all lung rojas as well as rhonchorous upper airway sounds. MUSCULOSKELETAL: Extremities without clubbing, cyanosis. Pitting edema just over the ankles bilaterally. NEUROLOGICAL: Alert oriented 3. Nonfocal. Psych: Calm but insistent. Appropriate mood and affect. Patient continues to express frustration about the amenities in the room. It was discussed with her they were trying to get her discharged back to her normal life. <Menendez Korey Sandoval Cristhian - 03/19/18 08:43> Assessment and Plan - Assessment (1) COPD (chronic obstructive pulmonary disease) Code(s): J44.9 - Chronic obstructive pulmonary disease, unspecified Status: Acute (2) Ovarian cancer Code(s): C56.9 - Malignant neoplasm of unspecified ovary Status: Acute (3) Depression Code(s): F32.9 - Major depressive disorder, single episode, unspecified Status : Acute (4) Alcohol withdrawal Code(s): F10.239 - Alcohol dependence with withdrawal, unspecified Status: Acute (5) Positive hepatitis test Code(s): R76.8 - Other specified abnormal immunological findings in serum Status: Acute (6) Hypertensive urgency Code(s): I16.0 - Hypertensive urgency Status: Acute (7) Diabetes Code(s): E11.9 - Type 2 diabetes mellitus without complications Status: Acute (8) UTI (urinary tract infection) Code(s): N39.0 - Urinary tract infection, site not specified Status: Resolved (9) Black stools Code(s): K92.1 - Melena Status: Resolved (10) History of DVT (deep vein thrombosis) Code(s): Z86.718 - Personal history of other venous thrombosis and embolism Status: Resolved (11) Nausea & vomiting Code(s): R11.2 - Nausea with vomiting, unspecified Status: Resolved (12) Tobacco dependence Code(s): F17.200 - Nicotine dependence, unspecified, uncomplicated Status: Acute (13) Nutrition, metabolism, and development symptoms Code(s): R63.8 - Other symptoms and signs concerning food and fluid intake Status: Acute <Alfonso Luong - 03/19/18 14:50> (1) COPD (chronic obstructive pulmonary disease) Code(s): J44.9 - Chronic obstructive pulmonary disease, unspecified Status: Acute Plan: Failed walk test currently requires outpatient O2 treatment but has no address. Currently on Spiriva. Will require 3 L nasal cannula continuous at time of discharge, ordered. Case management currently involved for disposition. 03/19 today patient was observed in the room satting 95% on room air. -Repeat home walk test (2) Ovarian cancer Code(s): C56.9 - Malignant neoplasm of unspecified ovary Status: Acute Plan: Patient revealed that she has a history of ovarian cancer Patient reports she does not want hospice. While patient is not a candidate for a SNF, CM is helping to help her establish with a emt intermediate care facility. Patient encouraged to contact friend for placement. (3) Depression Code(s): F32.9 - Major depressive disorder, single episode, unspecified Status : Acute Plan: Celexa 40 (4) Alcohol withdrawal Code(s): F10.239 - Alcohol dependence with withdrawal, unspecified Status: Acute Plan: Resolved. CIWA protocol discontinued. Is medically stable for discharge. Discharge pending case management placement of long-term care facility. Continue gabapentin 300 mg 3 times daily. Celexa 40 mg daily. (5) Positive hepatitis test Code(s): R76.8 - Other specified abnormal immunological findings in serum Status: Acute Plan: Patient positive for hepatitis B and C Hepatitis B quant: 1 billion Hep C quant: 2930. HIV negative. Liver ultrasound shows: Unremarkable. Will need follow-up with GI at discharge (6) Hypertensive urgency Code(s): I16.0 - Hypertensive urgency Status: Acute Plan: Pressure still elevated: 197/88 Patient on clonidine 0.1 mg as needed. Continue lisinopril 20 mg daily. Continue to monitor. (7) Diabetes Code(s): E11.9 - Type 2 diabetes mellitus without complications Status: Acute Plan: Reportedly has a history of diabetes and been prescribed Lantus and Humulin sliding scale Low-dose sliding scale (8) UTI (urinary tract infection) Code(s): N39.0 - Urinary tract infection, site not specified Status: Resolved Plan: Started on Rocephin for UTI, cultures grew ESBL E. coli. Repeat UA unremarkable. Afebrile. Vital signs stable. CBC stable. (9) Black stools Code(s): K92.1 - Melena Status: Resolved Plan: Hemoccult and C. difficile negative on admission Resolved (10) History of DVT (deep vein thrombosis) Code(s): Z86.718 - Personal history of other venous thrombosis and embolism Status: Resolved Plan: Patient with reported history of a DVT states that she was previously prescribed Xarelto No calf tenderness or positive Homans sign on physical exam Lovenox for DVT prophylaxis and will continue to monitor (11) Nausea & vomiting Code(s): R11.2 - Nausea with vomiting, unspecified Status: Resolved Plan: No vomiting appreciated. Patient has been asked to show any vomit to the nurse Soila PRN (12) Tobacco dependence Code(s): F17.200 - Nicotine dependence, unspecified, uncomplicated Status: Acute Plan: nicotine patch (13) Nutrition, metabolism, and development symptoms Code(s): R63.8 - Other symptoms and signs concerning food and fluid intake Status: Acute Plan: Regular diet No electrolyte abnormalities on admission Lovenox for DVT prophylaxis <Korey Garcia - 03/19/18 08:36> - Assessment and Plan Case discussed with Dr. Luong and Dr. Orellana <Korey Garcia - 03/19/18 08:22> - Attending Attestation Pt. examined independent of resident physicians this morning during medical rounds I have read the above note and agree with the assessment/plan as discussed with me I was involved in all medical decision making for this patient Alfonso Luong MD <Alfonso Luong - 03/19/18 14:50> <Korey Garcia Filed: 03/19/18 08:36> (4) Alcohol withdrawal Qualifiers: Complication of substance-induced condition: with unspecified complication Qualified Code(s): F10.239 - Alcohol dependence with withdrawal, unspecified <Alfonso Luong Filed: 03/19/18 14:50> (4) Alcohol withdrawal Qualifiers: Complication of substance-induced condition: with unspecified complication Qualified Code(s): F10.239 - Alcohol dependence with withdrawal, unspecified <Korey Garcia O - Last Filed: 03/19/18 08:36> (4) Alcohol withdrawal Qualifiers: Complication of substance-induced condition: with unspecified complication Qualified Code(s): F10.239 - Alcohol dependence with withdrawal, unspecified <Alfonso Luong - Last Filed: 03/19/18 14:50> (4) Alcohol withdrawal Qualifiers: Complication of substance-induced condition: with unspecified complication Qualified Code(s): F10.239 - Alcohol dependence with withdrawal, unspecified
[2018-03-19] MEDS: Senna/Docusate Sodium 8.6/50 MG Tablet PO SCH ×2 (09:08→20:59)
[2018-03-19] MEDS: Lisinopril 20 MG Tablet PO SCH (09:09)
[2018-03-19] MEDS: Tiotropium Bromide 18 MCG/ACT Inhaler INH SCH (09:09)
[2018-03-19] MEDS: Gabapentin 300 MG Capsule PO SCH ×3 (09:09→17:21)
[2018-03-19] MEDS: Citalopram 20 MG Tablet PO SCH (09:09)
[2018-03-19] MEDS: Budesonide-Formoterol 160/4.5 MCG 6 GM Inhaler INH SCH ×2 (09:10→20:59)
[2018-03-19] MEDS: Enoxaparin Inj 40 MG/0.4 ML Syringe SQ SCH (12:14)
[2018-03-20] MEDS: Sod Chloride 0.9% Inj 1,000 ML IV.CONT SCH ×2 (01:57→20:33)
[2018-03-20] MEDS: Citalopram 20 MG Tablet PO SCH (08:47)
[2018-03-20] MEDS: Gabapentin 300 MG Capsule PO SCH ×3 (08:48→17:20)
[2018-03-20] MEDS: Lisinopril 20 MG Tablet PO SCH (08:48)
[2018-03-20] MEDS: Insulin NovoLOG Aspart Correctional Sugar Inj SQ SCH ×4 (08:49→20:57)
[2018-03-20] MEDS: Senna/Docusate Sodium 8.6/50 MG Tablet PO SCH ×2 (08:53→20:58)
[2018-03-20] MEDS: Budesonide-Formoterol 160/4.5 MCG 6 GM Inhaler INH SCH ×2 (08:55→20:31)
[2018-03-20] MEDS: Tiotropium Bromide 18 MCG/ACT Inhaler INH SCH (08:56)
--- NOTE | 2018-03-20 10:40 | P.PNFP ---
Subjective Interval history: No new events. Satting 97% on room air. <Evie Lu N - 03/20/18 11:46> Results - Labs Result diagrams: 03/14/18 09:25 03/14/18 09:27 <Alfonso Luong - 03/20/18 15:34> Abnormal lab results 03/19/18 03/20/18 03/20/18 Range/Units 21:02 08:30 11:29 POC Glucose 194 H 139 H 209 H (68-110) mg/dl <Alfonso Luong - 03/20/18 15:34> Abnormal lab results 03/19/18 03/20/18 Range/Units 21:02 08:30 POC Glucose 194 H 139 H (68-110) mg/dl <Evie Lu N - 03/20/18 10:40> Physical Exam Vital signs: Vital Signs 03/19/18 15:40 03/19/18 15:52 03/19/18 17:48 Temperature 98.5 F Pulse Rate 70 Respiratory Rate 20 Blood Pressure 146/65 H Pulse Oximetry 95 94 L 94 L Pulse Oximetry [Resting on Room Air] Pulse Oximetry [Resting with Oxygen] 03/19/18 20:00 03/20/18 00:00 03/20/18 08:00 Temperature 98.2 F 97.8 F 98.0 F Pulse Rate 77 62 69 Respiratory Rate 20 20 18 Blood Pressure 122/61 131/65 121/82 Pulse Oximetry 96 97 97 Pulse Oximetry [Resting on Room Air] Pulse Oximetry [Resting with Oxygen] 03/20/18 09:09 03/20/18 12:00 03/20/18 14:18 Temperature 98.2 F Pulse Rate 83 Respiratory Rate 20 Blood Pressure 167/71 H Pulse Oximetry 95 98 Pulse Oximetry [Resting on Room Air] 86 L Pulse Oximetry [Resting with Oxygen] 97 Intake & Output 03/19/18 03/20/18 03/20/18 18:59 06:59 18:59 Intake Total 280 / 280 Balance 280 / 280 Weight 78.1 kg Intake: Oral 280 / 280 Other: # Voids 2 Date of Last Bowel Movement 03/17/18 03/19/18 <Alfonso Luong - 03/20/18 15:34> Vital Signs 03/19/18 13:38 03/19/18 15:40 03/19/18 15:52 Temperature 98.5 F Pulse Rate 70 Respiratory Rate 20 Blood Pressure 181/82 H 146/65 H Pulse Oximetry 95 94 L 03/19/18 17:48 03/19/18 20:00 03/20/18 00:00 Temperature 98.2 F 97.8 F Pulse Rate 77 62 Respiratory Rate 20 20 Blood Pressure 122/61 131/65 Pulse Oximetry 94 L 96 97 03/20/18 08:00 03/20/18 09:09 Temperature 98.0 F Pulse Rate 69 Respiratory Rate 18 Blood Pressure 121/82 Pulse Oximetry 97 95 Intake & Output 03/19/18 03/20/18 03/20/18 18:59 06:59 18:59 Intake Total 280 / 280 Balance 280 / 280 Weight 78.1 kg Intake: Oral 280 / 280 Other: # Voids 2 Date of Last Bowel Movement 03/17/18 03/19/18 <Reyna EllisonEvie N - 03/20/18 10:40> Narrative: GENERAL: Well-nourished well-developed, sitting upright in bed with nasal cannula in place. No O2 connected. HEAD: Atraumatic. Normocephalic. ENT: Multiple decayed and missing teeth both on the upper and lower mandible. CARDIOVASCULAR: Regular rate and rhythm, S1 and S2 appreciated. RESPIRATORY: Improved airway sounds, occasional rhonchi that clear after coughing MUSCULOSKELETAL: normal ROM, no cyanosis NEUROLOGICAL: Nonfocal. <Reyna Evie Ellison N - 03/20/18 11:46> Assessment and Plan - Assessment (1) COPD (chronic obstructive pulmonary disease) Code(s): J44.9 - Chronic obstructive pulmonary disease, unspecified Status: Acute (2) Ovarian cancer Code(s): C56.9 - Malignant neoplasm of unspecified ovary Status: Acute (3) Depression Code(s): F32.9 - Major depressive disorder, single episode, unspecified Status : Acute (4) Positive hepatitis test Code(s): R76.8 - Other specified abnormal immunological findings in serum Status: Acute (5) Diabetes Code(s): E11.9 - Type 2 diabetes mellitus without complications Status: Acute (6) History of DVT (deep vein thrombosis) Code(s): Z86.718 - Personal history of other venous thrombosis and embolism Status: Resolved (7) Tobacco dependence Code(s): F17.200 - Nicotine dependence, unspecified, uncomplicated Status: Acute (8) Nutrition, metabolism, and development symptoms Code(s): R63.8 - Other symptoms and signs concerning food and fluid intake Status: Acute <Alfonso Luong - 03/20/18 15:34> (1) COPD (chronic obstructive pulmonary disease) Code(s): J44.9 - Chronic obstructive pulmonary disease, unspecified Status: Acute Plan: Failed walk test currently requires outpatient O2 treatment but has no address. Currently on Spiriva. 3 L nasal cannula continuous O2 ordered for use after time of discharge. Case management currently involved for disposition. Satting well overnight -Con't to try to repeat home walk test (2) Ovarian cancer Code(s): C56.9 - Malignant neoplasm of unspecified ovary Status: Acute Plan: Patient revealed that she has a history of ovarian cancer Patient reports she does not want hospice. While patient is not a candidate for a SNF, CM is helping to help her establish with a nursing home care facility. Patient encouraged to contact friend for placement. (3) Depression Code(s): F32.9 - Major depressive disorder, single episode, unspecified Status : Acute Plan: Celexa (home med) (4) Positive hepatitis test Code(s): R76.8 - Other specified abnormal immunological findings in serum Status: Acute Plan: Patient positive for hepatitis B and C Hepatitis B quant: 1 billion Hep C quant: 2930. HIV negative. Liver ultrasound shows: Unremarkable. Will need follow-up with GI at discharge (5) Diabetes Code(s): E11.9 - Type 2 diabetes mellitus without complications Status: Acute Plan: Reportedly has a history of diabetes and been prescribed Lantus and Humulin sliding scale Low-dose sliding scale (6) History of DVT (deep vein thrombosis) Code(s): Z86.718 - Personal history of other venous thrombosis and embolism Status: Resolved Plan: Patient with reported history of a DVT states that she was previously prescribed Xarelto Lovenox for DVT prophylaxis and will continue to monitor (7) Tobacco dependence Code(s): F17.200 - Nicotine dependence, unspecified, uncomplicated Status: Acute Plan: con't nicotine patches (8) Nutrition, metabolism, and development symptoms Code(s): R63.8 - Other symptoms and signs concerning food and fluid intake Status: Acute Plan: Regular diet No electrolyte abnormalities on admission Lovenox for DVT prophylaxis <Evie Lu 03/20/18 11:39> - Assessment and Plan Case discussed with Dr. Luong and Dr. Orellana <Evie Lu 03/20/18 10:40> Discharge Planning: Clear for DC. Seeking CM assistance. <Evie Lu 03/20/18 11:46> - Attending Attestation Patient case discussed with resident physicians I have independently examined the patient I have read the above note and agree with the assessment and plan as discussed with me I was involved in all medical decision making for this patient Alfonso Luong MD <Alfonso Luong - 03/20/18 15:34> <Evie Lu - Last Filed: 03/20/18 11:39> (5) Diabetes Qualifiers: Diabetes mellitus type: type 2 Diabetes mellitus termite exterminator helper insulin use: unspecified nursing home insulin use status Diabetes mellitus complication status : with unspecified complications Qualified Code(s): E11.8 - Type 2 diabetes mellitus with unspecified complications <Alfonso Luong - Last Filed: 03/20/18 15:34> (5) Diabetes Qualifiers: Diabetes mellitus type: type 2 Diabetes mellitus nursing home insulin use: unspecified termite exterminator helper insulin use status Diabetes mellitus complication status : with unspecified complications Qualified Code(s): E11.8 - Type 2 diabetes mellitus with unspecified complications <Evie Lu - Last Filed: 03/20/18 11:39> (5) Diabetes Qualifiers: Diabetes mellitus type: type 2 Diabetes mellitus termite exterminator helper insulin use: unspecified nursing home insulin use status Diabetes mellitus complication status : with unspecified complications Qualified Code(s): E11.8 - Type 2 diabetes mellitus with unspecified complications <Alfonso Luong - Last Filed: 03/20/18 15:34> (5) Diabetes Qualifiers: Diabetes mellitus type: type 2 Diabetes mellitus nursing home insulin use: unspecified termite exterminator helper insulin use status Diabetes mellitus complication status : with unspecified complications Qualified Code(s): E11.8 - Type 2 diabetes mellitus with unspecified complications
[2018-03-20] MEDS: Enoxaparin Inj 40 MG/0.4 ML Syringe SQ SCH (12:26)
[2018-03-21 08:52] VITALS: BP 148/67; PULSE 69; RESP 20; TEMP 98.2; O2SAT 93
[2018-03-21] MEDS: Gabapentin 300 MG Capsule PO SCH (09:26)
[2018-03-21] MEDS: Lisinopril 20 MG Tablet PO SCH (09:26)
[2018-03-21] MEDS: Tiotropium Bromide 18 MCG/ACT Inhaler INH SCH (09:28)
[2018-03-21] MEDS: Citalopram 20 MG Tablet PO SCH (09:29)
[2018-03-21] MEDS: Senna/Docusate Sodium 8.6/50 MG Tablet PO SCH (09:29)
[2018-03-21] MEDS: Insulin NovoLOG Aspart Correctional Sugar Inj SQ SCH (09:29)
[2018-03-21] MEDS: Budesonide-Formoterol 160/4.5 MCG 6 GM Inhaler INH SCH (09:30)
--- NOTE | 2018-03-21 10:27 | P.PNFP ---
Subjective Interval history: No acute events overnight. CM preparing for DC to hot today. <Judyaretha Evie Ellison N - 03/21/18 10:27> Results - Labs Result diagrams: 03/14/18 09:25 03/14/18 09:27 <CheriseAlfonso - 03/21/18 11:05> Abnormal lab results 03/20/18 03/20/18 03/20/18 Range/Units 11:29 16:30 20:57 POC Glucose 209 H 159 H 128 H (68-110) mg/dl 03/21/18 Range/Units 08:58 POC Glucose 136 H (68-110) mg/dl <Alfonso Luong - 03/21/18 11:05> Abnormal lab results 03/20/18 03/20/18 03/20/18 Range/Units 11:29 16:30 20:57 POC Glucose 209 H 159 H 128 H (68-110) mg/dl 03/21/18 Range/Units 08:58 POC Glucose 136 H (68-110) mg/dl <Judyaretha Evie Ellison N - 03/21/18 10:27> Physical Exam Vital signs: Vital Signs 03/20/18 12:00 03/20/18 14:18 03/20/18 16:00 Temperature 98.2 F 98.7 F Pulse Rate 83 87 Respiratory Rate 20 18 Blood Pressure 167/71 H 187/79 H Pulse Oximetry 98 99 Pulse Oximetry [Resting on Room Air] 86 L Pulse Oximetry [Resting with Oxygen] 97 03/20/18 20:00 03/20/18 20:15 03/21/18 00:25 Temperature 98.4 F 98.1 F Pulse Rate 86 68 Respiratory Rate 18 18 Blood Pressure 142/71 H 134/63 Pulse Oximetry 96 98 94 L Pulse Oximetry [Resting on Room Air] Pulse Oximetry [Resting with Oxygen] 03/21/18 04:25 03/21/18 07:25 Temperature 98 F 98.2 F Pulse Rate 98 H 69 Respiratory Rate 18 20 Blood Pressure 142/78 H 148/67 H Pulse Oximetry 94 L 93 L Pulse Oximetry [Resting on Room Air] Pulse Oximetry [Resting with Oxygen] Intake & Output 03/20/18 03/21/18 03/21/18 18:59 06:59 18:59 Weight 78.1 kg Other: # Voids 2 Date of Last Bowel Movement 03/19/18 03/20/18 <CheriseAlfonso - 03/21/18 11:05> Vital Signs 03/20/18 12:00 03/20/18 14:18 03/20/18 16:00 Temperature 98.2 F 98.7 F Pulse Rate 83 87 Respiratory Rate 20 18 Blood Pressure 167/71 H 187/79 H Pulse Oximetry 98 99 Pulse Oximetry [Resting on Room Air] 86 L Pulse Oximetry [Resting with Oxygen] 97 03/20/18 20:00 03/20/18 20:15 03/21/18 00:25 Temperature 98.4 F 98.1 F Pulse Rate 86 68 Respiratory Rate 18 18 Blood Pressure 142/71 H 134/63 Pulse Oximetry 96 98 94 L Pulse Oximetry [Resting on Room Air] Pulse Oximetry [Resting with Oxygen] 03/21/18 04:25 03/21/18 07:25 Temperature 98 F 98.2 F Pulse Rate 98 H 69 Respiratory Rate 18 20 Blood Pressure 142/78 H 148/67 H Pulse Oximetry 94 L 93 L Pulse Oximetry [Resting on Room Air] Pulse Oximetry [Resting with Oxygen] Intake & Output 03/20/18 03/21/18 03/21/18 18:59 06:59 18:59 Weight 78.1 kg Other: # Voids 2 Date of Last Bowel Movement 03/19/18 03/20/18 <Evie Lu N - 03/21/18 10:27> Narrative: GENERAL: Well-nourished well-developed, sitting upright in bed with nasal cannula in place. No O2 connected. HEAD: Atraumatic. Normocephalic. ENT: Multiple decayed and missing teeth both on the upper and lower mandible. CARDIOVASCULAR: Regular rate RESPIRATORY: No use of accessory/intercostal muscles, no tachypnea MUSCULOSKELETAL: normal ROM NEUROLOGICAL: Nonfocal. <Evie Lu N - 03/21/18 10:27> Assessment and Plan - Assessment (1) COPD (chronic obstructive pulmonary disease) Code(s): J44.9 - Chronic obstructive pulmonary disease, unspecified Status: Acute (2) Ovarian cancer Code(s): C56.9 - Malignant neoplasm of unspecified ovary Status: Acute (3) Depression Code(s): F32.9 - Major depressive disorder, single episode, unspecified Status : Acute (4) Positive hepatitis test Code(s): R76.8 - Other specified abnormal immunological findings in serum Status: Acute (5) Diabetes Code(s): E11.9 - Type 2 diabetes mellitus without complications Status: Acute (6) Tobacco dependence Code(s): F17.200 - Nicotine dependence, unspecified, uncomplicated Status: Acute (7) Nutrition, metabolism, and development symptoms Code(s): R63.8 - Other symptoms and signs concerning food and fluid intake Status: Acute (8) History of DVT (deep vein thrombosis) Code(s): Z86.718 - Personal history of other venous thrombosis and embolism Status: Resolved <Alfonso Luong - 03/21/18 11:05> (1) COPD (chronic obstructive pulmonary disease) Code(s): J44.9 - Chronic obstructive pulmonary disease, unspecified Status: Acute Plan: Failed walk test currently requires outpatient O2 treatment but has no address. Currently on Spiriva. 3 L nasal cannula continuous O2 ordered for use after time of discharge. Case management currently involved for disposition. Satting well overnight and while at rest (2) Ovarian cancer Code(s): C56.9 - Malignant neoplasm of unspecified ovary Status: Acute Plan: Patient revealed that she has a history of ovarian cancer Outpatient f/u and monitoring recommended (3) Depression Code(s): F32.9 - Major depressive disorder, single episode, unspecified Status : Acute Plan: Celexa (home med) (4) Positive hepatitis test Code(s): R76.8 - Other specified abnormal immunological findings in serum Status: Acute Plan: Patient positive for hepatitis B and C Hepatitis B quant: 1 billion Hep C quant: 2930. HIV negative. Liver ultrasound shows: Unremarkable. Will need follow-up with GI at discharge (5) Diabetes Code(s): E11.9 - Type 2 diabetes mellitus without complications Status: Acute Plan: Reportedly has a history of diabetes and been prescribed Lantus and Humulin sliding scale Low-dose sliding scale (6) Tobacco dependence Code(s): F17.200 - Nicotine dependence, unspecified, uncomplicated Status: Acute Plan: con't nicotine patches (7) Nutrition, metabolism, and development symptoms Code(s): R63.8 - Other symptoms and signs concerning food and fluid intake Status: Acute Plan: Regular diet No electrolyte abnormalities on admission Lovenox for DVT prophylaxis (8) History of DVT (deep vein thrombosis) Code(s): Z86.718 - Personal history of other venous thrombosis and embolism Status: Resolved Plan: Patient with reported history of a DVT states that she was previously prescribed Xarelto Lovenox for DVT prophylaxis and will continue to monitor <AbiEvie Contreras - 03/21/18 10:22> - Assessment and Plan Discharge Planning: Clear for DC. <Abid Evie Ellison - 03/21/18 10:27> - Attending Attestation Patient case discussed with resident physicians I have independently examined the patient I have read the above note and agree with the assessment and plan as discussed with me I was involved in all medical decision making for this patient COPD: Patient remains oxygen dependent but has been saturating well -She has repetitively refused a repeat walk test to see if oxygen is continued to be required -She is inconsistent in taking her medications, frequently refusing medications for her breathing and for her hypertension Disposition has been difficult for this patient, she has been evicted from several assisted living facilities and has thus been denied readmission at several of these facilities She has been medically stable for discharge for several days at this point Case management continues to work on disposition, possible discharge to a hotel if able to get her medications and oxygen Alfonso Luong MD <Alfonso Luong - 03/21/18 11:05> <Abid Evie Ellison N - Last Filed: 03/21/18 10:22> (5) Diabetes Qualifiers: Diabetes mellitus type: type 2 Diabetes mellitus termite treater helper insulin use: unspecified termite treater helper insulin use status Diabetes mellitus complication status : with unspecified complications Qualified Code(s): E11.8 - Type 2 diabetes mellitus with unspecified complications <Alfonso Luong - Last Filed: 03/21/18 11:05> (5) Diabetes Qualifiers: Diabetes mellitus type: type 2 Diabetes mellitus termite treater helper insulin use: unspecified [facility] insulin use status Diabetes mellitus complication status : with unspecified complications Qualified Code(s): E11.8 - Type 2 diabetes mellitus with unspecified complications <Evie Lu N - Last Filed: 03/21/18 10:22> (5) Diabetes Qualifiers: Diabetes mellitus type: type 2 Diabetes mellitus termite treater helper insulin use: unspecified termite treater helper insulin use status Diabetes mellitus complication status : with unspecified complications Qualified Code(s): E11.8 - Type 2 diabetes mellitus with unspecified complications <Alfonso Luong - Last Filed: 03/21/18 11:05> (5) Diabetes Qualifiers: Diabetes mellitus type: type 2 Diabetes mellitus termite treater helper insulin use: unspecified termite treater helper insulin use status Diabetes mellitus complication status : with unspecified complications Qualified Code(s): E11.8 - Type 2 diabetes mellitus with unspecified complications
--- NOTE | 2018-03-21 11:42 | P.DS ---
Date of admission: 03/07/18 11:43 Primary care physician: UNKNOWN Brief History from admission: 62 yo F with PMH of COPD, CAD, alcohol abuse, DM HTN presenting to the ED with complaints of falling, chest pain. She states she feels like she "loses her equilibrium" and falls. States she has been doing this for some time. She also complains of n/v. chest pain radiates to her L arm and neck. She is concerned about alcohol withdrawal - last drink was yesterday. Usually drinks 10 double shots of fireball whiskey per day. She endorses history of alcohol withdrawal, seizures in the past. She is a somewhat poor historian and is pyle positive on her ROS No fevers, ROS are pyle positive: Reports face pain, headache, vision changes, productive cough, yellow sputum, belly pain, dysuria PMH: HTN, COPD (states she is on 3 L of O2 NC at home), CAD w/ GA 6 years ago, TIA, DVT 1 year ago, liver disease, DM Meds: Not currently taking any medications, states she was supposed to be on Xarelto, inhalers, lantus and Humulin R SS Surgical history: cholecystectomy, C section, Nasal repair, hysterectomy ( complete) Family Hx: CAD, mother of non-hodgkins lymphoma Social: Lives alone in a hotel room, 5 cig per day, no substance abuse, alcohol as above Would want her brother to be her medical decision maker if she were unable to - Junior Mora [phone] DS: Diagnosis - Discharge Diagnosis (1) COPD (chronic obstructive pulmonary disease) Status: Acute (2) Ovarian cancer Status: Acute (3) Depression Status: Acute (4) Positive hepatitis test Status: Acute (5) Diabetes Status: Acute (6) Tobacco dependence Status: Acute (7) Nutrition, metabolism, and development symptoms Status: Acute DS: Medications - Discharge Medications Prescriptions: albuterol sulfate [Ventolin HFA] 2 puff INH Q4H PRN #1 inhaler PRN Reason: Shortness Of Breath/Wheezing citalopram 40 mg PO DAILY #30 tab gabapentin [Neurontin] 300 mg PO TID #90 cap lisinopril 20 mg PO DAILY #30 tab tiotropium bromide [Spiriva with HandiHaler] 18 mcg INH DAILY #1 inh DS: Summary Hospital Course: 62-year-old female with a history of COPD, diabetes, history of DVT, CAD, history of alcohol abuse presented to the ED with multiple complaints including nausea vomiting, falling recently, and alcohol withdrawal. UA on admission grew ESBL E. coli, consulted ID who recommended a repeat catheterized urine since she was asymptomatic. The repeat UA was within normal limits, antibiotics were discontinued and ID signed off. She is not currently being treated on any antibiotics. She also has a history of COPD and had bilateral wheezes on respiratory exam but patient denied DuoNeb's and albuterol treatments. Patient currently on Spiriva daily. Is found to have hepatitis B and C positive titers and will follow up with GI as outpatient. She continued to be on CIWA protocol requiring 2 mg Ativan initially due to patient's history of delirium tremors. On day 6 of withdrawal Patient was then found to have 1 and a half pills of Ativan in bed. CIWA protocol was held and Ativan was held. Patient had not received Ativan for 24 hours before this incident. Psychiatry was consulted and did not recommend inpatient psych admission. Recommended avoiding benzodiazepines and starting gabapentin 3 times daily and Celexa 40 for anxiety. Patient revealed that she had a history of ovarian cancer and stated she was on hospice. Palliative care consulted and recommended hospice. Hospice recommended senior nursing facility with hospice. She is currently medically clear for discharge. Medically she is not a candidate for a SNF, but she failed her home walk test requiring oxygen and has no established home/address so CM is working to get her established with a long term care pharmacist care facility. CM was not able to find placement for patient at any centers, so dc to hotel w/clothes , bus passes, medications, and portable O2 supplies was set up by administration w/ charge and CM. - Time Spent with Patient Total time spent providing and/or coordinating discharge services: Greater than 30 minutes Exam Vital signs: Vital Signs 03/20/18 12:00 03/20/18 14:18 03/20/18 16:00 Temperature 98.2 F 98.7 F Pulse Rate 83 87 Respiratory Rate 20 18 Blood Pressure 167/71 H 187/79 H Pulse Oximetry 98 99 Pulse Oximetry [Resting on Room Air] 86 L Pulse Oximetry [Resting with Oxygen] 97 03/20/18 20:00 03/20/18 20:15 03/21/18 00:25 Temperature 98.4 F 98.1 F Pulse Rate 86 68 Respiratory Rate 18 18 Blood Pressure 142/71 H 134/63 Pulse Oximetry 96 98 94 L Pulse Oximetry [Resting on Room Air] Pulse Oximetry [Resting with Oxygen] 03/21/18 04:25 03/21/18 07:25 Temperature 98 F 98.2 F Pulse Rate 98 H 69 Respiratory Rate 18 20 Blood Pressure 142/78 H 148/67 H Pulse Oximetry 94 L 93 L Pulse Oximetry [Resting on Room Air] Pulse Oximetry [Resting with Oxygen] Intake & Output 03/20/18 03/21/18 03/21/18 18:59 06:59 18:59 Weight 78.1 kg Other: # Voids 2 Date of Last Bowel Movement 03/19/18 03/20/18 03/20/18 Narrative: GENERAL: Well-nourished well-developed, sitting upright in bed with nasal cannula in place. No O2 connected. HEAD: Atraumatic. Normocephalic. ENT: Multiple decayed and missing teeth both on the upper and lower mandible. CARDIOVASCULAR: Regular rate RESPIRATORY: No use of accessory/intercostal muscles, no tachypnea MUSCULOSKELETAL: normal ROM NEUROLOGICAL: Nonfocal. Results Procedures completed during hospitalization: N/A Labs on day of discharge: Labs from last 24 hours 03/21/18 03/20/18 03/20/18 08:58 20:57 16:30 POC Glucose 136 H 128 H 159 H - Impressions ITS Impressions Liver Ultrasound 03/09/18 00:00 CONCLUSION: 1. No acute finding is identified to explain the abdominal pain. 2. Stable nonspecific cystic lesions within the spleen. However, the lack of significant change since July 2015 is consistent with a benign process. Chest X-Ray 03/10/18 00:00 CONCLUSION: 1. Cardiomegaly with subtle positive fluid balance. Discharge Plan - Discharge Disposition Patient Disposition: Discharge Home - Discharge Condition Condition: Stable - Discharge Order Discharge Orders: Discharge Order (Routine); Ordered 03/14/18 Ordered By: Carey Deal R1 - Physicians Team Primary Care Provider: UNKNOWN, Attending Provider: Alfonso Luong Other Providers: [employer],Insurance ; Isa Perry MD ; Kylie Domínguez MD ; Rayray Decker MD ; [facility],Agency ; [facility],Agency ; [facility],Agency
== END 2018-03-21 10:50 | disposition home or self-care (01) ==
LOC: NEPC 06:21 → NEDA 06:21 → N05 14:16
PROVIDERS: ADMIT Family Medicine; ATTEND Family Medicine